=== PATIENT | female | born 1935 | race African-American/Black ===

== ENCOUNTER 2018-01-03 16:26 | Inpatient (IN) | payer MEDICARE, OTHER ==
[~2018-01-03] VITALS: Ht 157.5 cm; Wt 895.8 kg
[2018-01-03 16:40] VITALS: BP 126/58
[2018-01-03] MEDS ORDERED: Solu-MEDROL 125mg Inj IVP ONE (16:45)
[2018-01-03] MEDS: Albuterol ud Inhalation HHN SCH ×3 (16:48→17:19)
[2018-01-03] MEDS: Ipratropium 0.02% Inh Soln 2.5ml UD HHN SCH ×3 (16:48→17:19)
[2018-01-03] MEDS ORDERED: AMIODARONE HCL400 M1 ORAL (16:50)
[2018-01-03] MEDS ORDERED: ASPIRIN81 MG ORAL (16:50)
[2018-01-03] MEDS ORDERED: COLACE100 MG ORAL (16:53)
[2018-01-03] MEDS ORDERED: ATORVASTATIN CA40 MG ORAL (16:53)
[2018-01-03] MEDS ORDERED: CRANBERRY450 M4 PO (16:53)
[2018-01-03] MEDS ORDERED: MULTIVITAMINS1 EAC8 ORAL (16:53)
[2018-01-03] MEDS ORDERED: ADVAIR 250-501 EACH INH ×2 (16:53→18:33)
[2018-01-03] MEDS ORDERED: POTASSIUM CHLO20 ME1 ORAL (16:53)
[2018-01-03] MEDS ORDERED: CARVEDILOL6.25 MG ORAL ×2 (16:53→18:29)
[2018-01-03] MEDS ORDERED: HEPARIN SO5000 UNIT2 SUBQ (16:53)
[2018-01-03] MEDS ORDERED: ZANTAC150 MG ORAL (16:54)
[2018-01-03] MEDS ORDERED: ACETAMINOPHEN325 M1 ORAL ×2 (16:54→18:44)
[2018-01-03] MEDS ORDERED: MONTELUKAST SOD10 MG ORAL ×2 (16:54→18:36)
[2018-01-03] MEDS ORDERED: ROXICODONE15 MG ORAL (16:54)
[2018-01-03] MEDS ORDERED: LORazepam Inj 2mg/ml 1ml IV ONE (17:00)
[2018-01-03] MEDS ORDERED: SIMETHICONE80 MG ORAL ×2 (17:03→18:48)
[2018-01-03] MEDS ORDERED: NITROSTAT0.4 M2 SL (17:03)
[2018-01-03] MEDS ORDERED: ZOFRAN4 M1 ORAL (17:03)
[2018-01-03 17:42] LABS: BASOPHILS % (AUTO) 0.8 % (0.0-2.0); HEMATOCRIT 39.9 % (37.0-47.0); HEMOGLOBIN 12.4 G/DL (12.0-16.0); LYMPHOCYTES % (AUTO) 26.7 % (20.0-45.0); MEAN CORPUSCULAR VOLUME 86 FL (80-99); MONOCYTES % (AUTO) 10.1 % (1.0-10.0); NEUTROPHILS % (AUTO) 62.4 % (45.0-75.0); PLATELET COUNT 184 K/UL (150-450); RED BLOOD COUNT 4.66 M/UL (4.20-5.40); RED CELL DISTRIBUTION WIDTH 14.8 % (11.6-14.8); WHITE BLOOD COUNT 7.1 K/UL (4.8-10.8)
[2018-01-03 18:00] VITALS: BP 134/61
[2018-01-03] MEDS ORDERED: Oseltamivir 75mg cap ORAL ONE (18:15)
[2018-01-03] MEDS ORDERED: PACERONE100 MG ORAL (18:25)
[2018-01-03] MEDS ORDERED: CRANBERRY450 M3 PO (18:27)
[2018-01-03 18:30] LABS: ALANINE AMINOTRANSFERASE 86 U/L (12-78); ALBUMIN 3.3 G/DL (3.4-5.0); ALBUMIN/GLOBULIN RATIO 0.7 (1.0-2.7); ALKALINE PHOSPHATASE 131 U/L (46-116); ASPARTATE AMINO TRANSFERASE 79 U/L (15-37); BILIRUBIN,TOTAL 0.2 MG/DL (0.2-1.0); BLOOD UREA NITROGEN 67 mg/dL (7-18); CALCIUM 8.4 MG/DL (8.5-10.1); CARBON DIOXIDE 27 MMOL/L (21-32); CKMB 0.7 NG/ML (0.0-3.6); CREATINE KINASE 113 U/L (26-308); CREATININE 1.9 MG/DL (0.55-1.30)
[2018-01-03 18:33] LABS: CHLORIDE 99 MMOL/L (98-107); POTASSIUM 5.9 MMOL/L (3.5-5.1); SODIUM 132 MMOL/L (136-145)
[2018-01-03] MEDS ORDERED: ATORVASTATIN CA80 MG ORAL (18:35)
[2018-01-03] MEDS ORDERED: OXYCODONE HCL5 M2 ORAL (18:45)
[2018-01-03] MEDS ORDERED: Albuterol/Ipratropium 3ml neb HHN PRN (18:45)
[2018-01-03] MEDS ORDERED: Nitroglycerin Subl 0.4mg tab SL PRN (18:45)
[2018-01-03] MEDS ORDERED: Sodium Polystyrene Sulfonate 15gm Powder ORAL ONE (18:45)
[2018-01-03] MEDS ORDERED: Azithromycin 500 MG in NS 275 ML IV ONE (18:45)
[2018-01-03] MEDS ORDERED: LORazepam Inj 2mg/ml 1ml IV PRN (18:45)
[2018-01-03] MEDS ORDERED: Piperacillin/Tazobactam 3.375 GM in NS 110 ML IVPB ONE (18:45)
[2018-01-03] MEDS ORDERED: Promethazine/Codeine 5ml UD ORAL PRN (18:45)
[2018-01-03] MEDS ORDERED: Azithromycin 500mg Inj IV ONE ×2 (18:48→20:11)
[2018-01-03] MEDS ORDERED: Zosyn 3.375gm inj ONE (18:50)
--- NOTE | 2018-01-03 18:51 | Emergency Room Report ---
History of Present Illness General Chief Complaint: Dyspnea/Respdistress Source: Medical Record Present Illness HPI 82-year-old female presents to ED for evaluation. Patient presents with shortness of breath. Starting today at [facility]. History of COPD. Started on breathing treatments. Upon arrival patient appears anxious, screaming. Denies chest pain. Denies fevers chills at bedside states patient has history of CHF and COPD. Does have some anxiety. Susceptible to fluid overload. No other aggravating or relieving factors. Denies any other associated symptoms Allergies: Coded Allergies: MORPHINE (Verified Allergy, Unknown, 01/03/18) Uncoded Allergies: LACTOSE (Allergy, Unknown, 01/03/18) Patient History Past Medical History: HTN, CAD, COPD Past Surgical History: pacemaker Pertinent Family History: none Social History: Denies: smoking, alcohol use, drug use Now: No Immunizations: UTD Reviewed Nursing Documentation: PMH: Agreed, PSxH: Agreed Nursing Documentation-PMH Past Medical History: No History, Except For Hx Cardiac Problems: Yes - heart failure, CAD, Anemia Hx Hypertension: Yes Hx Pacemaker: Yes Hx COPD: Yes Review of Systems All Other Systems: negative except mentioned in HPI Physical Exam Vital Signs Date Time Temp Pulse Resp B/P (MAP) Pulse Ox O2 Delivery O2 Flow Rate FiO2 01/03/18 16:25 97.8 87 26 107/67 97 Non-Rebreather 97.9 01/03/18 16:40 21 01/03/18 16:40 8.0 Sp02 EP Interpretation: reviewed, normal General Appearance: alert, GCS 15, non-toxic, mild distress Head: normocephalic, atraumatic Eyes: bilateral eye normal inspection, bilateral eye PERRL ENT: hearing grossly normal, normal pharynx, no angioedema, normal voice Neck: full range of motion, supple/symm/no masses Respiratory: chest non-tender, crackles, speaking full sentences, wheezing Cardiovascular #1: regular rate, rhythm, no edema Cardiovascular #2: 2+ carotid (R), 2+ carotid (L), 2+ radial (R), 2+ radial (L) , 2+ dorsalis pedis (R), 2+ dorsalis pedis (L) Gastrointestinal: normal bowel sounds, non tender, soft, non-distended, no guarding, no rebound Rectal: deferred Genitourinary: normal inspection, no CVA tenderness Musculoskeletal: back normal, gait/station normal, normal range of motion, non- tender Neurologic: alert, oriented x3, responsive, motor strength/tone normal, sensory intact, speech normal Psychiatric: judgement/insight normal, memory normal, no suicidal/homicidal ideation, anxious Reflexes: 3+ bicep (R), 3+ bicep (L), 3+ tricep (R), 3+ tricep (L), 3+ knee (R) , 3+ knee (L) Skin: normal color, no rash, warm/dry, well hydrated Lymphatic: no adenopathy Procedures Critical Care Time Critical Care Time i. I feel this is a highly complex case requiring extensive working including EKG/Rhythm strip, Xray/CT/US, Blood/urine lab work, repeat exams while in ED, and administration of strong opiates/narcotics for pain control, admission to hospital or close patient follow up. Total time: 30 min bedside evaluation and treatment excludes procedures (EKG). Reason for critical care: COPD, respiratory distress, hyperkalemia, elevated troponin Possible complications: hypotension, hypertension, MA, shock, arrhythmias, metabolic acidosis, end organ damage, respiratory failure. Interventions: Labs, EKG, chest x-ray, nebulizer treatment, ABG, BiPAP. Kayexalate. Antibiotics. Aspirin. Course: Patient presented with shortness of breath. nebulizer treatments started. ABG shows acidosis. BIPAP started. Lactic elevated. Troponin 0.241. Potassium 5.9. Given Kayexalate. Given antibiotics. Given aspirin. Consultations: nursing staff, EMS, family Performed by: Dr Durand Tolerated well condition = serious j. because of unstable vital signs this patient had a condition that could potentially threaten life or limb. I feel this is a critical patient who required my full attention while patient was considered critical. Total Critical Care Time excluding procedures was greater than 35 minutes Medical Decision Making Diagnostic Impression: Primary Impression: CHF exacerbation Qualified Codes: I50.9 - Heart failure, unspecified Additional Impressions: COPD exacerbation Renal insufficiency Hyperkalemia, diminished renal excretion Elevated troponin I level Influenza B ER Course Hospital Course 82-year-old F presenting to ED with SOB. h/o COPD/CHF Differential diagnoses include: Pneumonia, CHF exacerbation, pneumothorax, fluid overload Clinical course Patient placed on stretcher. On potline monitor with stable vitals. After initial history and physical, I ordered nebulizer treatments. I ordered labs, IV fluids, EKG, chest x-ray, blood cultures, UA. Labs - no leukocytosis noted, hemoglobin/hematocrit stable, BUN/Cr elevated, K 5.9, trop 0.241, lactate elevated him influenza B-positive CXR - cardiomegaly, bilateral interstitial congestion. pacemaker. ?PNA EKG - paced rhythm ABG shows some acidosis. BiPAP started. Patient given Ativan. Tolerating BiPAP abx given. Given aspirin. Given Kayexalate. given tamiflu Case discussed with Dr. Garcia and he agreed to the patient to his service for further care and support I feel this is a highly complex case requiring extensive working including EKG/ Rhythm strip, Xray/CT/US, Blood/urine lab work, repeat exams while in ED, and administration of strong opiates/narcotics for pain control, admission to hospital or close patient follow up. Diagnosis - COPD exacerbation, CHF exacerbation, renal insufficiency, hyperkalemia, elevated troponin, influenza B Patient admitted to [facility] in serious condition Labs Test 01/03/18 17:20 01/03/18 17:35 White Blood Count 7.1 K/UL (4.8-10.8) Red Blood Count 4.66 M/UL (4.20-5.40) Hemoglobin 12.4 G/DL (12.0-16.0) Hematocrit 39.9 % (37.0-47.0) Mean Corpuscular Volume 86 FL (80-99) Mean Corpuscular Hemoglobin 26.6 PG (27.0-31.0) Mean Corpuscular Hemoglobin Concent 31.1 G/DL (32.0-36.0) Red Cell Distribution Width 14.8 % (11.6-14.8) Platelet Count 184 K/UL (150-450) Mean Platelet Volume 7.7 FL (6.5-10.1) Neutrophils (%) (Auto) 62.4 % (45.0-75.0) Lymphocytes (%) (Auto) 26.7 % (20.0-45.0) Monocytes (%) (Auto) 10.1 % (1.0-10.0) Eosinophils (%) (Auto) 0.0 % (0.0-3.0) Basophils (%) (Auto) 0.8 % (0.0-2.0) Sodium Level 132 MMOL/L (136-145) Potassium Level 5.9 MMOL/L (3.5-5.1) Chloride Level 99 MMOL/L (98-107) Carbon Dioxide Level 27 MMOL/L (21-32) Blood Urea Nitrogen 67 mg/dL (7-18) Creatinine 1.9 MG/DL (0.55-1.30) Estimat Glomerular Filtration Rate mL/min (>60) Glucose Level 120 MG/DL (74-106) Lactic Acid Level 2.40 mmol/L (0.66-2.22) Calcium Level 8.4 MG/DL (8.5-10.1) Total Bilirubin 0.2 MG/DL (0.2-1.0) Aspartate Amino Transf (AST/SGOT) 79 U/L (15-37) Alanine Aminotransferase (ALT/SGPT) 86 U/L (12-78) Alkaline Phosphatase 131 U/L (46-116) Total Creatine Kinase 113 U/L (26-308) Creatine Kinase MB 0.7 NG/ML (0.0-3.6) Creatine Kinase MB Relative Index 0.6 Troponin I 0.241 ng/mL (0.000-0.056) Pro-B-Type Natriuretic Peptide 6307 pg/mL (0-125) Total Protein 7.8 G/DL (6.4-8.2) Albumin 3.3 G/DL (3.4-5.0) Globulin 4.5 g/dL Albumin/Globulin Ratio 0.7 (1.0-2.7) Arterial Blood pH 7.248 (7.350-7.450) Arterial Blood Partial Pressure CO2 54.6 mmHg (35.0-45.0) Arterial Blood Partial Pressure O2 214.6 mmHg (75.0-100.0) Arterial Blood HCO3 23.3 mmol/L (22.0-26.0) Arterial Blood Oxygen Saturation 98.7 % (92.0-98.0) Arterial Blood Base Excess -4.4 Jorden Test Positive EKG Diagnostic Results Rate: normal Rhythm: other - paced ST Segments: no acute changes ASA given to the pt in ED: Yes Rhythm Strip Diag. Results EP Interpretation: yes Rhythm: no PVC's, no ectopy Chest X-Ray Diagnostic Results Chest X-Ray Diagnostic Results : Chest X-Ray Ordered: Yes # of Views/Limited/Complete: 1 View Indication: Shortness of Breath Interpretation: no pneumothorax, other - cardiomegaly. bilateral interstitial congestion. pacemaker Impression: Other - chf Electronically Signed by: Electronically signed by Obed Durand MD Last Vital Signs Date Time Temp Pulse Resp B/P (MAP) Pulse Ox O2 Delivery O2 Flow Rate FiO2 01/03/18 18:21 73 30 96 Facial 25 01/03/18 18:00 90.7 134/61 8.0 90.7 Status: improved Disposition: ADMITTED INPATIENT Condition: Serious Referrals: NON PHYSICIAN (PCP) OBED DURAND M.D. Jan 03, 2018 18:51
[2018-01-03] MEDS ORDERED: FUROSEMIDE40 MG ORAL (18:53)
[2018-01-03] MEDS ORDERED: PANTOPRAZOLE SO40 MG ORAL (18:54)
[2018-01-03] MEDS ORDERED: DUONEB 0.5-3(2.53 ML HHN (18:58)
[2018-01-03 20:00] VITALS: BP 112/50
[2018-01-03 21:00] VITALS: BP 96/45
[2018-01-03] MEDS: Atorvastatin 80mg tab ORAL SCH (21:00)
[2018-01-03] MEDS: Heparin 5000 units/ml inj SUBQ SCH (21:00)
[2018-01-03] MEDS: Solu-MEDROL 125mg Inj IV SCH (23:20)
[2018-01-04] MEDS: Solu-MEDROL 125mg Inj IV SCH ×4 (05:49→23:35)
[2018-01-04 06:58] LABS: BASOPHILS % (AUTO) 0.4 % (0.0-2.0); HEMATOCRIT 32.5 % (37.0-47.0); HEMOGLOBIN 10.3 G/DL (12.0-16.0); LYMPHOCYTES % (AUTO) 11.2 % (20.0-45.0); MEAN CORPUSCULAR VOLUME 85 FL (80-99); MONOCYTES % (AUTO) 4.3 % (1.0-10.0); NEUTROPHILS % (AUTO) 84.1 % (45.0-75.0); PLATELET COUNT 135 K/UL (150-450); RED BLOOD COUNT 3.82 M/UL (4.20-5.40); RED CELL DISTRIBUTION WIDTH 14.5 % (11.6-14.8); WHITE BLOOD COUNT 4.7 K/UL (4.8-10.8)
[2018-01-04 07:08] LABS: ALANINE AMINOTRANSFERASE 69 U/L (12-78); ALBUMIN 2.6 G/DL (3.4-5.0); ALBUMIN/GLOBULIN RATIO 0.6 (1.0-2.7); ALKALINE PHOSPHATASE 105 U/L (46-116); ANION GAP 8 mmol/L (5-15); ASPARTATE AMINO TRANSFERASE 65 U/L (15-37); BILIRUBIN,TOTAL 0.2 MG/DL (0.2-1.0); BLOOD UREA NITROGEN 63 mg/dL (7-18); CALCIUM 7.9 MG/DL (8.5-10.1); CARBON DIOXIDE 25 MMOL/L (21-32); CHLORIDE 107 MMOL/L (98-107); CREATININE 1.8 MG/DL (0.55-1.30); POTASSIUM 5.3 MMOL/L (3.5-5.1); SODIUM 139 MMOL/L (136-145)
[2018-01-04 07:25] LABS: APPEARANCE,URINE CLEAR; BILIRUBIN, URINE NEGATIVE (NEGATIVE); COLOR,URINE PALE YELLOW; GLUCOSE, URINE (UA) NEGATIVE (NEGATIVE); KETONES,URINE NEGATIVE (NEGATIVE); LEUKOCYTE ESTERASE ,URINE NEGATIVE (NEGATIVE); NITRITE,URINE NEGATIVE (NEGATIVE); PH,URINE 6 (4.5-8.0); PROTEIN,URINE 3+ (NEGATIVE); UROBILINOGEN,URINE NORMAL MG/DL (0.0-1.0)
[2018-01-04 08:00] VITALS: BP 99/62
--- NOTE | 2018-01-04 08:08 | Consultation ---
History of Present Illness General Chief Complaint: Dyspnea/Respdistress Present Illness Allergies: Coded Allergies: MORPHINE (Verified Allergy, Unknown, 01/03/18) Uncoded Allergies: LACTOSE (Allergy, Unknown, 01/03/18) Medication History Scheduled Amiodarone Hcl* (Pacerone*), 100 MG ORAL DAILY, (Reported) Aspirin* (Aspirin*), 81 MG ORAL DAILY, (Reported) Atorvastatin Calcium* (Lipitor*), 80 MG ORAL BEDTIME, (Reported) Carvedilol* (Carvedilol*), 6.25 MG ORAL BID, (Reported) Cranberry Fruit Concentrate (Cranberry), 450 MG PO DAILY, (Reported) Docusate Sodium* (Colace*), 100 MG ORAL DAILY, (Reported) Fluticasone/Salmeterol (Advair 250-50 Diskus), 1 PUFF INH BID, (Reported) Furosemide* (Lasix*), 40 MG ORAL BID, (Reported) Heparin Sod (Porcine) (Heparin Sodium*), 5,000 UNITS SUBQ EVERY 12 HOURS, ( Reported) Montelukast Sodium* (Montelukast Sodium*), 10 MG ORAL BEDTIME, (Reported) Multivitamin With Minerals (Multivitamins With Minerals*), 1 TAB ORAL DAILY, ( Reported) Pantoprazole* (Pantoprazole*), 40 MG ORAL DAILY, (Reported) Potassium Chloride* (K-Dur*), 20 MEQ ORAL TWICE A DAY, (Reported) Ranitidine Hcl* (Zantac*), 150 MG ORAL BEDTIME, (Reported) Scheduled PRN Acetaminophen* (Acetaminophen 325MG Tablet*), 650 MG ORAL Q6H PRN for Mild Pain/ Temp > 100.5, (Reported) Ipratropium/Albuterol Sulfate (DuoNeb 0.5-3(2.5)mg/3ml), 3 ML HHN TID PRN for Shortness of Breath, (Reported) Nitroglycerin (Nitrostat), 0.4 MG SL for chest pain, (Reported) Ondansetron (Zofran), 4 MG ORAL Q6H PRN for Nausea & Vomiting, (Reported) Oxycodone Hcl* (Oxycodone Hcl*), 5 MG ORAL Q6H PRN for For Pain, (Reported) Simethicone* (Simethicone*), 80 MG ORAL Q6HR PRN for GAS PAIN, (Reported) Patient History Healthcare decision maker ASHLEY MADERA Resuscitation status Full Code Advanced Directive on File Yes Physical Exam Last 24 Hour Vital Signs Date Time Temp Pulse Resp B/P (MAP) Pulse Ox O2 Delivery O2 Flow Rate FiO2 01/04/18 05:46 60 20 98 Facial 25 01/04/18 04:00 60 01/04/18 04:00 8.0 25 01/04/18 03:23 61 22 99 Facial 25 01/04/18 00:58 60 20 98 Facial 25 01/04/18 00:00 8.0 25 01/04/18 00:00 60 01/03/18 22:31 60 20 98 Facial 25 01/03/18 21:10 99.8 60 22 96/45 99 8.0 25 99.8 01/03/18 21:09 70 22 99 Facial 25 01/03/18 21:00 99.8 60 20 96/45 98 8.0 25 99.8 01/03/18 20:00 100.1 64 18 112/50 99 8.0 25 100.1 01/03/18 18:21 73 30 96 Facial 25 01/03/18 18:00 90.7 60 27 134/61 100 Simple Mask 8.0 90.7 01/03/18 17:56 62 28 97 Room Air 21 01/03/18 16:48 69 31 97 Room Air 21 01/03/18 16:40 80 31 Simple Mask 8.0 21 01/03/18 16:40 99.2 80 31 126/58 100 Simple Mask 8.0 99.2 01/03/18 16:40 69 31 Room Air 21 01/03/18 16:25 97.8 87 26 107/67 97 Non-Rebreather 97.9 Intake and Output 01/03/18 01/04/18 19:00 07:00 Intake Total 0 ml 210 ml Output Total 300 ml Balance 0 ml -90 ml Intake Oral 0 ml IV Total 210 ml Output Urine Total 300 ml # Bowel Movements 4 Laboratory Tests Test 01/03/18 17:20 01/03/18 17:35 01/03/18 18:15 01/04/18 05:45 White Blood Count 7.1 K/UL (4.8-10.8) 4.7 K/UL (4.8-10.8) L Red Blood Count 4.66 M/UL (4.20-5.40) 3.82 M/UL (4.20-5.40) L Hemoglobin 12.4 G/DL (12.0-16.0) 10.3 G/DL (12.0-16.0) L Hematocrit 39.9 % (37.0-47.0) 32.5 % (37.0-47.0) L Mean Corpuscular Volume 86 FL (80-99) 85 FL (80-99) Mean Corpuscular Hemoglobin 26.6 PG (27.0-31.0) L 27.0 PG (27.0-31.0) Mean Corpuscular Hemoglobin Concent 31.1 G/DL (32.0-36.0) L 31.8 G/DL (32.0-36.0) L Red Cell Distribution Width 14.8 % (11.6-14.8) 14.5 % (11.6-14.8) Platelet Count 184 K/UL (150-450) 135 K/UL (150-450) L Mean Platelet Volume 7.7 FL (6.5-10.1) 8.1 FL (6.5-10.1) Neutrophils (%) (Auto) 62.4 % (45.0-75.0) 84.1 % (45.0-75.0) H Lymphocytes (%) (Auto) 26.7 % (20.0-45.0) 11.2 % (20.0-45.0) L Monocytes (%) (Auto) 10.1 % (1.0-10.0) H 4.3 % (1.0-10.0) Eosinophils (%) (Auto) 0.0 % (0.0-3.0) 0.0 % (0.0-3.0) Basophils (%) (Auto) 0.8 % (0.0-2.0) 0.4 % (0.0-2.0) Sodium Level 132 MMOL/L (136-145) L 139 MMOL/L (136-145) Potassium Level 5.9 MMOL/L (3.5-5.1) H 5.3 MMOL/L (3.5-5.1) H Chloride Level 99 MMOL/L (98-107) 107 MMOL/L (98-107) Carbon Dioxide Level 27 MMOL/L (21-32) 25 MMOL/L (21-32) Blood Urea Nitrogen 67 mg/dL (7-18) H 63 mg/dL (7-18) H Creatinine 1.9 MG/DL (0.55-1.30) H 1.8 MG/DL (0.55-1.30) H Estimat Glomerular Filtration Rate mL/min (>60) mL/min (>60) Glucose Level 120 MG/DL (74-106) H 201 MG/DL (74-106) H Lactic Acid Level 2.40 mmol/L (0.66-2.22) H 1.30 mmol/L (0.66-2.22) Calcium Level 8.4 MG/DL (8.5-10.1) L 7.9 MG/DL (8.5-10.1) L Total Bilirubin 0.2 MG/DL (0.2-1.0) 0.2 MG/DL (0.2-1.0) Aspartate Amino Transf (AST/SGOT) 79 U/L (15-37) H 65 U/L (15-37) H Alanine Aminotransferase (ALT/SGPT) 86 U/L (12-78) H 69 U/L (12-78) Alkaline Phosphatase 131 U/L (46-116) H 105 U/L (46-116) Total Creatine Kinase 113 U/L (26-308) Creatine Kinase MB 0.7 NG/ML (0.0-3.6) Creatine Kinase MB Relative Index 0.6 Troponin I 0.241 ng/mL (0.000-0.056) Pro-B-Type Natriuretic Peptide 6307 pg/mL (0-125) H Total Protein 7.8 G/DL (6.4-8.2) 6.6 G/DL (6.4-8.2) Albumin 3.3 G/DL (3.4-5.0) L 2.6 G/DL (3.4-5.0) L Globulin 4.5 g/dL 4.0 g/dL Albumin/Globulin Ratio 0.7 (1.0-2.7) L 0.6 (1.0-2.7) L Arterial Blood pH 7.248 (7.350-7.450) Arterial Blood Partial Pressure CO2 54.6 mmHg (35.0-45.0) H Arterial Blood Partial Pressure O2 214.6 mmHg (75.0-100.0) H Arterial Blood HCO3 23.3 mmol/L (22.0-26.0) Arterial Blood Oxygen Saturation 98.7 % (92.0-98.0) H Arterial Blood Base Excess -4.4 Jorden Test Positive Anion Gap 8 mmol/L (5-15) Microbiology Date/Time Source Procedure Growth Status 01/03/18 16:42 Nasal Nares Influenza Types A,B Antigen (MARI) - Final Complete Height (Feet): 5 Height (Inches): 2.00 Weight (Pounds): 196 Medications Current Medications Medications (Trade) Dose Ordered Sig/Jordan Route PRN Reason Start Time Stop Time Status Last Admin Dose Admin Acetaminophen (Tylenol) 650 mg Q4H PRN ORAL fever 01/03/18 18:45 02/02/18 18:44 Albuterol/ Ipratropium (Albuterol/ Ipratropium) 3 ml Q4H PRN HHN dyspnea 01/03/18 18:45 01/08/18 18:44 Amiodarone HCl (Cordarone) 100 mg DAILY ORAL 01/04/18 09:00 02/03/18 08:59 Atorvastatin Calcium (Lipitor) 80 mg BEDTIME ORAL 01/03/18 21:00 02/02/18 20:59 Carvedilol (Coreg) 6.25 mg BID ORAL 01/04/18 09:00 02/03/18 08:59 Clonidine HCl (Catapres Tab) 0.1 mg Q4H PRN ORAL sbp more than 160 01/03/18 18:45 02/02/18 18:44 Dextrose (Dextrose 50%) STAT PRN IV Hypoglycemia 01/03/18 18:45 02/02/18 18:44 Heparin Sodium (Porcine) (Heparin 5000 units/ml) 5,000 units EVERY 12 HOURS SUBQ 01/03/18 21:00 02/02/18 20:59 Levofloxacin 100 ml @ 100 mls/hr Q24H IVPB 01/03/18 23:00 01/10/18 22:59 01/03/18 23:20 Lorazepam (Ativan 2mg/ml 1ml) 0.5 mg Q4H PRN IV For Anxiety 01/03/18 18:45 01/10/18 18:44 Methylprednisolone Sodium Succinate (Solu-MEDROL) 60 mg EVERY 6 HOURS IV 01/04/18 00:00 02/03/18 00:00 01/04/18 05:49 Nitroglycerin (Ntg) 0.4 mg Q5M X 3 DOSES PRN SL Prn Chest Pain 01/03/18 18:45 02/02/18 18:44 Ondansetron HCl (Zofran) 4 mg Q6H PRN IVP Nausea & Vomiting 01/03/18 18:45 02/02/18 18:44 Promethazine HCl/ Codeine (Phenergan with Codeine) 5 ml Q6H PRN ORAL cough 01/03/18 18:45 02/02/18 18:44 Temazepam (Restoril) 15 mg HSPRN PRN ORAL Insomnia 01/03/18 18:45 01/10/18 18:44 Assessment/Plan Assessment/Plan ASSESSMENT acute hypoxemic RF acute COPD exacerbation probably acute CHF exacerbation elevated troponin hyperkalemia influenza B infection ROSA vs CKD HTN pacemaker PAF anemia [facility] OF [facility] O2 titrate to keep sat above 92%, not hypercapnic at thsi timeb pulm toilet IV steroids trial of theophylline a/tussive prn empiric abx + Tamiflu droplet isolation sputum cx serial troponin cardio eval ECHO resume home meds : Amiodarone, statin, BB apparently hx of PAF, not om a/coagulation just ASA SR on tele check TSH monitor renal parameters, lytes, correct as needed CKD? vs ROSA monitor counts DVT prophylaxis case discussed and evaluated by supervising physician Estuardo ([facility]Komal NP Jan 04, 2018 08:08
--- NOTE | 2018-01-04 09:21 | History and Physical ---
History of Present Illness General Date patient seen: Jan 04, 2018 Time patient seen: 08:30 Reason for Hospitalization: Dyspnea/Respdistress Present Illness HPI 82-year-old female with PMH of COPD, CHF, HTN, pacemaker presented to ED with shortness of breath. Upon arrival patient appeared anxious, screaming. Denied chest pain. Denied fevers chills Workup in ED revealed no leukocytosis, hypoxia, tachypnea, afebrile initially placed on NRM stable HH elevated troponin-0.241 lactic acid-2.4 K-5.9 renal insufficiency BUN-67 and creat-1.9 elevated LFT CXR with evidence of CHF pro BNP 6307 ECG with paced rhythm ABG with hypercapnia and acidosis influenza screen + influenza B patient was admitted for further management Allergies: Coded Allergies: MORPHINE (Verified Allergy, Unknown, 01/03/18) Uncoded Allergies: LACTOSE (Allergy, Unknown, 01/03/18) Medication History Scheduled Amiodarone Hcl* (Pacerone*), 100 MG ORAL DAILY, (Reported) Aspirin* (Aspirin*), 81 MG ORAL DAILY, (Reported) Atorvastatin Calcium* (Lipitor*), 80 MG ORAL BEDTIME, (Reported) Carvedilol* (Carvedilol*), 6.25 MG ORAL BID, (Reported) Cranberry Fruit Concentrate (Cranberry), 450 MG PO DAILY, (Reported) Docusate Sodium* (Colace*), 100 MG ORAL DAILY, (Reported) Fluticasone/Salmeterol (Advair 250-50 Diskus), 1 PUFF INH BID, (Reported) Furosemide* (Lasix*), 40 MG ORAL BID, (Reported) Heparin Sod (Porcine) (Heparin Sodium*), 5,000 UNITS SUBQ EVERY 12 HOURS, ( Reported) Montelukast Sodium* (Montelukast Sodium*), 10 MG ORAL BEDTIME, (Reported) Multivitamin With Minerals (Multivitamins With Minerals*), 1 TAB ORAL DAILY, ( Reported) Pantoprazole* (Pantoprazole*), 40 MG ORAL DAILY, (Reported) Potassium Chloride* (K-Dur*), 20 MEQ ORAL TWICE A DAY, (Reported) Ranitidine Hcl* (Zantac*), 150 MG ORAL BEDTIME, (Reported) Scheduled PRN Acetaminophen* (Acetaminophen 325MG Tablet*), 650 MG ORAL Q6H PRN for Mild Pain/ Temp > 100.5, (Reported) Ipratropium/Albuterol Sulfate (DuoNeb 0.5-3(2.5)mg/3ml), 3 ML HHN TID PRN for Shortness of Breath, (Reported) Nitroglycerin (Nitrostat), 0.4 MG SL for chest pain, (Reported) Ondansetron (Zofran), 4 MG ORAL Q6H PRN for Nausea & Vomiting, (Reported) Oxycodone Hcl* (Oxycodone Hcl*), 5 MG ORAL Q6H PRN for For Pain, (Reported) Simethicone* (Simethicone*), 80 MG ORAL Q6HR PRN for GAS PAIN, (Reported) Patient History Healthcare decision maker ASHLEY MADERA Resuscitation status Full Code Advanced Directive on File Yes Review of Systems ROS Narrative unable to provide info due to being on BIPAP Physical Exam General Appearance: alert, other - elderly morbidly obese AA female on BiPAP Lines, tubes and drains: peripheral, other - BiPAP mask on 15 FiO2 25% HEENT: normocephalic, atraumatic, anicteric Respiratory/Chest: crackles/rales, expiratory wheezing - some exp whezes , other - pacemaker Cardiovascular/Chest: normal rate - AV pacing Abdomen: normal bowel sounds, non tender - obese , soft Extremities: non-tender, no calf tenderness Skin Exam: warm/dry Neurologic: alert, responsive Musculoskeletal: atrophy - BLE Last 24 Hour Vital Signs Date Time Temp Pulse Resp B/P (MAP) Pulse Ox O2 Delivery O2 Flow Rate FiO2 01/04/18 09:14 68 21 98 Facial 25 01/04/18 06:58 60 18 98 Facial 25 01/04/18 05:46 60 20 98 Facial 25 01/04/18 04:00 60 01/04/18 04:00 8.0 25 01/04/18 03:23 61 22 99 Facial 25 01/04/18 00:58 60 20 98 Facial 25 01/04/18 00:00 8.0 25 01/04/18 00:00 60 01/03/18 22:31 60 20 98 Facial 25 01/03/18 21:10 99.8 60 22 96/45 99 8.0 25 99.8 01/03/18 21:09 70 22 99 Facial 25 01/03/18 21:00 99.8 60 20 96/45 98 8.0 25 99.8 01/03/18 20:00 100.1 64 18 112/50 99 8.0 25 100.1 01/03/18 18:21 73 30 96 Facial 25 01/03/18 18:00 90.7 60 27 134/61 100 Simple Mask 8.0 90.7 01/03/18 17:56 62 28 97 Room Air 21 01/03/18 16:48 69 31 97 Room Air 21 01/03/18 16:40 80 31 Simple Mask 8.0 21 01/03/18 16:40 99.2 80 31 126/58 100 Simple Mask 8.0 99.2 01/03/18 16:40 69 31 Room Air 21 01/03/18 16:25 97.8 87 26 107/67 97 Non-Rebreather 97.9 Intake and Output 01/03/18 01/04/18 19:00 07:00 Intake Total 0 ml 210 ml Output Total 300 ml Balance 0 ml -90 ml Intake Oral 0 ml IV Total 210 ml Output Urine Total 300 ml # Bowel Movements 4 Laboratory Tests Test 01/03/18 17:20 01/03/18 17:35 01/03/18 18:15 01/04/18 05:45 White Blood Count 7.1 K/UL (4.8-10.8) 4.7 K/UL (4.8-10.8) L Red Blood Count 4.66 M/UL (4.20-5.40) 3.82 M/UL (4.20-5.40) L Hemoglobin 12.4 G/DL (12.0-16.0) 10.3 G/DL (12.0-16.0) L Hematocrit 39.9 % (37.0-47.0) 32.5 % (37.0-47.0) L Mean Corpuscular Volume 86 FL (80-99) 85 FL (80-99) Mean Corpuscular Hemoglobin 26.6 PG (27.0-31.0) L 27.0 PG (27.0-31.0) Mean Corpuscular Hemoglobin Concent 31.1 G/DL (32.0-36.0) L 31.8 G/DL (32.0-36.0) L Red Cell Distribution Width 14.8 % (11.6-14.8) 14.5 % (11.6-14.8) Platelet Count 184 K/UL (150-450) 135 K/UL (150-450) L Mean Platelet Volume 7.7 FL (6.5-10.1) 8.1 FL (6.5-10.1) Neutrophils (%) (Auto) 62.4 % (45.0-75.0) 84.1 % (45.0-75.0) H Lymphocytes (%) (Auto) 26.7 % (20.0-45.0) 11.2 % (20.0-45.0) L Monocytes (%) (Auto) 10.1 % (1.0-10.0) H 4.3 % (1.0-10.0) Eosinophils (%) (Auto) 0.0 % (0.0-3.0) 0.0 % (0.0-3.0) Basophils (%) (Auto) 0.8 % (0.0-2.0) 0.4 % (0.0-2.0) Sodium Level 132 MMOL/L (136-145) L 139 MMOL/L (136-145) Potassium Level 5.9 MMOL/L (3.5-5.1) H 5.3 MMOL/L (3.5-5.1) H Chloride Level 99 MMOL/L (98-107) 107 MMOL/L (98-107) Carbon Dioxide Level 27 MMOL/L (21-32) 25 MMOL/L (21-32) Blood Urea Nitrogen 67 mg/dL (7-18) H 63 mg/dL (7-18) H Creatinine 1.9 MG/DL (0.55-1.30) H 1.8 MG/DL (0.55-1.30) H Estimat Glomerular Filtration Rate mL/min (>60) mL/min (>60) Glucose Level 120 MG/DL (74-106) H 201 MG/DL (74-106) H Lactic Acid Level 2.40 mmol/L (0.66-2.22) H 1.30 mmol/L (0.66-2.22) Calcium Level 8.4 MG/DL (8.5-10.1) L 7.9 MG/DL (8.5-10.1) L Total Bilirubin 0.2 MG/DL (0.2-1.0) 0.2 MG/DL (0.2-1.0) Aspartate Amino Transf (AST/SGOT) 79 U/L (15-37) H 65 U/L (15-37) H Alanine Aminotransferase (ALT/SGPT) 86 U/L (12-78) H 69 U/L (12-78) Alkaline Phosphatase 131 U/L (46-116) H 105 U/L (46-116) Total Creatine Kinase 113 U/L (26-308) Creatine Kinase MB 0.7 NG/ML (0.0-3.6) Creatine Kinase MB Relative Index 0.6 Troponin I 0.241 ng/mL (0.000-0.056) Pro-B-Type Natriuretic Peptide 6307 pg/mL (0-125) H Total Protein 7.8 G/DL (6.4-8.2) 6.6 G/DL (6.4-8.2) Albumin 3.3 G/DL (3.4-5.0) L 2.6 G/DL (3.4-5.0) L Globulin 4.5 g/dL 4.0 g/dL Albumin/Globulin Ratio 0.7 (1.0-2.7) L 0.6 (1.0-2.7) L Arterial Blood pH 7.248 (7.350-7.450) Arterial Blood Partial Pressure CO2 54.6 mmHg (35.0-45.0) H Arterial Blood Partial Pressure O2 214.6 mmHg (75.0-100.0) H Arterial Blood HCO3 23.3 mmol/L (22.0-26.0) Arterial Blood Oxygen Saturation 98.7 % (92.0-98.0) H Arterial Blood Base Excess -4.4 Jorden Test Positive Anion Gap 8 mmol/L (5-15) Microbiology Date/Time Source Procedure Growth Status 01/03/18 16:42 Nasal Nares Influenza Types A,B Antigen (MARI) - Final Complete Height (Feet): 5 Height (Inches): 2.00 Weight (Pounds): 196 Medications Current Medications Medications (Trade) Dose Ordered Sig/Jordan Route PRN Reason Start Time Stop Time Status Last Admin Dose Admin Acetaminophen (Tylenol) 650 mg Q4H PRN ORAL fever 01/03/18 18:45 02/02/18 18:44 Albuterol/ Ipratropium (Albuterol/ Ipratropium) 3 ml Q4H PRN HHN dyspnea 01/03/18 18:45 01/08/18 18:44 Amiodarone HCl (Cordarone) 100 mg DAILY ORAL 01/04/18 09:00 02/03/18 08:59 Atorvastatin Calcium (Lipitor) 80 mg BEDTIME ORAL 01/03/18 21:00 02/02/18 20:59 Carvedilol (Coreg) 6.25 mg BID ORAL 01/04/18 09:00 02/03/18 08:59 Clonidine HCl (Catapres Tab) 0.1 mg Q4H PRN ORAL sbp more than 160 01/03/18 18:45 02/02/18 18:44 Dextrose (Dextrose 50%) STAT PRN IV Hypoglycemia 01/03/18 18:45 02/02/18 18:44 Heparin Sodium (Porcine) (Heparin 5000 units/ml) 5,000 units EVERY 12 HOURS SUBQ 01/03/18 21:00 02/02/18 20:59 Levofloxacin 100 ml @ 100 mls/hr Q24H IVPB 01/03/18 23:00 01/10/18 22:59 01/03/18 23:20 Lorazepam (Ativan 2mg/ml 1ml) 0.5 mg Q4H PRN IV For Anxiety 01/03/18 18:45 01/10/18 18:44 Methylprednisolone Sodium Succinate (Solu-MEDROL) 60 mg EVERY 6 HOURS IV 01/04/18 00:00 02/03/18 00:00 01/04/18 05:49 Nitroglycerin (Ntg) 0.4 mg Q5M X 3 DOSES PRN SL Prn Chest Pain 01/03/18 18:45 02/02/18 18:44 Ondansetron HCl (Zofran) 4 mg Q6H PRN IVP Nausea & Vomiting 01/03/18 18:45 02/02/18 18:44 Promethazine HCl/ Codeine (Phenergan with Codeine) 5 ml Q6H PRN ORAL cough 01/03/18 18:45 02/02/18 18:44 Temazepam (Restoril) 15 mg HSPRN PRN ORAL Insomnia 01/03/18 18:45 01/10/18 18:44 Assessment/Plan Assessment/Plan ASSESSMENT acute hypoxemic hypercapnic RF requiring BiPAP acute COPD exacerbation probably acute CHF exacerbation elevated troponin hyperkalemia influenza B infection ROSA vs CKD HTN pacemaker PAF anemia dysphagia elevated LFT, probably liver congestion PLAN OF CARE VALENTINE O2 titrate to keep sat above 92%, not hypercapnic at this time wean from BiPAP as tolerated pulm toilet IV steroids trial of theophylline a/tussive prn empiric abx + Tamiflu droplet isolation sputum cx serial troponin cardio eval ECHO resume home meds : Amiodarone, statin, BB apparently hx of PAF, not om a/coagulation just ASA SR on tele check TSH monitor renal parameters, lytes, correct as needed, Kayexalate today CKD? vs ROSA monitor counts DVT prophylaxis swallow eval in am trend LFT, likely congested liver case discussed and evaluated by supervising physician Estuardo (Komal Villarreal NP Jan 04, 2018 09:21
[2018-01-04] MEDS: Carvedilol 6.25mg Tab ORAL SCH ×2 (10:09→18:49)
[2018-01-04] MEDS: Amiodarone 200mg tab ORAL SCH (10:09)
[2018-01-04] MEDS: Heparin 5000 units/ml inj SUBQ SCH ×2 (10:26→22:01)
[2018-01-04 12:00] VITALS: BP 98/67
--- NOTE | 2018-01-04 12:04 | Diagnostic Imaging Report ---
Indication: Dyspnea Comparison: None A single view chest radiograph was obtained. Findings: There is enlargement of the cardiac silhouette with pulmonary vascular redistribution and prominence, hazy vessel margins and the suggestion of interstitial edema consistent with CHF. Pacemaker is noted. Bones are osteopenic. IMPRESSION: CHF/interstitial edema
[2018-01-04] MEDS ORDERED: Sodium Polystyrene Sulfonate 15gm Powder ORAL ONE (12:15)
--- NOTE | 2018-01-04 13:31 | Cardiology Progress Note ---
Assessment/Plan Assessment/Plan full note dictated [id number] Objective Last 24 Hour Vital Signs Date Time Temp Pulse Resp B/P (MAP) Pulse Ox O2 Delivery O2 Flow Rate FiO2 01/04/18 12:30 60 01/04/18 10:09 68 99/62 01/04/18 09:14 68 21 98 Facial 25 01/04/18 08:00 98.0 63 18 99/62 100 Bi-pap 25 98.0 01/04/18 08:00 60 01/04/18 06:58 60 18 98 Facial 25 01/04/18 05:46 60 20 98 Facial 25 01/04/18 04:00 60 01/04/18 04:00 8.0 25 01/04/18 03:23 61 22 99 Facial 25 01/04/18 00:58 60 20 98 Facial 25 01/04/18 00:00 8.0 25 01/04/18 00:00 60 01/03/18 22:31 60 20 98 Facial 25 01/03/18 21:10 99.8 60 22 96/45 99 8.0 25 99.8 01/03/18 21:09 70 22 99 Facial 25 01/03/18 21:00 99.8 60 20 96/45 98 8.0 25 99.8 01/03/18 20:00 100.1 64 18 112/50 99 8.0 25 100.1 01/03/18 18:21 73 30 96 Facial 25 01/03/18 18:00 90.7 60 27 134/61 100 Simple Mask 8.0 90.7 01/03/18 17:56 62 28 97 Room Air 21 01/03/18 16:48 69 31 97 Room Air 21 01/03/18 16:40 80 31 Simple Mask 8.0 21 01/03/18 16:40 99.2 80 31 126/58 100 Simple Mask 8.0 99.2 01/03/18 16:40 69 31 Room Air 21 01/03/18 16:25 97.8 87 26 107/67 97 Non-Rebreather 97.9 Intake and Output 01/03/18 01/04/18 19:00 07:00 Intake Total 0 ml 210 ml Output Total 300 ml Balance 0 ml -90 ml Intake Oral 0 ml IV Total 210 ml Output Urine Total 300 ml # Bowel Movements 4 Laboratory Tests Test 01/03/18 17:20 01/03/18 17:35 01/03/18 18:15 01/04/18 05:45 White Blood Count 7.1 K/UL (4.8-10.8) 4.7 K/UL (4.8-10.8) L Red Blood Count 4.66 M/UL (4.20-5.40) 3.82 M/UL (4.20-5.40) L Hemoglobin 12.4 G/DL (12.0-16.0) 10.3 G/DL (12.0-16.0) L Hematocrit 39.9 % (37.0-47.0) 32.5 % (37.0-47.0) L Mean Corpuscular Volume 86 FL (80-99) 85 FL (80-99) Mean Corpuscular Hemoglobin 26.6 PG (27.0-31.0) L 27.0 PG (27.0-31.0) Mean Corpuscular Hemoglobin Concent 31.1 G/DL (32.0-36.0) L 31.8 G/DL (32.0-36.0) L Red Cell Distribution Width 14.8 % (11.6-14.8) 14.5 % (11.6-14.8) Platelet Count 184 K/UL (150-450) 135 K/UL (150-450) L Mean Platelet Volume 7.7 FL (6.5-10.1) 8.1 FL (6.5-10.1) Neutrophils (%) (Auto) 62.4 % (45.0-75.0) 84.1 % (45.0-75.0) H Lymphocytes (%) (Auto) 26.7 % (20.0-45.0) 11.2 % (20.0-45.0) L Monocytes (%) (Auto) 10.1 % (1.0-10.0) H 4.3 % (1.0-10.0) Eosinophils (%) (Auto) 0.0 % (0.0-3.0) 0.0 % (0.0-3.0) Basophils (%) (Auto) 0.8 % (0.0-2.0) 0.4 % (0.0-2.0) Sodium Level 132 MMOL/L (136-145) L 139 MMOL/L (136-145) Potassium Level 5.9 MMOL/L (3.5-5.1) H 5.3 MMOL/L (3.5-5.1) H Chloride Level 99 MMOL/L (98-107) 107 MMOL/L (98-107) Carbon Dioxide Level 27 MMOL/L (21-32) 25 MMOL/L (21-32) Blood Urea Nitrogen 67 mg/dL (7-18) H 63 mg/dL (7-18) H Creatinine 1.9 MG/DL (0.55-1.30) H 1.8 MG/DL (0.55-1.30) H Estimat Glomerular Filtration Rate mL/min (>60) mL/min (>60) Glucose Level 120 MG/DL (74-106) H 201 MG/DL (74-106) H Lactic Acid Level 2.40 mmol/L (0.66-2.22) H 1.30 mmol/L (0.66-2.22) Calcium Level 8.4 MG/DL (8.5-10.1) L 7.9 MG/DL (8.5-10.1) L Total Bilirubin 0.2 MG/DL (0.2-1.0) 0.2 MG/DL (0.2-1.0) Aspartate Amino Transf (AST/SGOT) 79 U/L (15-37) H 65 U/L (15-37) H Alanine Aminotransferase (ALT/SGPT) 86 U/L (12-78) H 69 U/L (12-78) Alkaline Phosphatase 131 U/L (46-116) H 105 U/L (46-116) Total Creatine Kinase 113 U/L (26-308) Creatine Kinase MB 0.7 NG/ML (0.0-3.6) Creatine Kinase MB Relative Index 0.6 Troponin I 0.241 ng/mL (0.000-0.056) Pro-B-Type Natriuretic Peptide 6307 pg/mL (0-125) H Total Protein 7.8 G/DL (6.4-8.2) 6.6 G/DL (6.4-8.2) Albumin 3.3 G/DL (3.4-5.0) L 2.6 G/DL (3.4-5.0) L Globulin 4.5 g/dL 4.0 g/dL Albumin/Globulin Ratio 0.7 (1.0-2.7) L 0.6 (1.0-2.7) L Arterial Blood pH 7.248 (7.350-7.450) Arterial Blood Partial Pressure CO2 54.6 mmHg (35.0-45.0) H Arterial Blood Partial Pressure O2 214.6 mmHg (75.0-100.0) H Arterial Blood HCO3 23.3 mmol/L (22.0-26.0) Arterial Blood Oxygen Saturation 98.7 % (92.0-98.0) H Arterial Blood Base Excess -4.4 Jorden Test Positive Anion Gap 8 mmol/L (5-15) Test 01/04/18 08:45 Troponin I 0.208 ng/mL (0.000-0.056) Microbiology Date/Time Source Procedure Growth Status 01/03/18 16:42 Nasal Nares Influenza Types A,B Antigen (MARI) - Final Complete ARCENIO PLATT Jan 04, 2018 13:31
[2018-01-04 16:00] VITALS: BP 98/67
[2018-01-04] MEDS ORDERED: Tubing IV Secondary IV ONE (16:39)
[2018-01-04 20:00] VITALS: BP 134/67
[2018-01-04] MEDS: Atorvastatin 80mg tab ORAL SCH (21:00)
--- NOTE | 2018-01-04 23:30 | Consultation ---
DATE OF CONSULTATION: 01/04/2018 CARDIOLOGY CONSULTATION CONSULTING PHYSICIAN: Sean Otero M.D. REFERRING PHYSICIAN: Dayo Garcia M.D. REASON FOR REFERRAL: Shortness of breath and abnormal cardiac enzymes. HISTORY OF PRESENT ILLNESS: This is an 82-year-old female, who is a resident of a convalescent facility. The patient is usually followed at [facility] whose records I have had a chance to review. Information is obtained from review of the patient's present chart, from discussion with the patient's and daughter as well as the patient herself, and the emergency room physician's data. According to the data from the convalescent facility, the nurse practitioner has seen the patient with a notation in the chart that the patient reportedly having some labored breathing with wheezes, tachypneic with 26 and a low-grade temperature of 99.8 degrees, and the patient's daughter wanted her mother to be transferred to the hospital and the patient was brought to [facility] by paramedics. At the present time, the patient herself denies any chest pain, shortness of breath, dizziness, or lightheadedness. The patient's family indicates that yesterday when one of her family members went to see her, they noted audible wheezes and they asked for this transfer of the patient. Denies any chest pain. Denies any shortness of breath. Denies any PND. Denies any orthopnea, palpitations, dizziness, or lightheadedness. She has had extensive evaluation at [facility], recently hospitalized and discharged on 12/25/2017. 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 ALLERGIES: She is allergic to lactose and morphine. SOCIAL HISTORY: She is a resident of a convalescent facility at the present time and does not smoke at this time nor drink and there are no reports of drug use. REVIEW OF SYSTEMS: GASTROINTESTINAL: The patient denies. GENITOURINARY: The patient denies. CONSTITUTIONAL: She denies. PULMONARY: She denies. PHYSICAL EXAMINATION: GENERAL: Shows to be elderly female, on the face mask. NECK: Supple. No jugular venous distention. No abdominojugular reflux noted. LUNGS: There are audible inspiratory and expiratory wheezes. CARDIAC: Regular rhythm. No heaves or thrills. ABDOMEN: Soft. Positive bowel sounds. EXTREMITIES: There is 1+ edema of the lower extremities. NEUROLOGICAL: She is awake, alert, responsive, but disoriented. LABORATORY AND DIAGNOSTIC DATA: Sodium 139, potassium 5.2, chloride 107, bicarbonate 25, BUN 63, and creatinine 1.8. Compared to her previous, basic creatinine levels of 1.5 have been previously documented in the [facility] records. Glucose of 201. Troponin was 0.241 and subsequently 0.208. Albumin of 2.6. AST and ALT within normal limits. Urinalysis is 0 to 2 WBCs. A chest x-ray was performed showing CHF. Her proBNP at the time of admission was . The patient's electrocardiogram showed a lot of motion artifact initially, subsequently appears to have V pacing and possibly atrial pacing as well. The telemetry shows AV pacing as well. ASSESSMENT AND PLAN: 1. Bronchospasms. 2. Chronic heart failure, systolic and diastolic. 3. Possible history of atrial fibrillation, not clear. 4. Coronary disease history. 5. Chronic kidney disease. 6. Diabetes mellitus type 2. 7. Pulmonary hypertension. 8. Abnormal cardiac enzymes of questionable significance in light of renal insufficiency. Dr. Garcia, this patient was seen in cardiac consultation. The patient will be treated for congestive heart failure and she has significant wheezes, which may be likely from a pulmonary point of view, although cardiogenic cause not entirely excluded in light of her prior history. The cardiac enzymes are mildly abnormal and do not reach levels that are felt to be diagnostic for a myocardial infarction based on World Health Organization criteria. An echocardiogram will be ordered. Treatment of pulmonary status by yourself. Her usual cardiac medications including amiodarone, Crestor, and statins will be continued for the time being. Further recommendation depending on how she responds to the present dosages of the medication she is being offered. Sean Otero M.D. DR: MAXINE JOB#: [id number] CC:
[2018-01-05] VITALS: BP 126/55
[2018-01-05 04:00] VITALS: BP 115/85
[2018-01-05] MEDS ORDERED: Solu-MEDROL 125mg Inj IV SCH (06:00)
[2018-01-05 07:32] LABS: BASOPHILS % (AUTO) 0.5 % (0.0-2.0); HEMATOCRIT 36.3 % (37.0-47.0); HEMOGLOBIN 11.4 G/DL (12.0-16.0); MEAN CORPUSCULAR VOLUME 85 FL (80-99); MONOCYTES % (AUTO) 7.5 % (1.0-10.0); NEUTROPHILS % (AUTO) 81.1 % (45.0-75.0); PLATELET COUNT 141 K/UL (150-450); RED BLOOD COUNT 4.27 M/UL (4.20-5.40); RED CELL DISTRIBUTION WIDTH 14.7 % (11.6-14.8); WHITE BLOOD COUNT 6.3 K/UL (4.8-10.8)
[2018-01-05 08:00] VITALS: BP 129/71
[2018-01-05 08:44] LABS: ANION GAP 6 mmol/L (5-15); BLOOD UREA NITROGEN 62 mg/dL (7-18); CALCIUM 8.5 MG/DL (8.5-10.1); CARBON DIOXIDE 27 MMOL/L (21-32); CHLORIDE 108 MMOL/L (98-107); CHOLESTEROL 116 MG/DL (< 200); CREATININE 1.6 MG/DL (0.55-1.30); HDL CHOLESTEROL 54 MG/DL (40-60); POTASSIUM 4.2 MMOL/L (3.5-5.1); SODIUM 141 MMOL/L (136-145); TRIGLYCERIDES 98 MG/DL (30-150)
[2018-01-05] MEDS: Carvedilol 6.25mg Tab ORAL SCH ×2 (09:32→17:56)
[2018-01-05] MEDS: Amiodarone 200mg tab ORAL SCH (09:32)
[2018-01-05] MEDS: Heparin 5000 units/ml inj SUBQ SCH ×2 (09:35→20:57)
[2018-01-05] MEDS ORDERED: Morphine Sulfate 2mg/ml Inj IVP PRN (11:15)
--- NOTE | 2018-01-05 11:30 | Diagnostic Imaging Report ---
Indication: Shortness of breath Technique: One view of the chest Comparison: 01/03/2018 Findings: The heart is enlarged. There is a left chest biventricular AICD. Diffuse bilateral interstitial and airspace edema is unchanged Impression: Unchanged, over 2 days, findings as above.
[2018-01-05 12:30] VITALS: BP 100/65
--- NOTE | 2018-01-05 12:55 | Pulmonology Progress Note ---
Assessment/Plan Problems: (1) Acute respiratory failure (2) CHF exacerbation (3) Renal insufficiency (4) Influenza B (5) COPD exacerbation (6) Elevated troponin I level Assessment/Plan improving taper off BIPAP respiratory treatment continue abx taper off steroids d/w daughter, who wants her mom to b transferred to [facility] Subjective ROS Limited/Unobtainable: Yes Constitutional: Reports: no symptoms HEENT: Repors: no symptoms Respiratory: Reports: no symptoms Allergies: Coded Allergies: MORPHINE (Verified Allergy, Unknown, 01/03/18) Uncoded Allergies: LACTOSE (Allergy, Unknown, 01/03/18) Objective Last 24 Hour Vital Signs Date Time Temp Pulse Resp B/P (MAP) Pulse Ox O2 Delivery O2 Flow Rate FiO2 01/05/18 09:32 67 129/71 01/05/18 08:00 97.7 67 19 129/71 99 Bi-pap 97.7 01/05/18 08:00 63 01/05/18 04:00 97.6 64 22 115/85 100 Bi-pap 25 97.6 01/05/18 03:44 61 21 100 Facial 25 01/05/18 03:37 65 01/05/18 01:47 60 22 100 Facial 25 01/05/18 00:00 25 01/05/18 00:00 63 01/05/18 00:00 98.6 60 22 126/55 99 Bi-pap 25 98.6 01/04/18 23:17 63 23 100 Facial 25 01/04/18 21:00 8.0 40 01/04/18 20:11 59 22 96 Facial 25 01/04/18 20:00 60 01/04/18 20:00 97.7 64 20 134/67 97 Venturi Mask 8.0 40 97.7 01/04/18 18:49 60 98/67 01/04/18 16:00 98.1 60 19 98/67 100 Venturi Mask 8.0 40 98.1 01/04/18 16:00 8.0 40 Intake and Output 01/04/18 01/05/18 19:00 07:00 Intake Total 220 ml 50 ml Output Total 450 ml 500 ml Balance -230 ml -450 ml Intake Oral 220 ml 50 ml Output Urine Total 450 ml 500 ml # Voids 1 # Bowel Movements 3 4 General Appearance: WD/WN HEENT: normocephalic, atraumatic, anicteric Respiratory/Chest: lungs clear Breasts: no masses Cardiovascular: normal peripheral pulses Abdomen: normal bowel sounds, soft, non tender Extremities: no cyanosis Skin: no rash Neurologic/Psychiatric: ophthalmic nurse II-XII grossly normal Lymphatic: no neck adenopathy Microbiology Date/Time Source Procedure Growth Status 01/03/18 18:38 Blood Blood Culture - Preliminary NO GROWTH AFTER 24 HOURS Resulted 01/03/18 18:15 Blood Blood Culture - Preliminary NO GROWTH AFTER 24 HOURS Resulted 01/03/18 16:42 Nasal Nares Influenza Types A,B Antigen (MARI) - Final Complete Laboratory Tests 01/04/18 16:00: Troponin I 0.302H 01/05/18 00:30: Troponin I 0.270H 01/05/18 06:30: White Blood Count 6.3, Red Blood Count 4.27, Hemoglobin 11.4L, Hematocrit 36.3L , Mean Corpuscular Volume 85, Mean Corpuscular Hemoglobin 26.8L, Mean Corpuscular Hemoglobin Concent 31.5L, Red Cell Distribution Width 14.7, Platelet Count 141L, Mean Platelet Volume 7.6, Neutrophils (%) (Auto) 81.1H, Lymphocytes (%) (Auto) 11.0L, Monocytes (%) (Auto) 7.5, Eosinophils (%) (Auto) 0.0, Basophils (%) (Auto) 0.5, Sodium Level 141, Potassium Level 4.2, Chloride Level 108H, Carbon Dioxide Level 27, Anion Gap 6, Blood Urea Nitrogen 62H, Creatinine 1.6H, Estimat Glomerular Filtration Rate , Glucose Level 145H, Calcium Level 8.5, Triglycerides Level 98, Cholesterol Level 116, LDL Cholesterol 44, HDL Cholesterol 54, Cholesterol/HDL Ratio 2.1L, Thyroid Stimulating Hormone (TSH) 0.138L Current Medications Medications (Trade) Dose Ordered Sig/Jordan Route PRN Reason Start Time Stop Time Status Last Admin Dose Admin Acetaminophen (Tylenol) 650 mg Q4H PRN ORAL fever 01/03/18 18:45 02/02/18 18:44 Albuterol/ Ipratropium (Albuterol/ Ipratropium) 3 ml Q4H PRN HHN dyspnea 01/03/18 18:45 01/08/18 18:44 Amiodarone HCl (Cordarone) 100 mg DAILY ORAL 01/04/18 09:00 02/03/18 08:59 01/05/18 09:32 Atorvastatin Calcium (Lipitor) 80 mg BEDTIME ORAL 01/03/18 21:00 02/02/18 20:59 Carvedilol (Coreg) 6.25 mg BID ORAL 01/04/18 09:00 02/03/18 08:59 01/05/18 09:32 Clonidine HCl (Catapres Tab) 0.1 mg Q4H PRN ORAL sbp more than 160 01/03/18 18:45 02/02/18 18:44 Dextrose (Dextrose 50%) STAT PRN IV Hypoglycemia 01/03/18 18:45 02/02/18 18:44 Heparin Sodium (Porcine) (Heparin 5000 units/ml) 5,000 units EVERY 12 HOURS SUBQ 01/03/18 21:00 02/02/18 20:59 01/05/18 09:35 Levofloxacin 50 ml @ 50 mls/hr Q24H IVPB 01/05/18 23:00 01/12/18 22:59 Lorazepam (Ativan 2mg/ml 1ml) 0.5 mg Q4H PRN IV For Anxiety 01/03/18 18:45 01/10/18 18:44 Methylprednisolone Sodium Succinate (Solu-MEDROL) 60 mg DAILY IV 01/06/18 09:00 02/03/18 00:00 Nitroglycerin (Ntg) 0.4 mg Q5M X 3 DOSES PRN SL Prn Chest Pain 01/03/18 18:45 02/02/18 18:44 Ondansetron HCl (Zofran) 4 mg Q6H PRN IVP Nausea & Vomiting 01/03/18 18:45 02/02/18 18:44 Oseltamivir Phosphate (Tamiflu) 30 mg DAILY ORAL 01/05/18 12:00 01/08/18 09:01 Promethazine HCl/ Codeine (Phenergan with Codeine) 5 ml Q6H PRN ORAL cough 01/03/18 18:45 02/02/18 18:44 01/04/18 14:44 Temazepam (Restoril) 15 mg HSPRN PRN ORAL Insomnia 01/03/18 18:45 01/10/18 18:44 JACOBY CADENA Jan 05, 2018 12:55
[2018-01-05] MEDS: Albuterol/Ipratropium 3ml neb HHN SCH ×2 (13:36→20:36)
[2018-01-05 16:00] VITALS: BP 106/59
[2018-01-05 20:00] VITALS: BP 111/56
--- NOTE | 2018-01-05 20:14 | Cardiology Progress Note ---
Assessment/Plan Assessment/Plan 1. Bronchospasms. 2. Chronic heart failure, systolic and diastolic. 3. Possible history of atrial fibrillation, not clear. 4. Coronary disease history. 5. Chronic kidney disease. 6. Diabetes mellitus type 2. 7. Pulmonary hypertension. 8. Abnormal cardiac enzymes of questionable significance in light of renal insufficienc tele noted not as bronchospastic as yet has more crakles to day need more diuretic on steroids now will dc coreg for nwo tle reviewed trop no peak [place] not reach level of mi by WHO criteria Subjective Cardiovascular: Denies: chest pain, irregular heart rate, lightheadedness Respiratory: Denies: cough, shortness of breath Gastrointestinal/Abdominal: Denies: abdominal pain Genitourinary: Denies: burning Objective Last 24 Hour Vital Signs Date Time Temp Pulse Resp B/P (MAP) Pulse Ox O2 Delivery O2 Flow Rate FiO2 01/05/18 20:00 98.1 62 20 111/56 99 Nasal Cannula 4.0 98.1 01/05/18 17:56 63 106/59 01/05/18 16:00 97.9 63 19 106/59 98 Nasal Cannula 4.0 97.9 01/05/18 16:00 61 01/05/18 13:39 56 20 99 Nasal Cannula 5.0 40 01/05/18 13:39 40 01/05/18 13:36 59 20 95 Nasal Cannula 5.0 40 01/05/18 12:30 98.5 60 18 100/65 99 Nasal Cannula 4.0 98.5 01/05/18 12:00 62 01/05/18 12:00 66 01/05/18 09:32 67 129/71 01/05/18 08:00 97.7 67 19 129/71 99 Bi-pap 97.7 01/05/18 08:00 63 01/05/18 04:00 97.6 64 22 115/85 100 Bi-pap 25 97.6 01/05/18 03:44 61 21 100 Facial 25 01/05/18 03:37 65 01/05/18 01:47 60 22 100 Facial 25 01/05/18 00:00 25 01/05/18 00:00 63 01/05/18 00:00 98.6 60 22 126/55 99 Bi-pap 25 98.6 01/04/18 23:17 63 23 100 Facial 25 01/04/18 21:00 8.0 40 General Appearance: no apparent distress, alert Neck: no JVD Cardiovascular: normal rate Respiratory/Chest: crackles/rales, rhonchi - left Abdomen: normal bowel sounds, non tender, soft Extremities: no swelling Intake and Output 01/04/18 01/05/18 19:00 07:00 Intake Total 220 ml 50 ml Output Total 450 ml 500 ml Balance -230 ml -450 ml Intake Oral 220 ml 50 ml Output Urine Total 450 ml 500 ml # Voids 1 # Bowel Movements 3 4 Laboratory Tests Test 01/05/18 00:30 01/05/18 06:30 Troponin I 0.270 ng/mL (0.000-0.056) White Blood Count 6.3 K/UL (4.8-10.8) Red Blood Count 4.27 M/UL (4.20-5.40) Hemoglobin 11.4 G/DL (12.0-16.0) L Hematocrit 36.3 % (37.0-47.0) L Mean Corpuscular Volume 85 FL (80-99) Mean Corpuscular Hemoglobin 26.8 PG (27.0-31.0) L Mean Corpuscular Hemoglobin Concent 31.5 G/DL (32.0-36.0) L Red Cell Distribution Width 14.7 % (11.6-14.8) Platelet Count 141 K/UL (150-450) L Mean Platelet Volume 7.6 FL (6.5-10.1) Neutrophils (%) (Auto) 81.1 % (45.0-75.0) H Lymphocytes (%) (Auto) 11.0 % (20.0-45.0) L Monocytes (%) (Auto) 7.5 % (1.0-10.0) Eosinophils (%) (Auto) 0.0 % (0.0-3.0) Basophils (%) (Auto) 0.5 % (0.0-2.0) Sodium Level 141 MMOL/L (136-145) Potassium Level 4.2 MMOL/L (3.5-5.1) Chloride Level 108 MMOL/L (98-107) H Carbon Dioxide Level 27 MMOL/L (21-32) Anion Gap 6 mmol/L (5-15) Blood Urea Nitrogen 62 mg/dL (7-18) H Creatinine 1.6 MG/DL (0.55-1.30) H Estimat Glomerular Filtration Rate mL/min (>60) Glucose Level 145 MG/DL (74-106) H Calcium Level 8.5 MG/DL (8.5-10.1) Triglycerides Level 98 MG/DL (30-150) Cholesterol Level 116 MG/DL (< 200) LDL Cholesterol 44 mg/dL (<100) HDL Cholesterol 54 MG/DL (40-60) Cholesterol/HDL Ratio 2.1 (3.3-4.4) L Thyroid Stimulating Hormone (TSH) 0.138 uiU/mL (0.358-3.740) Microbiology Date/Time Source Procedure Growth Status 01/03/18 18:38 Blood Blood Culture - Preliminary NO GROWTH AFTER 24 HOURS Resulted 01/03/18 18:15 Blood Blood Culture - Preliminary NO GROWTH AFTER 24 HOURS Resulted 01/03/18 16:42 Nasal Nares Influenza Types A,B Antigen (MARI) - Final Complete ARCENIO PLATT Jan 05, 2018 20:14
[2018-01-05] MEDS: Atorvastatin 80mg tab ORAL SCH (20:56)
--- NOTE | 2018-01-05 21:56 | Consultation ---
Consult Note Consult Note ID DIC # [id number] KEYSHAWN MONTGOMERY M.D. Jan 05, 2018 21:56
[2018-01-05] MEDS: Levofloxacin 250mg/D5W 50ml IVPB SCH (22:32)
--- NOTE | 2018-01-05 23:02 | Consultation ---
History of Present Illness General Date patient seen: Jan 04, 2018 Chief Complaint: Dyspnea/Respdistress Present Illness HPI 82-year-old female, who is a resident of a convalescent facility. the pt pw anxiety and depressed mood per daughter the pt is more confused and has episodes of anxiety/ waxing and waning of consciousness Allergies: Coded Allergies: MORPHINE (Verified Allergy, Unknown, 01/03/18) Uncoded Allergies: LACTOSE (Allergy, Unknown, 01/03/18) Medication History Scheduled Amiodarone Hcl* (Pacerone*), 100 MG ORAL DAILY, (Reported) Aspirin* (Aspirin*), 81 MG ORAL DAILY, (Reported) Atorvastatin Calcium* (Lipitor*), 80 MG ORAL BEDTIME, (Reported) Carvedilol* (Carvedilol*), 6.25 MG ORAL BID, (Reported) Cranberry Fruit Concentrate (Cranberry), 450 MG PO DAILY, (Reported) Docusate Sodium* (Colace*), 100 MG ORAL DAILY, (Reported) Fluticasone/Salmeterol (Advair 250-50 Diskus), 1 PUFF INH BID, (Reported) Furosemide* (Lasix*), 40 MG ORAL BID, (Reported) Heparin Sod (Porcine) (Heparin Sodium*), 5,000 UNITS SUBQ EVERY 12 HOURS, ( Reported) Montelukast Sodium* (Montelukast Sodium*), 10 MG ORAL BEDTIME, (Reported) Multivitamin With Minerals (Multivitamins With Minerals*), 1 TAB ORAL DAILY, ( Reported) Pantoprazole* (Pantoprazole*), 40 MG ORAL DAILY, (Reported) Potassium Chloride* (K-Dur*), 20 MEQ ORAL TWICE A DAY, (Reported) Ranitidine Hcl* (Zantac*), 150 MG ORAL BEDTIME, (Reported) Scheduled PRN Acetaminophen* (Acetaminophen 325MG Tablet*), 650 MG ORAL Q6H PRN for Mild Pain/ Temp > 100.5, (Reported) Ipratropium/Albuterol Sulfate (DuoNeb 0.5-3(2.5)mg/3ml), 3 ML HHN TID PRN for Shortness of Breath, (Reported) Nitroglycerin (Nitrostat), 0.4 MG SL for chest pain, (Reported) Ondansetron (Zofran), 4 MG ORAL Q6H PRN for Nausea & Vomiting, (Reported) Oxycodone Hcl* (Oxycodone Hcl*), 5 MG ORAL Q6H PRN for For Pain, (Reported) Simethicone* (Simethicone*), 80 MG ORAL Q6HR PRN for GAS PAIN, (Reported) Patient History Limited by: medical condition History Provided By: Patient, Significant Other, PMD Healthcare decision maker ASHLEY MADERA Resuscitation status Full Code Advanced Directive on File Yes Past Medical/Surgical History Past Medical/Surgical History: (1) Acute coronary syndrome (2) Hyperkalemia, diminished renal excretion (3) Renal insufficiency (4) Influenza B (5) COPD exacerbation (6) CHF exacerbation (7) Elevated troponin I level (8) Elevated troponin (9) Acute respiratory failure Review of Systems Psychiatric: Reports: prior hx, anxiety, depressed feelings, emotional problems Physical Exam General Appearance: no apparent distress, alert, confused Last 24 Hour Vital Signs Date Time Temp Pulse Resp B/P (MAP) Pulse Ox O2 Delivery O2 Flow Rate FiO2 01/05/18 20:45 61 20 99 Nasal Cannula 4.0 36 01/05/18 20:45 40 01/05/18 20:37 Nasal Cannula 4.0 36 01/05/18 20:36 61 20 95 Nasal Cannula 4.0 36 01/05/18 20:00 70 01/05/18 20:00 98.1 61 20 111/56 98 Nasal Cannula 4.0 98.1 01/05/18 17:56 63 106/59 01/05/18 16:00 97.9 63 19 106/59 98 Nasal Cannula 4.0 97.9 01/05/18 16:00 61 01/05/18 13:39 56 20 99 Nasal Cannula 5.0 40 01/05/18 13:39 40 01/05/18 13:36 59 20 95 Nasal Cannula 5.0 40 01/05/18 12:30 98.5 60 18 100/65 99 Nasal Cannula 4.0 98.5 01/05/18 12:00 62 01/05/18 12:00 66 01/05/18 09:32 67 129/71 01/05/18 08:00 97.7 67 19 129/71 99 Bi-pap 97.7 01/05/18 08:00 63 01/05/18 04:00 97.6 64 22 115/85 100 Bi-pap 25 97.6 01/05/18 03:44 61 21 100 Facial 25 01/05/18 03:37 65 01/05/18 01:47 60 22 100 Facial 25 01/05/18 00:00 25 01/05/18 00:00 63 01/05/18 00:00 98.6 60 22 126/55 99 Bi-pap 25 98.6 01/04/18 23:17 63 23 100 Facial 25 Intake and Output 01/04/18 01/05/18 19:00 07:00 Intake Total 220 ml 50 ml Output Total 450 ml 500 ml Balance -230 ml -450 ml Intake Oral 220 ml 50 ml Output Urine Total 450 ml 500 ml # Voids 1 # Bowel Movements 3 4 Laboratory Tests Test 01/05/18 00:30 01/05/18 06:30 Troponin I 0.270 ng/mL (0.000-0.056) White Blood Count 6.3 K/UL (4.8-10.8) Red Blood Count 4.27 M/UL (4.20-5.40) Hemoglobin 11.4 G/DL (12.0-16.0) L Hematocrit 36.3 % (37.0-47.0) L Mean Corpuscular Volume 85 FL (80-99) Mean Corpuscular Hemoglobin 26.8 PG (27.0-31.0) L Mean Corpuscular Hemoglobin Concent 31.5 G/DL (32.0-36.0) L Red Cell Distribution Width 14.7 % (11.6-14.8) Platelet Count 141 K/UL (150-450) L Mean Platelet Volume 7.6 FL (6.5-10.1) Neutrophils (%) (Auto) 81.1 % (45.0-75.0) H Lymphocytes (%) (Auto) 11.0 % (20.0-45.0) L Monocytes (%) (Auto) 7.5 % (1.0-10.0) Eosinophils (%) (Auto) 0.0 % (0.0-3.0) Basophils (%) (Auto) 0.5 % (0.0-2.0) Sodium Level 141 MMOL/L (136-145) Potassium Level 4.2 MMOL/L (3.5-5.1) Chloride Level 108 MMOL/L (98-107) H Carbon Dioxide Level 27 MMOL/L (21-32) Anion Gap 6 mmol/L (5-15) Blood Urea Nitrogen 62 mg/dL (7-18) H Creatinine 1.6 MG/DL (0.55-1.30) H Estimat Glomerular Filtration Rate mL/min (>60) Glucose Level 145 MG/DL (74-106) H Calcium Level 8.5 MG/DL (8.5-10.1) Triglycerides Level 98 MG/DL (30-150) Cholesterol Level 116 MG/DL (< 200) LDL Cholesterol 44 mg/dL (<100) HDL Cholesterol 54 MG/DL (40-60) Cholesterol/HDL Ratio 2.1 (3.3-4.4) L Thyroid Stimulating Hormone (TSH) 0.138 uiU/mL (0.358-3.740) Height (Feet): 5 Height (Inches): 2.00 Weight (Pounds): 187 Medications Current Medications Medications (Trade) Dose Ordered Sig/Jordan Route PRN Reason Start Time Stop Time Status Last Admin Dose Admin Acetaminophen (Tylenol) 650 mg Q4H PRN ORAL fever 01/03/18 18:45 02/02/18 18:44 Albuterol/ Ipratropium (Albuterol/ Ipratropium) 3 ml Q6HRT HHN 01/05/18 13:00 01/10/18 12:59 01/05/18 20:36 Amiodarone HCl (Cordarone) 100 mg DAILY ORAL 01/04/18 09:00 02/03/18 08:59 01/05/18 09:32 Atorvastatin Calcium (Lipitor) 80 mg BEDTIME ORAL 01/03/18 21:00 02/02/18 20:59 01/05/18 20:56 Clonidine HCl (Catapres Tab) 0.1 mg Q4H PRN ORAL sbp more than 160 01/03/18 18:45 02/02/18 18:44 Dextrose (Dextrose 50%) STAT PRN IV Hypoglycemia 01/03/18 18:45 02/02/18 18:44 Heparin Sodium (Porcine) (Heparin 5000 units/ml) 5,000 units EVERY 12 HOURS SUBQ 01/03/18 21:00 02/02/18 20:59 01/05/18 20:57 Levofloxacin 50 ml @ 50 mls/hr Q24H IVPB 01/05/18 23:00 01/12/18 22:59 01/05/18 22:32 Lorazepam (Ativan 2mg/ml 1ml) 0.5 mg Q4H PRN IV For Anxiety 01/03/18 18:45 01/10/18 18:44 Methylprednisolone Sodium Succinate (Solu-MEDROL) 60 mg DAILY IV 01/06/18 09:00 02/03/18 00:00 Nitroglycerin (Ntg) 0.4 mg Q5M X 3 DOSES PRN SL Prn Chest Pain 01/03/18 18:45 02/02/18 18:44 Ondansetron HCl (Zofran) 4 mg Q6H PRN IVP Nausea & Vomiting 01/03/18 18:45 02/02/18 18:44 Oseltamivir Phosphate (Tamiflu) 30 mg DAILY ORAL 01/05/18 12:00 01/08/18 09:01 01/05/18 13:54 Promethazine HCl/ Codeine (Phenergan with Codeine) 5 ml Q6H PRN ORAL cough 01/03/18 18:45 02/02/18 18:44 01/04/18 14:44 Temazepam (Restoril) 15 mg HSPRN PRN ORAL Insomnia 01/03/18 18:45 01/10/18 18:44 Assessment/Plan Status: stable Assessment/Plan encephalopathy anxiety ativan prn Glory Valle M.D. Jan 05, 2018 23:02
--- NOTE | 2018-01-05 23:03 | General Progress Note ---
Assessment/Plan Status: stable Assessment/Plan encephalopathy anxiety ativan prn Subjective Date patient seen: Jan 05, 2018 Neurologic/Psychiatric: Reports: anxiety, depressed, emotional problems Allergies: Coded Allergies: MORPHINE (Verified Allergy, Unknown, 01/03/18) Uncoded Allergies: LACTOSE (Allergy, Unknown, 01/03/18) Objective Last 24 Hour Vital Signs Date Time Temp Pulse Resp B/P (MAP) Pulse Ox O2 Delivery O2 Flow Rate FiO2 01/05/18 20:45 61 20 99 Nasal Cannula 4.0 36 01/05/18 20:45 40 01/05/18 20:37 Nasal Cannula 4.0 36 01/05/18 20:36 61 20 95 Nasal Cannula 4.0 36 01/05/18 20:00 70 01/05/18 20:00 98.1 61 20 111/56 98 Nasal Cannula 4.0 98.1 01/05/18 17:56 63 106/59 01/05/18 16:00 97.9 63 19 106/59 98 Nasal Cannula 4.0 97.9 01/05/18 16:00 61 01/05/18 13:39 56 20 99 Nasal Cannula 5.0 40 01/05/18 13:39 40 01/05/18 13:36 59 20 95 Nasal Cannula 5.0 40 01/05/18 12:30 98.5 60 18 100/65 99 Nasal Cannula 4.0 98.5 01/05/18 12:00 62 01/05/18 12:00 66 01/05/18 09:32 67 129/71 01/05/18 08:00 97.7 67 19 129/71 99 Bi-pap 97.7 01/05/18 08:00 63 01/05/18 04:00 97.6 64 22 115/85 100 Bi-pap 25 97.6 01/05/18 03:44 61 21 100 Facial 25 01/05/18 03:37 65 01/05/18 01:47 60 22 100 Facial 25 01/05/18 00:00 25 01/05/18 00:00 63 01/05/18 00:00 98.6 60 22 126/55 99 Bi-pap 25 98.6 01/04/18 23:17 63 23 100 Facial 25 Intake and Output 01/04/18 01/05/18 19:00 07:00 Intake Total 220 ml 50 ml Output Total 450 ml 500 ml Balance -230 ml -450 ml Intake Oral 220 ml 50 ml Output Urine Total 450 ml 500 ml # Voids 1 # Bowel Movements 3 4 Laboratory Tests 01/05/18 00:30: Troponin I 0.270H 01/05/18 06:30: White Blood Count 6.3, Red Blood Count 4.27, Hemoglobin 11.4L, Hematocrit 36.3L , Mean Corpuscular Volume 85, Mean Corpuscular Hemoglobin 26.8L, Mean Corpuscular Hemoglobin Concent 31.5L, Red Cell Distribution Width 14.7, Platelet Count 141L, Mean Platelet Volume 7.6, Neutrophils (%) (Auto) 81.1H, Lymphocytes (%) (Auto) 11.0L, Monocytes (%) (Auto) 7.5, Eosinophils (%) (Auto) 0.0, Basophils (%) (Auto) 0.5, Sodium Level 141, Potassium Level 4.2, Chloride Level 108H, Carbon Dioxide Level 27, Anion Gap 6, Blood Urea Nitrogen 62H, Creatinine 1.6H, Estimat Glomerular Filtration Rate , Glucose Level 145H, Calcium Level 8.5, Triglycerides Level 98, Cholesterol Level 116, LDL Cholesterol 44, HDL Cholesterol 54, Cholesterol/HDL Ratio 2.1L, Thyroid Stimulating Hormone (TSH) 0.138L Height (Feet): 5 Height (Inches): 2.00 Weight (Pounds): 187 General Appearance: no apparent distress, alert, confused Glory Valle M.D. Jan 05, 2018 23:03
[2018-01-06] VITALS (7 sets, daily range): BP systolic 99–131; BP diastolic 52–89
[2018-01-06] MEDS: Albuterol/Ipratropium 3ml neb HHN SCH ×4 (01:00→19:31)
--- NOTE | 2018-01-06 07:58 | Pulmonology Progress Note ---
Assessment/Plan Problems: (1) Acute respiratory failure (2) CHF exacerbation (3) Renal insufficiency (4) Influenza B (5) COPD exacerbation (6) Elevated troponin I level Assessment/Plan improving taper off BIPAP, tolerating 4 liter NC now respiratory treatment continue abx, as per Id taper off steroids down to 40 mg qd chest pt incentive spirometry Subjective ROS Limited/Unobtainable: No Constitutional: Reports: no symptoms HEENT: Repors: no symptoms Respiratory: Reports: no symptoms Allergies: Coded Allergies: MORPHINE (Verified Allergy, Unknown, 01/03/18) Uncoded Allergies: LACTOSE (Allergy, Unknown, 01/03/18) Objective Last 24 Hour Vital Signs Date Time Temp Pulse Resp B/P (MAP) Pulse Ox O2 Delivery O2 Flow Rate FiO2 01/06/18 07:11 66 22 99 Nasal Cannula 4.0 36 01/06/18 07:00 62 23 99 Nasal Cannula 4.0 36 01/06/18 06:59 99 Nasal Cannula 4.0 36 01/06/18 06:59 Nasal Cannula 4.0 36 01/06/18 04:00 98.2 61 24 115/52 100 Nasal Cannula 4.0 98.2 01/06/18 04:00 60 01/06/18 02:04 Nasal Cannula 4.0 36 01/06/18 02:04 Nasal Cannula 4.0 36 01/06/18 00:00 97.7 61 20 117/55 100 Nasal Cannula 4.0 97.7 01/05/18 20:45 61 20 99 Nasal Cannula 4.0 36 01/05/18 20:45 40 01/05/18 20:37 Nasal Cannula 4.0 36 01/05/18 20:36 61 20 95 Nasal Cannula 4.0 36 01/05/18 20:00 70 01/05/18 20:00 98.1 61 20 111/56 98 Nasal Cannula 4.0 98.1 01/05/18 17:56 63 106/59 01/05/18 16:00 97.9 63 19 106/59 98 Nasal Cannula 4.0 97.9 01/05/18 16:00 61 01/05/18 13:39 56 20 99 Nasal Cannula 5.0 40 01/05/18 13:39 40 01/05/18 13:36 59 20 95 Nasal Cannula 5.0 40 01/05/18 12:30 98.5 60 18 100/65 99 Nasal Cannula 4.0 98.5 01/05/18 12:00 62 01/05/18 12:00 66 01/05/18 09:32 67 129/71 01/05/18 08:00 97.7 67 19 129/71 99 Bi-pap 97.7 01/05/18 08:00 63 Intake and Output 01/05/18 01/06/18 19:00 07:00 Intake Total 240 ml 50 ml Output Total 200 ml 350 ml Balance 40 ml -300 ml Intake Oral 240 ml IV Total 50 ml Output Urine Total 200 ml 350 ml # Bowel Movements 2 2 General Appearance: WD/WN HEENT: normocephalic, atraumatic Respiratory/Chest: chest wall non-tender, lungs clear Breasts: no masses Cardiovascular: normal peripheral pulses Abdomen: normal bowel sounds, soft, non tender Genitourinary: normal external genitalia Extremities: no cyanosis Skin: no lesions Microbiology Date/Time Source Procedure Growth Status 01/03/18 18:38 Blood Blood Culture - Preliminary NO GROWTH AFTER 24 HOURS Resulted 01/03/18 18:15 Blood Blood Culture - Preliminary NO GROWTH AFTER 24 HOURS Resulted 01/03/18 16:42 Nasal Nares Influenza Types A,B Antigen (MARI) - Final Complete 01/03/18 20:55 Rectum VRE Culture - Final Enterococcus Faecium - Vre Complete Current Medications Medications (Trade) Dose Ordered Sig/Jordan Route PRN Reason Start Time Stop Time Status Last Admin Dose Admin Acetaminophen (Tylenol) 650 mg Q4H PRN ORAL fever 01/03/18 18:45 02/02/18 18:44 Albuterol/ Ipratropium (Albuterol/ Ipratropium) 3 ml Q6HRT HHN 01/05/18 13:00 01/10/18 12:59 01/06/18 07:07 Amiodarone HCl (Cordarone) 100 mg DAILY ORAL 01/04/18 09:00 02/03/18 08:59 01/05/18 09:32 Atorvastatin Calcium (Lipitor) 80 mg BEDTIME ORAL 01/03/18 21:00 02/02/18 20:59 01/05/18 20:56 Clonidine HCl (Catapres Tab) 0.1 mg Q4H PRN ORAL sbp more than 160 01/03/18 18:45 02/02/18 18:44 Dextrose (Dextrose 50%) STAT PRN IV Hypoglycemia 01/03/18 18:45 02/02/18 18:44 Heparin Sodium (Porcine) (Heparin 5000 units/ml) 5,000 units EVERY 12 HOURS SUBQ 01/03/18 21:00 02/02/18 20:59 01/05/18 20:57 Levofloxacin 50 ml @ 50 mls/hr Q24H IVPB 01/05/18 23:00 01/12/18 22:59 01/05/18 22:32 Lorazepam (Ativan 2mg/ml 1ml) 0.5 mg Q4H PRN IV For Anxiety 01/03/18 18:45 01/10/18 18:44 Methylprednisolone Sodium Succinate (Solu-MEDROL) 60 mg DAILY IV 01/06/18 09:00 02/03/18 00:00 Nitroglycerin (Ntg) 0.4 mg Q5M X 3 DOSES PRN SL Prn Chest Pain 01/03/18 18:45 02/02/18 18:44 Ondansetron HCl (Zofran) 4 mg Q6H PRN IVP Nausea & Vomiting 01/03/18 18:45 02/02/18 18:44 Oseltamivir Phosphate (Tamiflu) 30 mg DAILY ORAL 01/05/18 12:00 01/08/18 09:01 01/05/18 13:54 Promethazine HCl/ Codeine (Phenergan with Codeine) 5 ml Q6H PRN ORAL cough 01/03/18 18:45 02/02/18 18:44 01/04/18 14:44 Temazepam (Restoril) 15 mg HSPRN PRN ORAL Insomnia 01/03/18 18:45 01/10/18 18:44 JACOBY CADENA Jan 06, 2018 07:58
[2018-01-06] MEDS ORDERED: Solu-MEDROL 40mg Inj IVP SCH (09:00)
[2018-01-06] MEDS ORDERED: Solu-MEDROL 125mg Inj IV SCH (09:00)
[2018-01-06] MEDS ORDERED: Albuterol/Ipratropium 3ml neb HHN PRN (09:30)
[2018-01-06] MEDS: Amiodarone 200mg tab ORAL SCH (10:00)
[2018-01-06] MEDS: Heparin 5000 units/ml inj SUBQ SCH ×2 (10:03→21:04)
--- NOTE | 2018-01-06 10:47 | Infectious Diseases Prog Note ---
Assessment/Plan Assessment/Plan A: influenza B infection COPD Exacerb / Bronchitis CHF exacerbation elevated troponin ROSA vs CKD HTN pacemaker PAF anemia dysphagia elevated LFT, probably liver congestion P: cont pt on Levaquin and Tamiflu d# 1 / 5 IV steroids Monitor CBC Monitor BMP Monitor Cultures droplet isolation cardio eval Monitor C- Xray Subjective Allergies: Coded Allergies: MORPHINE (Verified Allergy, Unknown, 01/03/18) Uncoded Allergies: LACTOSE (Allergy, Unknown, 01/03/18) Subjective SOB Objective Vital Signs Last 24 Hour Vital Signs Date Time Temp Pulse Resp B/P (MAP) Pulse Ox O2 Delivery O2 Flow Rate FiO2 01/06/18 10:15 62 23 98 Nasal Cannula 3.0 32 01/06/18 10:05 58 24 100 Nasal Cannula 4.0 36 01/06/18 08:00 98.0 101 20 99/61 100 Nasal Cannula 4.0 98.0 01/06/18 07:39 62 01/06/18 07:11 66 22 99 Nasal Cannula 4.0 36 01/06/18 07:00 62 23 99 Nasal Cannula 4.0 36 01/06/18 06:59 99 Nasal Cannula 4.0 36 01/06/18 06:59 Nasal Cannula 4.0 36 01/06/18 04:00 98.2 61 24 115/52 100 Nasal Cannula 4.0 98.2 01/06/18 04:00 60 01/06/18 02:04 Nasal Cannula 4.0 36 01/06/18 02:04 Nasal Cannula 4.0 36 01/06/18 00:00 97.7 61 20 117/55 100 Nasal Cannula 4.0 97.7 01/05/18 20:45 61 20 99 Nasal Cannula 4.0 36 01/05/18 20:45 40 01/05/18 20:37 Nasal Cannula 4.0 36 01/05/18 20:36 61 20 95 Nasal Cannula 4.0 36 01/05/18 20:00 70 01/05/18 20:00 98.1 61 20 111/56 98 Nasal Cannula 4.0 98.1 01/05/18 17:56 63 106/59 01/05/18 16:00 97.9 63 19 106/59 98 Nasal Cannula 4.0 97.9 01/05/18 16:00 61 01/05/18 13:39 56 20 99 Nasal Cannula 5.0 40 01/05/18 13:39 40 01/05/18 13:36 59 20 95 Nasal Cannula 5.0 40 01/05/18 12:30 98.5 60 18 100/65 99 Nasal Cannula 4.0 98.5 01/05/18 12:00 62 01/05/18 12:00 66 Height (Feet): 5 Height (Inches): 2.00 Weight (Pounds): 187 HEENT: atraumatic Respiratory/Chest: no accessory muscle use Cardiovascular: no gallop/murmur Abdomen: soft, non tender Microbiology Date/Time Source Procedure Growth Status 01/03/18 18:38 Blood Blood Culture - Preliminary NO GROWTH AFTER 24 HOURS Resulted 01/03/18 18:15 Blood Blood Culture - Preliminary NO GROWTH AFTER 24 HOURS Resulted 01/03/18 20:55 Nasal Nares MRSA Culture - Final NO METHICILLIN RESISTANT STAPH AUREUS... Complete 01/03/18 16:42 Nasal Nares Influenza Types A,B Antigen (MARI) - Final Complete 01/03/18 20:55 Rectum VRE Culture - Final Enterococcus Faecium - Vre Complete Current Medications Medications (Trade) Dose Ordered Sig/Jordan Route PRN Reason Start Time Stop Time Status Last Admin Dose Admin Acetaminophen (Tylenol) 650 mg Q4H PRN ORAL fever 01/03/18 18:45 02/02/18 18:44 Albuterol/ Ipratropium (Albuterol/ Ipratropium) 3 ml Q4H PRN HHN Shortness of Breath 01/06/18 09:30 01/11/18 09:29 01/06/18 10:07 Albuterol/ Ipratropium (Albuterol/ Ipratropium) 3 ml Q6HRT HHN 01/05/18 13:00 01/10/18 12:59 01/06/18 07:07 Amiodarone HCl (Cordarone) 100 mg DAILY ORAL 01/04/18 09:00 02/03/18 08:59 01/06/18 10:00 Atorvastatin Calcium (Lipitor) 80 mg BEDTIME ORAL 01/03/18 21:00 02/02/18 20:59 01/05/18 20:56 Clonidine HCl (Catapres Tab) 0.1 mg Q4H PRN ORAL sbp more than 160 01/03/18 18:45 02/02/18 18:44 Dextrose (Dextrose 50%) STAT PRN IV Hypoglycemia 01/03/18 18:45 02/02/18 18:44 Heparin Sodium (Porcine) (Heparin 5000 units/ml) 5,000 units EVERY 12 HOURS SUBQ 01/03/18 21:00 02/02/18 20:59 01/06/18 10:03 Levofloxacin 50 ml @ 50 mls/hr Q24H IVPB 01/05/18 23:00 01/12/18 22:59 01/05/18 22:32 Lorazepam (Ativan 2mg/ml 1ml) 0.5 mg Q4H PRN IV For Anxiety 01/03/18 18:45 01/10/18 18:44 Methylprednisolone Sodium Succinate (Solu-MEDROL) 40 mg DAILY IVP 01/06/18 09:00 02/05/18 08:59 01/06/18 10:00 Nitroglycerin (Ntg) 0.4 mg Q5M X 3 DOSES PRN SL Prn Chest Pain 01/03/18 18:45 02/02/18 18:44 Ondansetron HCl (Zofran) 4 mg Q6H PRN IVP Nausea & Vomiting 01/03/18 18:45 02/02/18 18:44 Oseltamivir Phosphate (Tamiflu) 30 mg DAILY ORAL 01/05/18 12:00 01/08/18 09:01 01/06/18 10:00 Promethazine HCl/ Codeine (Phenergan with Codeine) 5 ml Q6H PRN ORAL cough 01/03/18 18:45 02/02/18 18:44 01/04/18 14:44 Temazepam (Restoril) 15 mg HSPRN PRN ORAL Insomnia 01/03/18 18:45 01/10/18 18:44 KEYSHAWN MONTGOMERY M.D. Jan 06, 2018 10:47
--- NOTE | 2018-01-06 14:26 | Cardiology Progress Note ---
Assessment/Plan Assessment/Plan 1. Bronchospasms. 2. Chronic heart failure, systolic and diastolic. 3. Possible history of atrial fibrillation, not clear. 4. Coronary disease history. 5. Chronic kidney disease. 6. Diabetes mellitus type 2. 7. Pulmonary hypertension. 8. Abnormal cardiac enzymes of questionable significance in light of renal insufficienc tele noted has more wheezes today need more diuretic on steroids now will dc coreg for nwo tele reviewed v or av pacing trop no peak [place] not reach level of mi by WHO criteria has had spem epigastric pain and tenderness will repeat troop and amylase and lipase Subjective Respiratory: Reports: cough, shortness of breath Gastrointestinal/Abdominal: Reports: abdominal pain - epigstric Genitourinary: Denies: burning Objective Last 24 Hour Vital Signs Date Time Temp Pulse Resp B/P (MAP) Pulse Ox O2 Delivery O2 Flow Rate FiO2 01/06/18 13:24 98 Nasal Cannula 3.0 32 01/06/18 13:24 64 20 98 Nasal Cannula 3.0 32 01/06/18 13:10 58 24 98 Nasal Cannula 3.0 32 01/06/18 12:00 97.2 64 17 131/58 97 Nasal Cannula 3.0 97.2 01/06/18 11:51 68 01/06/18 10:15 62 23 98 Nasal Cannula 3.0 32 01/06/18 10:05 58 24 100 Nasal Cannula 4.0 36 01/06/18 08:00 98.0 101 20 99/61 100 Nasal Cannula 4.0 98.0 01/06/18 07:39 62 01/06/18 07:11 66 22 99 Nasal Cannula 4.0 36 01/06/18 07:00 62 23 99 Nasal Cannula 4.0 36 01/06/18 06:59 99 Nasal Cannula 4.0 36 01/06/18 06:59 Nasal Cannula 4.0 36 01/06/18 04:00 98.2 61 24 115/52 100 Nasal Cannula 4.0 98.2 01/06/18 04:00 60 01/06/18 02:04 Nasal Cannula 4.0 36 01/06/18 02:04 Nasal Cannula 4.0 36 01/06/18 00:00 97.7 61 20 117/55 100 Nasal Cannula 4.0 97.7 01/05/18 20:45 61 20 99 Nasal Cannula 4.0 36 01/05/18 20:45 40 01/05/18 20:37 Nasal Cannula 4.0 36 01/05/18 20:36 61 20 95 Nasal Cannula 4.0 36 01/05/18 20:00 70 01/05/18 20:00 98.1 61 20 111/56 98 Nasal Cannula 4.0 98.1 01/05/18 17:56 63 106/59 01/05/18 16:00 97.9 63 19 106/59 98 Nasal Cannula 4.0 97.9 01/05/18 16:00 61 General Appearance: alert Neck: supple Cardiovascular: normal rate Respiratory/Chest: expiratory wheezing, inspiratory wheezing Abdomen: normal bowel sounds, non tender, soft Extremities: no swelling Intake and Output 01/05/18 01/06/18 19:00 07:00 Intake Total 240 ml 50 ml Output Total 200 ml 350 ml Balance 40 ml -300 ml Intake Oral 240 ml IV Total 50 ml Output Urine Total 200 ml 350 ml # Bowel Movements 2 2 Microbiology Date/Time Source Procedure Growth Status 01/03/18 18:38 Blood Blood Culture - Preliminary NO GROWTH AFTER 24 HOURS Resulted 01/03/18 18:15 Blood Blood Culture - Preliminary NO GROWTH AFTER 24 HOURS Resulted 01/03/18 20:55 Nasal Nares MRSA Culture - Final NO METHICILLIN RESISTANT STAPH AUREUS... Complete 01/03/18 16:42 Nasal Nares Influenza Types A,B Antigen (MARI) - Final Complete 01/03/18 20:55 Rectum VRE Culture - Final Enterococcus Faecium - Vre Complete ARCENIO PLATT Jan 06, 2018 14:26
--- NOTE | 2018-01-06 17:00 | Consultation ---
DATE OF CONSULTATION: 01/05/2018 INFECTIOUS DISEASES CONSULTATION CONSULTING PHYSICIAN: Mikey Paula M.D. REQUESTING PHYSICIAN: Dayo Gracia M.D. REASON FOR CONSULTATION: Evaluation of the patient for influenza, pneumonia, antibiotic management. HISTORY OF PRESENT ILLNESS: The patient is an 82-year-old female with multiple medical problems, who came to this hospital with chief complaint of shortness of breath. The patient was found to have influenza. The patient has been started on antibiotic treatment. Infectious diseases consultation has been requested for further evaluation of the patient and antibiotic management. PAST MEDICAL HISTORY: 1. CHF. 2. CAD. 3. Status post pacemaker placement. 4. Hypertension. 5. COPD. 6. Anemia. MEDICATIONS: The patient is on Solu-Medrol, Levaquin, and Tamiflu. ALLERGIES: and morphine. FAMILY HISTORY: Not contributory. REVIEW OF SYSTEMS: HEENT: No recent change in vision or hearing. PULMONARY: As mentioned above. The patient has cough, wheezing, sputum production. CARDIOVASCULAR: No chest pain or palpitation. GASTROINTESTINAL/ABDOMEN: No nausea or vomiting. GENITOURINARY: No dysuria. MUSCULOSKELETAL: No pain in extremity. PHYSICAL EXAMINATION: VITAL SIGNS: Temperature 98 degrees, blood pressure respiratory rate 18, and pulse 62. HEENT: No pale conjunctivae. No icterus. NECK: No lymphadenopathy. CHEST: Bilateral wheezes. HEART: S1 and S2. ABDOMEN: Soft, obese, and nontender. EXTREMITIES: No cyanosis at this time. NEUROLOGIC: Awake and alert. LABORATORY DATA: White blood cells 6, hemoglobin 11, and platelet 141. UA unremarkable. BUN 62 and creatinine 1.6. AST 65, ALT 69, and alkaline phosphatase 105. Troponin 0.27. Blood culture is pending. Influenza B positive. ASSESSMENT: The patient is an 82-year-old female with 1. Influenza B. 2. Shortness of breath. 3. Bronchitis. 4. CHF. PLAN: 1. We will continue the patient on Tamiflu and Levaquin day #11/07. 2. Monitor CBC. 3. Monitor BMP. 4. Monitor cultures (blood, sputum). 5. Monitor chest x-ray. 6. Droplet isolation. 7. Based on the patient's clinical course and labs, we will do further recommendation. Mikey Paula M.D. DR: ANH JOB#: [id number] CC:
[2018-01-06 17:30] LABS: ALANINE AMINOTRANSFERASE 72 U/L (12-78); ALBUMIN/GLOBULIN RATIO 0.8 (1.0-2.7); ALKALINE PHOSPHATASE 101 U/L (46-116); AMYLASE 163 U/L (25-115); ANION GAP 8 mmol/L (5-15); ASPARTATE AMINO TRANSFERASE 63 U/L (15-37); BILIRUBIN,TOTAL 0.1 MG/DL (0.2-1.0); BLOOD UREA NITROGEN 63 mg/dL (7-18); CALCIUM 8.6 MG/DL (8.5-10.1); CARBON DIOXIDE 26 MMOL/L (21-32); CHLORIDE 109 MMOL/L (98-107); CREATININE 1.6 MG/DL (0.55-1.30); SODIUM 144 MMOL/L (136-145)
[2018-01-06 17:31] LABS: POTASSIUM 6.2 MMOL/L (3.5-5.1)
--- NOTE | 2018-01-06 18:21 | General Progress Note ---
Assessment/Plan Status: stable Assessment/Plan encephalopathy anxiety ativan prn d/w daughter Subjective Date patient seen: Jan 06, 2018 Neurologic/Psychiatric: Reports: anxiety, depressed Allergies: Coded Allergies: MORPHINE (Verified Allergy, Unknown, 01/03/18) Uncoded Allergies: LACTOSE (Allergy, Unknown, 01/03/18) Objective Last 24 Hour Vital Signs Date Time Temp Pulse Resp B/P (MAP) Pulse Ox O2 Delivery O2 Flow Rate FiO2 01/06/18 15:51 72 01/06/18 15:31 97.0 69 20 128/53 97 Nasal Cannula 3.0 97.0 01/06/18 13:24 98 Nasal Cannula 3.0 32 01/06/18 13:24 64 20 98 Nasal Cannula 3.0 32 01/06/18 13:10 58 24 98 Nasal Cannula 3.0 32 01/06/18 12:00 97.2 64 17 131/58 97 Nasal Cannula 3.0 97.2 01/06/18 11:51 68 01/06/18 10:15 62 23 98 Nasal Cannula 3.0 32 01/06/18 10:05 58 24 100 Nasal Cannula 4.0 36 01/06/18 08:00 98.0 101 20 99/61 100 Nasal Cannula 4.0 98.0 01/06/18 07:39 62 01/06/18 07:11 66 22 99 Nasal Cannula 4.0 36 01/06/18 07:00 62 23 99 Nasal Cannula 4.0 36 01/06/18 06:59 99 Nasal Cannula 4.0 36 01/06/18 06:59 Nasal Cannula 4.0 36 01/06/18 04:00 98.2 61 24 115/52 100 Nasal Cannula 4.0 98.2 01/06/18 04:00 60 01/06/18 02:04 Nasal Cannula 4.0 36 01/06/18 02:04 Nasal Cannula 4.0 36 01/06/18 00:00 97.7 61 20 117/55 100 Nasal Cannula 4.0 97.7 01/05/18 20:45 61 20 99 Nasal Cannula 4.0 36 01/05/18 20:45 40 01/05/18 20:37 Nasal Cannula 4.0 36 01/05/18 20:36 61 20 95 Nasal Cannula 4.0 36 01/05/18 20:00 70 01/05/18 20:00 98.1 61 20 111/56 98 Nasal Cannula 4.0 98.1 Intake and Output 01/05/18 01/06/18 19:00 07:00 Intake Total 240 ml 50 ml Output Total 200 ml 350 ml Balance 40 ml -300 ml Intake Oral 240 ml IV Total 50 ml Output Urine Total 200 ml 350 ml # Bowel Movements 2 2 Laboratory Tests 01/06/18 16:40: Sodium Level 144, Potassium Level 6.2*H, Chloride Level 109H, Carbon Dioxide Level 26, Anion Gap 8, Blood Urea Nitrogen 63H, Creatinine 1.6H, Estimat Glomerular Filtration Rate , Glucose Level 119H, Calcium Level 8.6, Total Bilirubin 0.1L, Aspartate Amino Transf (AST/SGOT) 63H, Alanine Aminotransferase (ALT/SGPT) 72, Alkaline Phosphatase 101, Troponin I 0.307H, Total Protein 6.8, Albumin 3.0L, Globulin 3.8, Albumin/Globulin Ratio 0.8L, Amylase Level 163H, Lipase 89 01/06/18 18:15: Sodium Level [Pending], Potassium Level [Pending], Chloride Level [Pending], Carbon Dioxide Level [Pending], Blood Urea Nitrogen [Pending], Creatinine [ Pending], Estimat Glomerular Filtration Rate [Pending], Glucose Level [Pending] , Calcium Level [Pending], Total Bilirubin [Pending], Aspartate Amino Transf ( AST/SGOT) [Pending], Alanine Aminotransferase (ALT/SGPT) [Pending], Alkaline Phosphatase [Pending], Total Protein [Pending], Albumin [Pending], Globulin [ Pending] Height (Feet): 5 Height (Inches): 2.00 Weight (Pounds): 187 General Appearance: no apparent distress, alert, confused Glory Valle M.D. Jan 06, 2018 18:21
[2018-01-06 18:34] LABS: ANION GAP 8 mmol/L (5-15); BLOOD UREA NITROGEN 55 mg/dL (7-18); CALCIUM 8.8 MG/DL (8.5-10.1); CARBON DIOXIDE 28 MMOL/L (21-32); CHLORIDE 110 MMOL/L (98-107); CREATININE 1.6 MG/DL (0.55-1.30); POTASSIUM 3.6 MMOL/L (3.5-5.1); SODIUM 146 MMOL/L (136-145)
[2018-01-06 18:38] LABS: ALANINE AMINOTRANSFERASE 53 U/L (12-78); ALBUMIN 2.8 G/DL (3.4-5.0); ALBUMIN/GLOBULIN RATIO 0.6 (1.0-2.7); ALKALINE PHOSPHATASE 87 U/L (46-116); ASPARTATE AMINO TRANSFERASE 42 U/L (15-37); BILIRUBIN,TOTAL 0.3 MG/DL (0.2-1.0)
[2018-01-06] MEDS: Atorvastatin 80mg tab ORAL SCH (21:02)
[2018-01-06] MEDS: Levofloxacin 250mg/D5W 50ml IVPB SCH (22:36)
[2018-01-07] MEDS: Albuterol/Ipratropium 3ml neb HHN SCH ×4 (01:32→18:59)
[2018-01-07 04:00] VITALS: BP 128/52
[2018-01-07 06:59] LABS: HEMATOCRIT 32.7 % (37.0-47.0); HEMOGLOBIN 10.5 G/DL (12.0-16.0); MEAN CORPUSCULAR VOLUME 85 FL (80-99); PLATELET COUNT 144 K/UL (150-450); RED BLOOD COUNT 3.83 M/UL (4.20-5.40); RED CELL DISTRIBUTION WIDTH 14.9 % (11.6-14.8); WHITE BLOOD COUNT 3.4 K/UL (4.8-10.8)
[2018-01-07 07:28] LABS: ALANINE AMINOTRANSFERASE 48 U/L (12-78); ALBUMIN 2.5 G/DL (3.4-5.0); ALBUMIN/GLOBULIN RATIO 0.6 (1.0-2.7); ALKALINE PHOSPHATASE 77 U/L (46-116); ANION GAP 6 mmol/L (5-15); ASPARTATE AMINO TRANSFERASE 35 U/L (15-37); BILIRUBIN,TOTAL 0.3 MG/DL (0.2-1.0); BLOOD UREA NITROGEN 50 mg/dL (7-18); CALCIUM 8.6 MG/DL (8.5-10.1); CARBON DIOXIDE 30 MMOL/L (21-32); CHLORIDE 111 MMOL/L (98-107); CREATININE 1.4 MG/DL (0.55-1.30); POTASSIUM 3.4 MMOL/L (3.5-5.1); SODIUM 147 MMOL/L (136-145)
--- NOTE | 2018-01-07 07:39 | Pulmonology Progress Note ---
Assessment/Plan Problems: (1) Acute respiratory failure (2) CHF exacerbation (3) Renal insufficiency (4) Influenza B (5) COPD exacerbation (6) Elevated troponin I level Assessment/Plan improving taper off BIPAP, tolerating 4 liter NC now respiratory treatment continue abx, as per Id on flomax and steroids taper off steroids down to 20 mg qd chest pt incentive spirometry Subjective ROS Limited/Unobtainable: No Constitutional: Reports: no symptoms HEENT: Repors: no symptoms Respiratory: Reports: no symptoms Allergies: Coded Allergies: MORPHINE (Verified Allergy, Unknown, 01/03/18) Uncoded Allergies: LACTOSE (Allergy, Unknown, 01/03/18) Objective Last 24 Hour Vital Signs Date Time Temp Pulse Resp B/P (MAP) Pulse Ox O2 Delivery O2 Flow Rate FiO2 01/07/18 07:35 65 20 100 Nasal Cannula 3.0 32 01/07/18 07:28 65 20 100 Nasal Cannula 3.0 32 01/07/18 07:28 100 Nasal Cannula 3.0 32 01/07/18 07:28 Nasal Cannula 3.0 32 01/07/18 04:00 96.1 69 19 128/52 99 Nasal Cannula 3.0 96.1 01/07/18 04:00 64 01/07/18 01:29 73 20 100 Nasal Cannula 3.0 32 01/07/18 01:25 87 24 97 Nasal Cannula 3.0 32 01/07/18 00:00 68 01/06/18 23:58 97.5 70 20 110/54 99 Nasal Cannula 3.0 97.5 01/06/18 20:00 69 01/06/18 19:55 97.7 70 20 116/89 100 Nasal Cannula 3.0 97.7 01/06/18 19:08 66 21 100 Nasal Cannula 3.0 32 01/06/18 19:02 70 22 99 Nasal Cannula 3.0 32 01/06/18 19:00 Nasal Cannula 3.0 32 01/06/18 19:00 100 Nasal Cannula 3.0 32 01/06/18 15:51 72 01/06/18 15:31 97.0 69 20 128/53 97 Nasal Cannula 3.0 97.0 01/06/18 13:24 98 Nasal Cannula 3.0 32 01/06/18 13:24 64 20 98 Nasal Cannula 3.0 32 01/06/18 13:10 58 24 98 Nasal Cannula 3.0 32 01/06/18 12:00 97.2 64 17 131/58 97 Nasal Cannula 3.0 97.2 01/06/18 11:51 68 01/06/18 10:15 62 23 98 Nasal Cannula 3.0 32 01/06/18 10:05 58 24 100 Nasal Cannula 4.0 36 01/06/18 08:00 98.0 101 20 99/61 100 Nasal Cannula 4.0 98.0 01/06/18 07:39 62 Intake and Output 01/06/18 01/07/18 19:00 07:00 Intake Total 50 ml Output Total 1 ml 500 ml Balance -1 ml -450 ml IV Total 50 ml Output Urine Total 1 ml 500 ml # Bowel Movements 1 General Appearance: WD/WN, no acute distress HEENT: normocephalic, atraumatic Respiratory/Chest: chest wall non-tender, lungs clear Breasts: no masses Cardiovascular: normal peripheral pulses, normal rate Abdomen: normal bowel sounds, soft, non tender Genitourinary: normal external genitalia Extremities: no cyanosis Skin: no rash 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, no motor/sensory deficits, oriented x 3 Lymphatic: no groin adenopathy Laboratory Tests 01/06/18 16:40: Sodium Level 144, Potassium Level 6.2*H, Chloride Level 109H, Carbon Dioxide Level 26, Anion Gap 8, Blood Urea Nitrogen 63H, Creatinine 1.6H, Estimat Glomerular Filtration Rate , Glucose Level 119H, Calcium Level 8.6, Total Bilirubin 0.1L, Aspartate Amino Transf (AST/SGOT) 63H, Alanine Aminotransferase (ALT/SGPT) 72, Alkaline Phosphatase 101, Troponin I 0.307H, Total Protein 6.8, Albumin 3.0L, Globulin 3.8, Albumin/Globulin Ratio 0.8L, Amylase Level 163H, Lipase 89 01/06/18 18:15: Sodium Level 146H, Potassium Level 3.6, Chloride Level 110H, Carbon Dioxide Level 28, Anion Gap 8, Blood Urea Nitrogen 55H, Creatinine 1.6H, Estimat Glomerular Filtration Rate , Glucose Level 170H, Calcium Level 8.8, Total Bilirubin 0.3, Aspartate Amino Transf (AST/SGOT) 42H, Alanine Aminotransferase ( ALT/SGPT) 53, Alkaline Phosphatase 87, Total Protein 7.2, Albumin 2.8L, Globulin 4.4, Albumin/Globulin Ratio 0.6L 01/07/18 05:30: Sodium Level 147H, Potassium Level 3.4L, Chloride Level 111H, Carbon Dioxide Level 30, Anion Gap 6, Blood Urea Nitrogen 50H, Creatinine 1.4H, Estimat Glomerular Filtration Rate , Glucose Level 128H, Calcium Level 8.6, Total Bilirubin 0.3, Aspartate Amino Transf (AST/SGOT) 35, Alanine Aminotransferase ( ALT/SGPT) 48, Alkaline Phosphatase 77, Total Protein 6.8, Albumin 2.5L, Globulin 4.3, Albumin/Globulin Ratio 0.6L, White Blood Count 3.4L, Red Blood Count 3.83L, Hemoglobin 10.5L, Hematocrit 32.7L, Mean Corpuscular Volume 85, Mean Corpuscular Hemoglobin 27.4, Mean Corpuscular Hemoglobin Concent 32.1, Red Cell Distribution Width 14.9H, Platelet Count 144L, Mean Platelet Volume 8.9, Neutrophils (%) (Auto) , Lymphocytes (%) (Auto) , Monocytes (%) (Auto) , Eosinophils (%) (Auto) , Basophils (%) (Auto) , Neutrophils % (Manual) [Pending] , Lymphocytes % (Manual) [Pending], Platelet Estimate [Pending], Platelet Morphology [Pending], Pro-B-Type Natriuretic Peptide > 93720V Current Medications Medications (Trade) Dose Ordered Sig/Jordan Route PRN Reason Start Time Stop Time Status Last Admin Dose Admin Acetaminophen (Tylenol) 650 mg Q4H PRN ORAL fever 01/03/18 18:45 02/02/18 18:44 01/06/18 21:06 Albuterol/ Ipratropium (Albuterol/ Ipratropium) 3 ml Q4H PRN HHN Shortness of Breath 01/06/18 09:30 01/11/18 09:29 01/06/18 10:07 Albuterol/ Ipratropium (Albuterol/ Ipratropium) 3 ml Q6HRT HHN 01/05/18 13:00 01/10/18 12:59 01/07/18 07:29 Amiodarone HCl (Cordarone) 100 mg DAILY ORAL 01/04/18 09:00 02/03/18 08:59 01/06/18 10:00 Atorvastatin Calcium (Lipitor) 80 mg BEDTIME ORAL 01/03/18 21:00 02/02/18 20:59 01/06/18 21:02 Clonidine HCl (Catapres Tab) 0.1 mg Q4H PRN ORAL sbp more than 160 01/03/18 18:45 02/02/18 18:44 Dextrose (Dextrose 50%) STAT PRN IV Hypoglycemia 01/03/18 18:45 02/02/18 18:44 Heparin Sodium (Porcine) (Heparin 5000 units/ml) 5,000 units EVERY 12 HOURS SUBQ 01/03/18 21:00 02/02/18 20:59 01/06/18 21:04 Levofloxacin 50 ml @ 50 mls/hr Q24H IVPB 01/05/18 23:00 01/12/18 22:59 01/06/18 22:36 Lorazepam (Ativan 2mg/ml 1ml) 0.5 mg Q4H PRN IV For Anxiety 01/03/18 18:45 01/10/18 18:44 Methylprednisolone Sodium Succinate (Solu-MEDROL) 40 mg DAILY IVP 01/06/18 09:00 02/05/18 08:59 01/06/18 10:00 Nitroglycerin (Ntg) 0.4 mg Q5M X 3 DOSES PRN SL Prn Chest Pain 01/03/18 18:45 02/02/18 18:44 Ondansetron HCl (Zofran) 4 mg Q6H PRN IVP Nausea & Vomiting 01/03/18 18:45 02/02/18 18:44 Oseltamivir Phosphate (Tamiflu) 30 mg DAILY ORAL 01/05/18 12:00 01/08/18 09:01 01/06/18 10:00 Promethazine HCl/ Codeine (Phenergan with Codeine) 5 ml Q6H PRN ORAL cough 01/03/18 18:45 02/02/18 18:44 01/04/18 14:44 Temazepam (Restoril) 15 mg HSPRN PRN ORAL Insomnia 01/03/18 18:45 01/10/18 18:44 JACOBY CADENA Jan 07, 2018 07:39
[2018-01-07 08:00] VITALS: BP 126/47
[2018-01-07] MEDS: Amiodarone 200mg tab ORAL SCH (09:19)
[2018-01-07] MEDS: Solu-MEDROL 40mg Inj IVP SCH (09:19)
[2018-01-07] MEDS: Heparin 5000 units/ml inj SUBQ SCH ×2 (09:20→20:19)
--- NOTE | 2018-01-07 11:21 | Diagnostic Imaging Report ---
Indication: Dyspnea Comparison: 01/05/2018 A single view chest radiograph was obtained. Findings: There is evidence of pulmonary vascular congestion and interstitial edema. The heart is enlarged. Findings are probably unchanged. Pacemaker again noted. IMPRESSION: CHF
[2018-01-07 12:00] VITALS: BP 113/62
--- NOTE | 2018-01-07 15:15 | Infectious Diseases Prog Note ---
Assessment/Plan Assessment/Plan A: influenza B infection COPD Exacerb / Bronchitis CHF exacerbation elevated troponin ROSA vs CKD HTN pacemaker PAF anemia dysphagia elevated LFT, probably liver congestion P: cont pt on Levaquin and Tamiflu d# 2 / 5 IV steroids Monitor CBC Monitor BMP Monitor Cultures droplet isolation cardio eval Monitor C- Xray Subjective Constitutional: Denies: no symptoms, fever, chills, fatigue, anorexia, drenching sweats, other Allergies: Coded Allergies: MORPHINE (Verified Allergy, Unknown, 01/03/18) Uncoded Allergies: LACTOSE (Allergy, Unknown, 01/03/18) Objective Vital Signs Last 24 Hour Vital Signs Date Time Temp Pulse Resp B/P (MAP) Pulse Ox O2 Delivery O2 Flow Rate FiO2 01/07/18 14:04 66 20 100 Nasal Cannula 3.0 32 01/07/18 13:57 61 20 100 Nasal Cannula 3.0 32 01/07/18 12:00 97.5 62 20 113/62 99 Nasal Cannula 2.0 97.5 01/07/18 11:36 62 01/07/18 08:00 97.5 64 20 126/47 99 Nasal Cannula 2.0 97.5 01/07/18 07:35 65 20 100 Nasal Cannula 3.0 32 01/07/18 07:32 63 01/07/18 07:28 65 20 100 Nasal Cannula 3.0 32 01/07/18 07:28 100 Nasal Cannula 3.0 32 01/07/18 07:28 Nasal Cannula 3.0 32 01/07/18 04:00 96.1 69 19 128/52 99 Nasal Cannula 3.0 96.1 01/07/18 04:00 64 01/07/18 01:29 73 20 100 Nasal Cannula 3.0 32 01/07/18 01:25 87 24 97 Nasal Cannula 3.0 32 01/07/18 00:00 68 01/06/18 23:58 97.5 70 20 110/54 99 Nasal Cannula 3.0 97.5 01/06/18 20:00 69 01/06/18 19:55 97.7 70 20 116/89 100 Nasal Cannula 3.0 97.7 01/06/18 19:08 66 21 100 Nasal Cannula 3.0 32 01/06/18 19:02 70 22 99 Nasal Cannula 3.0 32 01/06/18 19:00 Nasal Cannula 3.0 32 01/06/18 19:00 100 Nasal Cannula 3.0 32 01/06/18 15:51 72 01/06/18 15:31 97.0 69 20 128/53 97 Nasal Cannula 3.0 97.0 Height (Feet): 5 Height (Inches): 2.00 Weight (Pounds): 190 HEENT: anicteric Cardiovascular: normal rate Abdomen: no organomegaly Laboratory Tests Test 01/06/18 16:40 01/06/18 18:15 01/07/18 05:30 Sodium Level 144 MMOL/L (136-145) 146 MMOL/L (136-145) H 147 MMOL/L (136-145) H Potassium Level 6.2 MMOL/L (3.5-5.1) *H 3.6 MMOL/L (3.5-5.1) 3.4 MMOL/L (3.5-5.1) L Chloride Level 109 MMOL/L (98-107) H 110 MMOL/L (98-107) H 111 MMOL/L (98-107) H Carbon Dioxide Level 26 MMOL/L (21-32) 28 MMOL/L (21-32) 30 MMOL/L (21-32) Anion Gap 8 mmol/L (5-15) 8 mmol/L (5-15) 6 mmol/L (5-15) Blood Urea Nitrogen 63 mg/dL (7-18) H 55 mg/dL (7-18) H 50 mg/dL (7-18) H Creatinine 1.6 MG/DL (0.55-1.30) H 1.6 MG/DL (0.55-1.30) H 1.4 MG/DL (0.55-1.30) H Estimat Glomerular Filtration Rate mL/min (>60) mL/min (>60) mL/min (>60) Glucose Level 119 MG/DL (74-106) H 170 MG/DL (74-106) H 128 MG/DL (74-106) H Calcium Level 8.6 MG/DL (8.5-10.1) 8.8 MG/DL (8.5-10.1) 8.6 MG/DL (8.5-10.1) Total Bilirubin 0.1 MG/DL (0.2-1.0) L 0.3 MG/DL (0.2-1.0) 0.3 MG/DL (0.2-1.0) Aspartate Amino Transf (AST/SGOT) 63 U/L (15-37) H 42 U/L (15-37) H 35 U/L (15-37) Alanine Aminotransferase (ALT/SGPT) 72 U/L (12-78) 53 U/L (12-78) 48 U/L (12-78) Alkaline Phosphatase 101 U/L (46-116) 87 U/L (46-116) 77 U/L (46-116) Troponin I 0.307 ng/mL (0.000-0.056) Total Protein 6.8 G/DL (6.4-8.2) 7.2 G/DL (6.4-8.2) 6.8 G/DL (6.4-8.2) Albumin 3.0 G/DL (3.4-5.0) L 2.8 G/DL (3.4-5.0) L 2.5 G/DL (3.4-5.0) L Globulin 3.8 g/dL 4.4 g/dL 4.3 g/dL Albumin/Globulin Ratio 0.8 (1.0-2.7) L 0.6 (1.0-2.7) L 0.6 (1.0-2.7) L Amylase Level 163 U/L (25-115) H Lipase 89 U/L (73-393) White Blood Count 3.4 K/UL (4.8-10.8) L Red Blood Count 3.83 M/UL (4.20-5.40) L Hemoglobin 10.5 G/DL (12.0-16.0) L Hematocrit 32.7 % (37.0-47.0) L Mean Corpuscular Volume 85 FL (80-99) Mean Corpuscular Hemoglobin 27.4 PG (27.0-31.0) Mean Corpuscular Hemoglobin Concent 32.1 G/DL (32.0-36.0) Red Cell Distribution Width 14.9 % (11.6-14.8) H Platelet Count 144 K/UL (150-450) L Mean Platelet Volume 8.9 FL (6.5-10.1) Neutrophils (%) (Auto) % (45.0-75.0) Lymphocytes (%) (Auto) % (20.0-45.0) Monocytes (%) (Auto) % (1.0-10.0) Eosinophils (%) (Auto) % (0.0-3.0) Basophils (%) (Auto) % (0.0-2.0) Differential Total Cells Counted 100 Neutrophils % (Manual) 58 % (45-75) Lymphocytes % (Manual) 23 % (20-45) Monocytes % (Manual) 19 % (1-10) H Eosinophils % (Manual) 0 % (0-3) Basophils % (Manual) 0 % (0-2) Band Neutrophils 0 % (0-8) Platelet Estimate Decreased L Platelet Morphology Normal Hypochromasia 1+ Anisocytosis 1+ Pro-B-Type Natriuretic Peptide > 05711 pg/mL (0-125) H Current Medications Medications (Trade) Dose Ordered Sig/Jordan Route PRN Reason Start Time Stop Time Status Last Admin Dose Admin Acetaminophen (Tylenol) 650 mg Q4H PRN ORAL fever 01/03/18 18:45 02/02/18 18:44 01/06/18 21:06 Albuterol/ Ipratropium (Albuterol/ Ipratropium) 3 ml Q4H PRN HHN Shortness of Breath 01/06/18 09:30 01/11/18 09:29 01/06/18 10:07 Albuterol/ Ipratropium (Albuterol/ Ipratropium) 3 ml Q6HRT HHN 01/05/18 13:00 01/10/18 12:59 01/07/18 13:57 Amiodarone HCl (Cordarone) 100 mg DAILY ORAL 01/04/18 09:00 02/03/18 08:59 01/07/18 09:19 Atorvastatin Calcium (Lipitor) 80 mg BEDTIME ORAL 01/03/18 21:00 02/02/18 20:59 01/06/18 21:02 Clonidine HCl (Catapres Tab) 0.1 mg Q4H PRN ORAL sbp more than 160 01/03/18 18:45 02/02/18 18:44 Dextrose (Dextrose 50%) STAT PRN IV Hypoglycemia 01/03/18 18:45 02/02/18 18:44 Heparin Sodium (Porcine) (Heparin 5000 units/ml) 5,000 units EVERY 12 HOURS SUBQ 01/03/18 21:00 02/02/18 20:59 01/07/18 09:20 Levofloxacin 50 ml @ 50 mls/hr Q24H IVPB 01/05/18 23:00 01/12/18 22:59 01/06/18 22:36 Lorazepam (Ativan 2mg/ml 1ml) 0.5 mg Q4H PRN IV For Anxiety 01/03/18 18:45 01/10/18 18:44 Methylprednisolone Sodium Succinate (Solu-MEDROL) 20 mg DAILY IVP 01/07/18 09:00 02/06/18 08:59 01/07/18 09:19 Nitroglycerin (Ntg) 0.4 mg Q5M X 3 DOSES PRN SL Prn Chest Pain 01/03/18 18:45 02/02/18 18:44 Ondansetron HCl (Zofran) 4 mg Q6H PRN IVP Nausea & Vomiting 01/03/18 18:45 02/02/18 18:44 Oseltamivir Phosphate (Tamiflu) 30 mg BID ORAL 01/07/18 18:00 01/09/18 23:59 Promethazine HCl/ Codeine (Phenergan with Codeine) 5 ml Q6H PRN ORAL cough 01/03/18 18:45 02/02/18 18:44 01/04/18 14:44 Temazepam (Restoril) 15 mg HSPRN PRN ORAL Insomnia 01/03/18 18:45 01/10/18 18:44 KEYSHAWN MONTGOMERY M.D. Jan 07, 2018 15:15
[2018-01-07 16:00] VITALS: BP 134/75
--- NOTE | 2018-01-07 19:38 | General Progress Note ---
Assessment/Plan Status: stable, progressing Assessment/Plan encephalopathy anxiety ativan prn d/w daughter Subjective Date patient seen: Jan 07, 2018 Neurologic/Psychiatric: Reports: anxiety, depressed, emotional problems Allergies: Coded Allergies: MORPHINE (Verified Allergy, Unknown, 01/03/18) Uncoded Allergies: LACTOSE (Allergy, Unknown, 01/03/18) Objective Last 24 Hour Vital Signs Date Time Temp Pulse Resp B/P (MAP) Pulse Ox O2 Delivery O2 Flow Rate FiO2 01/07/18 19:09 65 20 100 Nasal Cannula 2.0 28 01/07/18 18:59 97 Nasal Cannula 2.0 28 01/07/18 18:59 63 20 97 Nasal Cannula 2.0 28 01/07/18 18:59 Nasal Cannula 2.0 28 01/07/18 16:00 97.2 61 24 134/75 99 Nasal Cannula 2.0 97.2 01/07/18 15:14 61 01/07/18 14:04 66 20 100 Nasal Cannula 3.0 32 01/07/18 13:57 61 20 100 Nasal Cannula 3.0 32 01/07/18 12:00 97.5 62 20 113/62 99 Nasal Cannula 2.0 97.5 01/07/18 11:36 62 01/07/18 08:00 97.5 64 20 126/47 99 Nasal Cannula 2.0 97.5 01/07/18 07:35 65 20 100 Nasal Cannula 3.0 32 01/07/18 07:32 63 01/07/18 07:28 65 20 100 Nasal Cannula 3.0 32 01/07/18 07:28 100 Nasal Cannula 3.0 32 01/07/18 07:28 Nasal Cannula 3.0 32 01/07/18 04:00 96.1 69 19 128/52 99 Nasal Cannula 3.0 96.1 01/07/18 04:00 64 01/07/18 01:29 73 20 100 Nasal Cannula 3.0 32 01/07/18 01:25 87 24 97 Nasal Cannula 3.0 32 01/07/18 00:00 68 01/06/18 23:58 97.5 70 20 110/54 99 Nasal Cannula 3.0 97.5 01/06/18 20:00 69 01/06/18 19:55 97.7 70 20 116/89 100 Nasal Cannula 3.0 97.7 Intake and Output 01/06/18 01/07/18 19:00 07:00 Intake Total 50 ml Output Total 1 ml 500 ml Balance -1 ml -450 ml IV Total 50 ml Output Urine Total 1 ml 500 ml # Bowel Movements 1 Laboratory Tests 01/07/18 05:30: White Blood Count 3.4L, Red Blood Count 3.83L, Hemoglobin 10.5L, Hematocrit 32.7L, Mean Corpuscular Volume 85, Mean Corpuscular Hemoglobin 27.4, Mean Corpuscular Hemoglobin Concent 32.1, Red Cell Distribution Width 14.9H, Platelet Count 144L, Mean Platelet Volume 8.9, Neutrophils (%) (Auto) , Lymphocytes (%) (Auto) , Monocytes (%) (Auto) , Eosinophils (%) (Auto) , Basophils (%) (Auto) , Differential Total Cells Counted 100, Neutrophils % ( Manual) 58, Lymphocytes % (Manual) 23, Monocytes % (Manual) 19H, Eosinophils % ( Manual) 0, Basophils % (Manual) 0, Band Neutrophils 0, Platelet Estimate DecreasedL, Platelet Morphology Normal, Hypochromasia 1+, Anisocytosis 1+, Sodium Level 147H, Potassium Level 3.4L, Chloride Level 111H, Carbon Dioxide Level 30, Anion Gap 6, Blood Urea Nitrogen 50H, Creatinine 1.4H, Estimat Glomerular Filtration Rate , Glucose Level 128H, Calcium Level 8.6, Total Bilirubin 0.3, Aspartate Amino Transf (AST/SGOT) 35, Alanine Aminotransferase ( ALT/SGPT) 48, Alkaline Phosphatase 77, Pro-B-Type Natriuretic Peptide > 96138Y, Total Protein 6.8, Albumin 2.5L, Globulin 4.3, Albumin/Globulin Ratio 0.6L Height (Feet): 5 Height (Inches): 2.00 Weight (Pounds): 190 General Appearance: no apparent distress, alert Glory Valle M.D. Jan 07, 2018 19:38
--- NOTE | 2018-01-07 19:57 | Cardiology Progress Note ---
Assessment/Plan Assessment/Plan 1. Bronchospasms. 2. Chronic heart failure, systolic and diastolic. 3. Possible history of atrial fibrillation, not clear. 4. Coronary disease history. 5. Chronic kidney disease. 6. Diabetes mellitus type 2. 7. Pulmonary hypertension. 8. Abnormal cardiac enzymes of questionable significance in light of renal insufficienc tele noted has less wheezes today need more diuretic laix 40 mg bid on steroids now will dc coreg for nwo tele reviewed v or av pacing trop no peak [place] not reach level of mi by WHO criteria soudn better to day min elevated amylase and normal lipase Subjective Cardiovascular: Denies: chest pain, irregular heart rate, lightheadedness, palpitations Respiratory: Denies: shortness of breath Gastrointestinal/Abdominal: Denies: abdominal pain Genitourinary: Denies: burning Objective Last 24 Hour Vital Signs Date Time Temp Pulse Resp B/P (MAP) Pulse Ox O2 Delivery O2 Flow Rate FiO2 01/07/18 19:09 65 20 100 Nasal Cannula 2.0 28 01/07/18 18:59 97 Nasal Cannula 2.0 28 01/07/18 18:59 63 20 97 Nasal Cannula 2.0 28 01/07/18 18:59 Nasal Cannula 2.0 28 01/07/18 16:00 97.2 61 24 134/75 99 Nasal Cannula 2.0 97.2 01/07/18 15:14 61 01/07/18 14:04 66 20 100 Nasal Cannula 3.0 32 01/07/18 13:57 61 20 100 Nasal Cannula 3.0 32 01/07/18 12:00 97.5 62 20 113/62 99 Nasal Cannula 2.0 97.5 01/07/18 11:36 62 01/07/18 08:00 97.5 64 20 126/47 99 Nasal Cannula 2.0 97.5 01/07/18 07:35 65 20 100 Nasal Cannula 3.0 32 01/07/18 07:32 63 01/07/18 07:28 65 20 100 Nasal Cannula 3.0 32 01/07/18 07:28 100 Nasal Cannula 3.0 32 01/07/18 07:28 Nasal Cannula 3.0 32 01/07/18 04:00 96.1 69 19 128/52 99 Nasal Cannula 3.0 96.1 01/07/18 04:00 64 01/07/18 01:29 73 20 100 Nasal Cannula 3.0 32 01/07/18 01:25 87 24 97 Nasal Cannula 3.0 32 01/07/18 00:00 68 01/06/18 23:58 97.5 70 20 110/54 99 Nasal Cannula 3.0 97.5 01/06/18 20:00 69 01/06/18 19:55 97.7 70 20 116/89 100 Nasal Cannula 3.0 97.7 General Appearance: alert Neck: no JVD Cardiovascular: regular rhythm Respiratory/Chest: crackles/rales - left base Abdomen: normal bowel sounds, non tender, soft Extremities: no swelling Intake and Output 01/06/18 01/07/18 19:00 07:00 Intake Total 50 ml Output Total 1 ml 500 ml Balance -1 ml -450 ml IV Total 50 ml Output Urine Total 1 ml 500 ml # Bowel Movements 1 Laboratory Tests Test 01/07/18 05:30 White Blood Count 3.4 K/UL (4.8-10.8) L Red Blood Count 3.83 M/UL (4.20-5.40) L Hemoglobin 10.5 G/DL (12.0-16.0) L Hematocrit 32.7 % (37.0-47.0) L Mean Corpuscular Volume 85 FL (80-99) Mean Corpuscular Hemoglobin 27.4 PG (27.0-31.0) Mean Corpuscular Hemoglobin Concent 32.1 G/DL (32.0-36.0) Red Cell Distribution Width 14.9 % (11.6-14.8) H Platelet Count 144 K/UL (150-450) L Mean Platelet Volume 8.9 FL (6.5-10.1) Neutrophils (%) (Auto) % (45.0-75.0) Lymphocytes (%) (Auto) % (20.0-45.0) Monocytes (%) (Auto) % (1.0-10.0) Eosinophils (%) (Auto) % (0.0-3.0) Basophils (%) (Auto) % (0.0-2.0) Differential Total Cells Counted 100 Neutrophils % (Manual) 58 % (45-75) Lymphocytes % (Manual) 23 % (20-45) Monocytes % (Manual) 19 % (1-10) H Eosinophils % (Manual) 0 % (0-3) Basophils % (Manual) 0 % (0-2) Band Neutrophils 0 % (0-8) Platelet Estimate Decreased L Platelet Morphology Normal Hypochromasia 1+ Anisocytosis 1+ Sodium Level 147 MMOL/L (136-145) H Potassium Level 3.4 MMOL/L (3.5-5.1) L Chloride Level 111 MMOL/L (98-107) H Carbon Dioxide Level 30 MMOL/L (21-32) Anion Gap 6 mmol/L (5-15) Blood Urea Nitrogen 50 mg/dL (7-18) H Creatinine 1.4 MG/DL (0.55-1.30) H Estimat Glomerular Filtration Rate mL/min (>60) Glucose Level 128 MG/DL (74-106) H Calcium Level 8.6 MG/DL (8.5-10.1) Total Bilirubin 0.3 MG/DL (0.2-1.0) Aspartate Amino Transf (AST/SGOT) 35 U/L (15-37) Alanine Aminotransferase (ALT/SGPT) 48 U/L (12-78) Alkaline Phosphatase 77 U/L (46-116) Pro-B-Type Natriuretic Peptide > 99619 pg/mL (0-125) H Total Protein 6.8 G/DL (6.4-8.2) Albumin 2.5 G/DL (3.4-5.0) L Globulin 4.3 g/dL Albumin/Globulin Ratio 0.6 (1.0-2.7) L ARCENIO PLATT Jan 07, 2018 19:57
[2018-01-07 20:00] VITALS: BP 130/60
[2018-01-07] MEDS: Atorvastatin 80mg tab ORAL SCH (20:18)
[2018-01-07] MEDS: Levofloxacin 250mg/D5W 50ml IVPB SCH (22:56)
[2018-01-08] VITALS: BP 134/70
[2018-01-08] MEDS: Albuterol/Ipratropium 3ml neb HHN SCH ×4 (00:55→19:40)
[2018-01-08 04:00] VITALS: BP 137/76
[2018-01-08 08:00] VITALS: BP 114/71
[2018-01-08] MEDS: Amiodarone 200mg tab ORAL SCH ×2 (09:00→09:07)
[2018-01-08] MEDS: Solu-MEDROL 40mg Inj IVP SCH (09:05)
[2018-01-08] MEDS: Heparin 5000 units/ml inj SUBQ SCH ×2 (09:07→20:19)
[2018-01-08 12:00] VITALS: BP 128/76
[2018-01-08] MEDS ORDERED: TAMIFLU30 MG ORAL (12:21)
[2018-01-08] MEDS ORDERED: LEVOFLOXACIN500 MG ORAL (12:21)
--- NOTE | 2018-01-08 12:24 | Pulmonology Progress Note ---
Assessment/Plan Problems: (1) Acute respiratory failure (2) CHF exacerbation (3) Renal insufficiency (4) Influenza B (5) COPD exacerbation (6) Elevated troponin I level Assessment/Plan improving on nasal cannula respiratory treatment continue abx, as per Id on flomax and steroids on tamiflu and levofloxacin diuresed total of > 3 liters. chest pt incentive spirometry dc to correction Subjective ROS Limited/Unobtainable: No Constitutional: Reports: no symptoms HEENT: Repors: no symptoms Respiratory: Reports: no symptoms Allergies: Coded Allergies: MORPHINE (Verified Allergy, Unknown, 01/03/18) Uncoded Allergies: LACTOSE (Allergy, Unknown, 01/03/18) Objective Last 24 Hour Vital Signs Date Time Temp Pulse Resp B/P (MAP) Pulse Ox O2 Delivery O2 Flow Rate FiO2 01/08/18 12:17 65 18 97 Nasal Cannula 1.0 24 01/08/18 08:00 61 01/08/18 08:00 97.8 64 20 114/71 100 Nasal Cannula 2.0 97.8 01/08/18 07:11 65 18 99 Nasal Cannula 2.0 28 01/08/18 07:01 63 20 98 Nasal Cannula 2.0 28 01/08/18 07:01 98 Nasal Cannula 2.0 28 01/08/18 07:01 Nasal Cannula 2.0 28 01/08/18 04:00 96.6 72 22 137/76 99 Nasal Cannula 2.0 96.6 01/08/18 03:54 61 01/08/18 01:03 63 18 100 Nasal Cannula 2.0 28 01/08/18 00:55 61 18 98 Nasal Cannula 2.0 28 01/08/18 00:00 98.9 64 18 134/70 98 Nasal Cannula 2.0 98.9 01/07/18 23:56 60 01/07/18 20:00 98.1 67 21 130/60 99 Nasal Cannula 2.0 98.1 01/07/18 19:54 62 01/07/18 19:09 65 20 100 Nasal Cannula 2.0 28 01/07/18 18:59 97 Nasal Cannula 2.0 28 01/07/18 18:59 63 20 97 Nasal Cannula 2.0 28 01/07/18 18:59 Nasal Cannula 2.0 28 01/07/18 16:00 97.2 61 24 134/75 99 Nasal Cannula 2.0 97.2 01/07/18 15:14 61 01/07/18 14:04 66 20 100 Nasal Cannula 3.0 32 01/07/18 13:57 61 20 100 Nasal Cannula 3.0 32 Intake and Output 01/07/18 01/08/18 19:00 07:00 Intake Total 360 ml 110 ml Output Total 500 ml 1700 ml Balance -140 ml -1590 ml Intake Oral 360 ml 60 ml IV Total 50 ml Output Urine Total 500 ml 1700 ml General Appearance: WD/WN HEENT: normocephalic, atraumatic Respiratory/Chest: chest wall non-tender, lungs clear Breasts: no masses Cardiovascular: normal rate Abdomen: normal bowel sounds, soft, non tender Extremities: no clubbing 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, abnormal gait, oriented x 3 Current Medications Medications (Trade) Dose Ordered Sig/Jordan Route PRN Reason Start Time Stop Time Status Last Admin Dose Admin Acetaminophen (Tylenol) 650 mg Q4H PRN ORAL fever 01/03/18 18:45 02/02/18 18:44 01/06/18 21:06 Albuterol/ Ipratropium (Albuterol/ Ipratropium) 3 ml Q4H PRN HHN Shortness of Breath 01/06/18 09:30 01/11/18 09:29 01/06/18 10:07 Albuterol/ Ipratropium (Albuterol/ Ipratropium) 3 ml Q6HRT HHN 01/05/18 13:00 01/10/18 12:59 01/08/18 12:16 Amiodarone HCl (Cordarone) 100 mg DAILY ORAL 01/04/18 09:00 02/03/18 08:59 01/08/18 09:07 Atorvastatin Calcium (Lipitor) 80 mg BEDTIME ORAL 01/03/18 21:00 02/02/18 20:59 01/07/18 20:18 Clonidine HCl (Catapres Tab) 0.1 mg Q4H PRN ORAL sbp more than 160 01/03/18 18:45 02/02/18 18:44 Dextrose (Dextrose 50%) STAT PRN IV Hypoglycemia 01/03/18 18:45 02/02/18 18:44 Furosemide (Lasix) 40 mg BID IV 01/07/18 20:00 01/09/18 13:00 01/08/18 09:04 Heparin Sodium (Porcine) (Heparin 5000 units/ml) 5,000 units EVERY 12 HOURS SUBQ 01/03/18 21:00 02/02/18 20:59 01/08/18 09:07 Levofloxacin 50 ml @ 50 mls/hr Q24H IVPB 01/05/18 23:00 01/12/18 22:59 01/07/18 22:56 Lorazepam (Ativan 2mg/ml 1ml) 0.5 mg Q4H PRN IV For Anxiety 01/03/18 18:45 01/10/18 18:44 Methylprednisolone Sodium Succinate (Solu-MEDROL) 20 mg DAILY IVP 01/07/18 09:00 02/06/18 08:59 01/08/18 09:05 Nitroglycerin (Ntg) 0.4 mg Q5M X 3 DOSES PRN SL Prn Chest Pain 01/03/18 18:45 02/02/18 18:44 Ondansetron HCl (Zofran) 4 mg Q6H PRN IVP Nausea & Vomiting 01/03/18 18:45 02/02/18 18:44 Oseltamivir Phosphate (Tamiflu) 30 mg BID ORAL 01/07/18 18:00 01/09/18 23:59 01/08/18 09:05 Promethazine HCl/ Codeine (Phenergan with Codeine) 5 ml Q6H PRN ORAL cough 01/03/18 18:45 02/02/18 18:44 01/04/18 14:44 Temazepam (Restoril) 15 mg HSPRN PRN ORAL Insomnia 01/03/18 18:45 01/10/18 18:44 JACOBY CADENA Jan 08, 2018 12:23
[2018-01-08 16:00] VITALS: BP 130/75
--- NOTE | 2018-01-08 16:12 | General Progress Note ---
Assessment/Plan Status: stable Assessment/Plan encephalopathy anxiety ativan prn d/w daughter Subjective Date patient seen: Jan 08, 2018 Neurologic/Psychiatric: Reports: anxiety, depressed, emotional problems Allergies: Coded Allergies: MORPHINE (Verified Allergy, Unknown, 01/03/18) Uncoded Allergies: LACTOSE (Allergy, Unknown, 01/03/18) Subjective waxing and waning of consciousness Objective Last 24 Hour Vital Signs Date Time Temp Pulse Resp B/P (MAP) Pulse Ox O2 Delivery O2 Flow Rate FiO2 01/08/18 15:40 68 22 Nasal Cannula 1.0 24 01/08/18 12:28 67 20 99 Nasal Cannula 1.0 24 01/08/18 12:17 65 18 97 Nasal Cannula 1.0 24 01/08/18 12:00 97.3 67 18 128/76 97 Nasal Cannula 2.0 97.3 01/08/18 12:00 62 01/08/18 08:00 61 01/08/18 08:00 97.8 64 20 114/71 100 Nasal Cannula 2.0 97.8 01/08/18 07:11 65 18 99 Nasal Cannula 2.0 28 01/08/18 07:01 63 20 98 Nasal Cannula 2.0 28 01/08/18 07:01 98 Nasal Cannula 2.0 28 01/08/18 07:01 Nasal Cannula 2.0 28 01/08/18 04:00 96.6 72 22 137/76 99 Nasal Cannula 2.0 96.6 01/08/18 03:54 61 01/08/18 01:03 63 18 100 Nasal Cannula 2.0 28 01/08/18 00:55 61 18 98 Nasal Cannula 2.0 28 01/08/18 00:00 98.9 64 18 134/70 98 Nasal Cannula 2.0 98.9 01/07/18 23:56 60 01/07/18 20:00 98.1 67 21 130/60 99 Nasal Cannula 2.0 98.1 01/07/18 19:54 62 01/07/18 19:09 65 20 100 Nasal Cannula 2.0 28 01/07/18 18:59 97 Nasal Cannula 2.0 28 01/07/18 18:59 63 20 97 Nasal Cannula 2.0 28 01/07/18 18:59 Nasal Cannula 2.0 28 Intake and Output 3/7/18 3/8/18 19:00 07:00 Intake Total 360 ml 110 ml Output Total 500 ml 1700 ml Balance -140 ml -1590 ml Intake Oral 360 ml 60 ml IV Total 50 ml Output Urine Total 500 ml 1700 ml Height (Feet): 5 Height (Inches): 2.00 Weight (Pounds): 201 General Appearance: no apparent distress, alert, confused Glory Valle M.D. Jan 08, 2018 16:12
--- NOTE | 2018-01-08 19:39 | Cardiology Progress Note ---
Assessment/Plan Assessment/Plan 1. Bronchospasms. 2. Chronic heart failure, systolic and diastolic. 3. Possible history of atrial fibrillation, not clear. 4. Coronary disease history. 5. Chronic kidney disease. 6. Diabetes mellitus type 2. 7. Pulmonary hypertension. 8. Abnormal cardiac enzymes of questionable significance in light of renal insufficienc tele noted diuretic laix 40 mg bid on steroids now will dc coreg for nwo tele reviewed v or av pacing trop no peak [place] not reach level of mi by WHO criteria dc planning per dr linn Subjective Cardiovascular: Denies: chest pain, lightheadedness, palpitations Respiratory: Denies: shortness of breath Gastrointestinal/Abdominal: Denies: abdominal pain Genitourinary: Denies: burning Objective Last 24 Hour Vital Signs Date Time Temp Pulse Resp B/P (MAP) Pulse Ox O2 Delivery O2 Flow Rate FiO2 01/08/18 16:00 66 01/08/18 16:00 97.8 75 18 130/75 100 Nasal Cannula 2.0 97.8 01/08/18 15:40 68 22 Nasal Cannula 1.0 24 01/08/18 12:28 67 20 99 Nasal Cannula 1.0 24 01/08/18 12:17 65 18 97 Nasal Cannula 1.0 24 01/08/18 12:00 97.3 67 18 128/76 97 Nasal Cannula 2.0 97.3 01/08/18 12:00 62 01/08/18 08:00 61 01/08/18 08:00 97.8 64 20 114/71 100 Nasal Cannula 2.0 97.8 01/08/18 07:11 65 18 99 Nasal Cannula 2.0 28 01/08/18 07:01 63 20 98 Nasal Cannula 2.0 28 01/08/18 07:01 98 Nasal Cannula 2.0 28 01/08/18 07:01 Nasal Cannula 2.0 28 01/08/18 04:00 96.6 72 22 137/76 99 Nasal Cannula 2.0 96.6 01/08/18 03:54 61 01/08/18 01:03 63 18 100 Nasal Cannula 2.0 28 01/08/18 00:55 61 18 98 Nasal Cannula 2.0 28 01/08/18 00:00 98.9 64 18 134/70 98 Nasal Cannula 2.0 98.9 01/07/18 23:56 60 01/07/18 20:00 98.1 67 21 130/60 99 Nasal Cannula 2.0 98.1 01/07/18 19:54 62 General Appearance: no apparent distress, alert Neck: no JVD Cardiovascular: regular rhythm Respiratory/Chest: crackles/rales - lweft base Abdomen: normal bowel sounds, non tender, soft Extremities: moderate edema Intake and Output 01/07/18 01/08/18 19:00 07:00 Intake Total 360 ml 110 ml Output Total 500 ml 1700 ml Balance -140 ml -1590 ml Intake Oral 360 ml 60 ml IV Total 50 ml Output Urine Total 500 ml 1700 ml Microbiology Date/Time Source Procedure Growth Status 01/07/18 05:00 Sputum Expectorated Gram Stain - Final Resulted 01/07/18 05:00 Sputum Expectorated Sputum Culture Pending Resulted ARCENIO PLATT Jan 08, 2018 19:39
[2018-01-08 20:00] VITALS: BP 125/54
[2018-01-08] MEDS: Atorvastatin 80mg tab ORAL SCH (20:16)
--- NOTE | 2018-01-08 20:36 | Infectious Diseases Prog Note ---
Assessment/Plan Assessment/Plan A: influenza B infection COPD Exacerb / Bronchitis CHF exacerbation elevated troponin ROSA vs CKD HTN pacemaker PAF anemia dysphagia elevated LFT, probably liver congestion P: cont pt on Levaquin and Tamiflu d# 3 / 5 IV steroids Monitor CBC Monitor BMP Monitor Cultures droplet isolation cardio eval Monitor C- Xray Subjective Allergies: Coded Allergies: MORPHINE (Verified Allergy, Unknown, 01/03/18) Uncoded Allergies: LACTOSE (Allergy, Unknown, 01/03/18) Subjective afebrile Objective Vital Signs Last 24 Hour Vital Signs Date Time Temp Pulse Resp B/P (MAP) Pulse Ox O2 Delivery O2 Flow Rate FiO2 01/08/18 20:00 97.9 78 20 125/54 100 Nasal Cannula 2.0 97.9 01/08/18 19:57 75 20 100 Nasal Cannula 1.0 24 01/08/18 19:41 Nasal Cannula 2.0 28 01/08/18 19:41 98 Nasal Cannula 2.0 28 01/08/18 19:40 71 18 99 Nasal Cannula 1.0 24 01/08/18 16:00 66 01/08/18 16:00 97.8 75 18 130/75 100 Nasal Cannula 2.0 97.8 01/08/18 15:40 68 22 Nasal Cannula 1.0 24 01/08/18 12:28 67 20 99 Nasal Cannula 1.0 24 01/08/18 12:17 65 18 97 Nasal Cannula 1.0 24 01/08/18 12:00 97.3 67 18 128/76 97 Nasal Cannula 2.0 97.3 01/08/18 12:00 62 01/08/18 08:00 61 01/08/18 08:00 97.8 64 20 114/71 100 Nasal Cannula 2.0 97.8 01/08/18 07:11 65 18 99 Nasal Cannula 2.0 28 01/08/18 07:01 63 20 98 Nasal Cannula 2.0 28 01/08/18 07:01 98 Nasal Cannula 2.0 28 01/08/18 07:01 Nasal Cannula 2.0 28 01/08/18 04:00 96.6 72 22 137/76 99 Nasal Cannula 2.0 96.6 01/08/18 03:54 61 01/08/18 01:03 63 18 100 Nasal Cannula 2.0 28 01/08/18 00:55 61 18 98 Nasal Cannula 2.0 28 01/08/18 00:00 98.9 64 18 134/70 98 Nasal Cannula 2.0 98.9 01/07/18 23:56 60 Height (Feet): 5 Height (Inches): 2.00 Weight (Pounds): 201 HEENT: mucous membranes moist Respiratory/Chest: normal breath sounds Cardiovascular: normal rate Abdomen: soft, non tender Microbiology Date/Time Source Procedure Growth Status 01/07/18 05:00 Sputum Expectorated Gram Stain - Final Resulted 01/07/18 05:00 Sputum Expectorated Sputum Culture Pending Resulted Current Medications Medications (Trade) Dose Ordered Sig/Jordan Route PRN Reason Start Time Stop Time Status Last Admin Dose Admin Acetaminophen (Tylenol) 650 mg Q4H PRN ORAL fever 01/03/18 18:45 02/02/18 18:44 01/08/18 20:31 Albuterol/ Ipratropium (Albuterol/ Ipratropium) 3 ml Q4H PRN HHN Shortness of Breath 01/06/18 09:30 01/11/18 09:29 01/06/18 10:07 Albuterol/ Ipratropium (Albuterol/ Ipratropium) 3 ml Q6HRT HHN 01/05/18 13:00 01/10/18 12:59 01/08/18 19:40 Amiodarone HCl (Cordarone) 100 mg DAILY ORAL 01/04/18 09:00 02/03/18 08:59 01/08/18 09:07 Atorvastatin Calcium (Lipitor) 80 mg BEDTIME ORAL 01/03/18 21:00 02/02/18 20:59 01/08/18 20:16 Clonidine HCl (Catapres Tab) 0.1 mg Q4H PRN ORAL sbp more than 160 01/03/18 18:45 02/02/18 18:44 Dextrose (Dextrose 50%) STAT PRN IV Hypoglycemia 01/03/18 18:45 02/02/18 18:44 Furosemide (Lasix) 40 mg BID IV 01/07/18 20:00 01/09/18 13:00 01/08/18 18:12 Heparin Sodium (Porcine) (Heparin 5000 units/ml) 5,000 units EVERY 12 HOURS SUBQ 01/03/18 21:00 02/02/18 20:59 01/08/18 20:19 Levofloxacin 50 ml @ 50 mls/hr Q24H IVPB 01/05/18 23:00 01/12/18 22:59 01/07/18 22:56 Lorazepam (Ativan 2mg/ml 1ml) 0.5 mg Q4H PRN IV For Anxiety 01/03/18 18:45 01/10/18 18:44 Methylprednisolone Sodium Succinate (Solu-MEDROL) 20 mg DAILY IVP 01/07/18 09:00 02/06/18 08:59 01/08/18 09:05 Nitroglycerin (Ntg) 0.4 mg Q5M X 3 DOSES PRN SL Prn Chest Pain 01/03/18 18:45 02/02/18 18:44 Ondansetron HCl (Zofran) 4 mg Q6H PRN IVP Nausea & Vomiting 01/03/18 18:45 02/02/18 18:44 Oseltamivir Phosphate (Tamiflu) 30 mg BID ORAL 01/07/18 18:00 01/09/18 23:59 01/08/18 18:13 Promethazine HCl/ Codeine (Phenergan with Codeine) 5 ml Q6H PRN ORAL cough 01/03/18 18:45 02/02/18 18:44 01/04/18 14:44 Temazepam (Restoril) 15 mg HSPRN PRN ORAL Insomnia 01/03/18 18:45 01/10/18 18:44 KEYSHAWN MONTGOMERY M.D. Jan 08, 2018 20:36
[2018-01-08] MEDS: Levofloxacin 250mg/D5W 50ml IVPB SCH (22:57)
[2018-01-09] VITALS: BP 136/76
[2018-01-09] MEDS: Albuterol/Ipratropium 3ml neb HHN SCH ×4 (00:53→19:36)
[2018-01-09 04:00] VITALS: BP 133/62
[2018-01-09 05:57] LABS: BASOPHILS % (AUTO) 1.1 % (0.0-2.0); EOSINOPHILS % (AUTO) 0.1 % (0.0-3.0); HEMATOCRIT 35.3 % (37.0-47.0); HEMOGLOBIN 11.1 G/DL (12.0-16.0); LYMPHOCYTES % (AUTO) 23.2 % (20.0-45.0); MEAN CORPUSCULAR VOLUME 85 FL (80-99); MONOCYTES % (AUTO) 14.8 % (1.0-10.0); NEUTROPHILS % (AUTO) 60.8 % (45.0-75.0); PLATELET COUNT 168 K/UL (150-450); RED BLOOD COUNT 4.14 M/UL (4.20-5.40); RED CELL DISTRIBUTION WIDTH 14.8 % (11.6-14.8); WHITE BLOOD COUNT 4.1 K/UL (4.8-10.8)
[2018-01-09 06:41] LABS: ALANINE AMINOTRANSFERASE 35 U/L (12-78); ALBUMIN 2.5 G/DL (3.4-5.0); ALBUMIN/GLOBULIN RATIO 0.6 (1.0-2.7); ALKALINE PHOSPHATASE 69 U/L (46-116); ANION GAP 6 mmol/L (5-15); ASPARTATE AMINO TRANSFERASE 21 U/L (15-37); BILIRUBIN,TOTAL 0.3 MG/DL (0.2-1.0); BLOOD UREA NITROGEN 36 mg/dL (7-18); CALCIUM 8.7 MG/DL (8.5-10.1); CARBON DIOXIDE 33 MMOL/L (21-32); CHLORIDE 110 MMOL/L (98-107); CREATININE 1.2 MG/DL (0.55-1.30); POTASSIUM 3.8 MMOL/L (3.5-5.1); SODIUM 149 MMOL/L (136-145)
[2018-01-09 08:00] VITALS: BP 137/66
[2018-01-09] MEDS: Amiodarone 200mg tab ORAL SCH (09:11)
[2018-01-09] MEDS: Solu-MEDROL 40mg Inj IVP SCH (09:12)
[2018-01-09] MEDS: Heparin 5000 units/ml inj SUBQ SCH ×2 (09:14→21:56)
--- NOTE | 2018-01-09 10:59 | Diagnostic Imaging Report ---
Indication: Dyspnea Technique: One view of the chest Comparison: 01/07/2018 Findings: Left chest biventricular AICD is again demonstrated. There is slightly increased interstitial and airspace disease. The heart remains enlarged. Impression: Slight worsening interstitial and airspace edema, over 2 days Other stable findings as described
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
[2018-01-09 12:00] VITALS: BP 138/90
[2018-01-09] MEDS ORDERED: Nitroglycerin Subl 0.4mg tab SL PRN (15:30)
[2018-01-09 16:00] VITALS: BP 120/59
[2018-01-09] MEDS ORDERED: LORazepam Inj 2mg/ml 1ml IV PRN (16:00)
[2018-01-09] MEDS ORDERED: Promethazine/Codeine 5ml UD ORAL PRN (16:00)
[2018-01-09] MEDS ORDERED: Albuterol/Ipratropium 3ml neb HHN PRN (16:00)
--- NOTE | 2018-01-09 19:05 | Infectious Diseases Prog Note ---
Assessment/Plan Assessment/Plan A: influenza B infection COPD Exacerb / Bronchitis cxray : Slight worsening interstitial and airspace edema, over 2 days CHF exacerbation elevated troponin ROSA vs CKD HTN pacemaker PAF anemia dysphagia elevated LFT, probably liver congestion P: cont pt on Levaquin d# 7/7 and Tamiflu d# 5/5 IV steroids Monitor CBC Monitor BMP Monitor Cultures droplet isolation cardio eval Monitor C- Xray Subjective Allergies: Coded Allergies: MORPHINE (Verified Allergy, Unknown, 01/03/18) Uncoded Allergies: LACTOSE (Allergy, Unknown, 01/03/18) Subjective afebrile Objective Vital Signs Last 24 Hour Vital Signs Date Time Temp Pulse Resp B/P (MAP) Pulse Ox O2 Delivery O2 Flow Rate FiO2 01/09/18 16:00 97.8 65 20 120/59 100 97.8 01/09/18 12:56 73 18 99 Nasal Cannula 2.0 28 01/09/18 12:46 71 18 98 Nasal Cannula 2.0 28 01/09/18 12:00 97.7 73 20 138/90 100 Room Air 97.7 01/09/18 12:00 80 01/09/18 08:00 97.9 77 20 137/66 98 Nasal Cannula 2.0 97.9 01/09/18 08:00 79 01/09/18 06:29 79 20 99 Room Air 21 01/09/18 06:19 97 Room Air 21 01/09/18 06:19 Room Air 21 01/09/18 06:19 78 18 98 Room Air 21 01/09/18 04:00 79 01/09/18 04:00 97.7 81 24 133/62 99 Nasal Cannula 2.0 97.7 01/09/18 01:03 74 20 99 Nasal Cannula 1.0 24 01/09/18 00:54 73 18 98 Nasal Cannula 1.0 24 01/09/18 00:00 76 01/09/18 00:00 98.7 70 20 136/76 98 Nasal Cannula 2.0 98.7 01/08/18 20:00 97.9 78 20 125/54 100 Nasal Cannula 2.0 97.9 01/08/18 20:00 69 01/08/18 19:57 75 20 100 Nasal Cannula 1.0 24 01/08/18 19:41 Nasal Cannula 2.0 28 01/08/18 19:41 98 Nasal Cannula 2.0 28 01/08/18 19:40 71 18 99 Nasal Cannula 1.0 24 Height (Feet): 5 Height (Inches): 2.00 Weight (Pounds): 195 HEENT: anicteric Respiratory/Chest: no respiratory distress Cardiovascular: regular rhythm Abdomen: non distended Microbiology Date/Time Source Procedure Growth Status 01/07/18 05:00 Sputum Expectorated Gram Stain - Final Resulted 01/07/18 05:00 Sputum Culture - Preliminary Staphylococcus Aureus Usual Respiratory April Resulted Laboratory Tests Test 01/09/18 05:00 01/09/18 11:04 White Blood Count 4.1 K/UL (4.8-10.8) L Red Blood Count 4.14 M/UL (4.20-5.40) L Hemoglobin 11.1 G/DL (12.0-16.0) L Hematocrit 35.3 % (37.0-47.0) L Mean Corpuscular Volume 85 FL (80-99) Mean Corpuscular Hemoglobin 26.7 PG (27.0-31.0) L Mean Corpuscular Hemoglobin Concent 31.3 G/DL (32.0-36.0) L Red Cell Distribution Width 14.8 % (11.6-14.8) Platelet Count 168 K/UL (150-450) Mean Platelet Volume 7.8 FL (6.5-10.1) Neutrophils (%) (Auto) 60.8 % (45.0-75.0) Lymphocytes (%) (Auto) 23.2 % (20.0-45.0) Monocytes (%) (Auto) 14.8 % (1.0-10.0) H Eosinophils (%) (Auto) 0.1 % (0.0-3.0) Basophils (%) (Auto) 1.1 % (0.0-2.0) Sodium Level 149 MMOL/L (136-145) H Potassium Level 3.8 MMOL/L (3.5-5.1) Chloride Level 110 MMOL/L (98-107) H Carbon Dioxide Level 33 MMOL/L (21-32) H Anion Gap 6 mmol/L (5-15) Blood Urea Nitrogen 36 mg/dL (7-18) H Creatinine 1.2 MG/DL (0.55-1.30) Estimat Glomerular Filtration Rate mL/min (>60) Glucose Level 105 MG/DL (74-106) Calcium Level 8.7 MG/DL (8.5-10.1) Total Bilirubin 0.3 MG/DL (0.2-1.0) Aspartate Amino Transf (AST/SGOT) 21 U/L (15-37) Alanine Aminotransferase (ALT/SGPT) 35 U/L (12-78) Alkaline Phosphatase 69 U/L (46-116) Pro-B-Type Natriuretic Peptide > 39730 pg/mL (0-125) H Total Protein 6.7 G/DL (6.4-8.2) Albumin 2.5 G/DL (3.4-5.0) L Globulin 4.2 g/dL Albumin/Globulin Ratio 0.6 (1.0-2.7) L Arterial Blood pH 7.425 (7.350-7.450) Arterial Blood Partial Pressure CO2 53.1 mmHg (35.0-45.0) H Arterial Blood Partial Pressure O2 96.9 mmHg (75.0-100.0) Arterial Blood HCO3 34.1 mmol/L (22.0-26.0) H Arterial Blood Oxygen Saturation 97.3 % (92.0-98.0) Arterial Blood Base Excess 8.2 Jorden Test Positive Current Medications Medications (Trade) Dose Ordered Sig/Jordan Route PRN Reason Start Time Stop Time Status Last Admin Dose Admin Acetaminophen (Tylenol) 650 mg Q4H PRN ORAL fever 01/09/18 16:00 02/02/18 15:59 Albuterol/ Ipratropium (Albuterol/ Ipratropium) 3 ml Q4H PRN HHN Shortness of Breath 01/09/18 16:00 01/11/18 15:59 Albuterol/ Ipratropium (Albuterol/ Ipratropium) 3 ml Q6HRT HHN 01/09/18 19:00 01/10/18 12:59 Amiodarone HCl (Cordarone) 100 mg DAILY ORAL 01/10/18 09:00 02/03/18 08:59 Atorvastatin Calcium (Lipitor) 80 mg BEDTIME ORAL 01/09/18 21:00 02/02/18 20:59 Clonidine HCl (Catapres Tab) 0.1 mg Q4H PRN ORAL sbp more than 160 01/09/18 16:00 02/02/18 15:59 Dextrose (Dextrose 50%) STAT PRN IV Hypoglycemia 01/09/18 16:00 02/02/18 15:59 Heparin Sodium (Porcine) (Heparin 5000 units/ml) 5,000 units EVERY 12 HOURS SUBQ 01/09/18 21:00 02/02/18 20:59 Levofloxacin 50 ml @ 50 mls/hr Q24H IVPB 01/09/18 23:00 01/09/18 23:59 Lorazepam (Ativan 2mg/ml 1ml) 0.5 mg Q4H PRN IV For Anxiety 01/09/18 16:00 01/10/18 15:59 Methylprednisolone Sodium Succinate (Solu-MEDROL) 20 mg DAILY IVP 01/10/18 09:00 02/06/18 08:59 Nitroglycerin (Ntg) 0.4 mg Q5M X 3 DOSES PRN SL Prn Chest Pain 01/09/18 15:30 02/02/18 18:44 Ondansetron HCl (Zofran) 4 mg Q6H PRN IVP Nausea & Vomiting 01/09/18 16:00 02/02/18 15:59 Oseltamivir Phosphate (Tamiflu) 30 mg BID ORAL 01/09/18 18:00 01/09/18 23:59 01/09/18 18:22 Promethazine HCl/ Codeine (Phenergan with Codeine) 5 ml Q6H PRN ORAL cough 01/09/18 16:00 02/02/18 15:59 01/09/18 18:23 Temazepam (Restoril) 15 mg HSPRN PRN ORAL Insomnia 01/09/18 16:00 01/10/18 15:59 KEYSHAWN MONTGOMERY M.D. Jan 09, 2018 19:04
[2018-01-09 20:00] VITALS: BP 142/106
[2018-01-09] MEDS: Atorvastatin 80mg tab ORAL SCH (21:56)
--- NOTE | 2018-01-09 21:57 | General Progress Note ---
Assessment/Plan Assessment/Plan encephalopathy anxiety ativan prn d/w daughter Subjective Date patient seen: Jan 09, 2018 Allergies: Coded Allergies: MORPHINE (Verified Allergy, Unknown, 01/03/18) Uncoded Allergies: LACTOSE (Allergy, Unknown, 01/03/18) Subjective waxing and waning of consciousness Objective Last 24 Hour Vital Signs Date Time Temp Pulse Resp B/P (MAP) Pulse Ox O2 Delivery O2 Flow Rate FiO2 01/09/18 20:00 98.0 74 20 142/106 100 98.0 01/09/18 19:44 72 18 100 Nasal Cannula 2.0 28 01/09/18 19:36 99 Nasal Cannula 2.0 28 01/09/18 19:36 Nasal Cannula 2.0 28 01/09/18 19:30 70 18 99 Nasal Cannula 2.0 28 01/09/18 16:00 97.8 65 20 120/59 100 97.8 01/09/18 16:00 Nasal Cannula 2.0 01/09/18 12:56 73 18 99 Nasal Cannula 2.0 28 01/09/18 12:46 71 18 98 Nasal Cannula 2.0 28 01/09/18 12:00 97.7 73 20 138/90 100 Room Air 97.7 01/09/18 12:00 80 01/09/18 08:00 97.9 77 20 137/66 98 Nasal Cannula 2.0 97.9 01/09/18 08:00 79 01/09/18 06:29 79 20 99 Room Air 21 01/09/18 06:19 97 Room Air 21 01/09/18 06:19 Room Air 21 01/09/18 06:19 78 18 98 Room Air 21 01/09/18 04:00 79 01/09/18 04:00 97.7 81 24 133/62 99 Nasal Cannula 2.0 97.7 01/09/18 01:03 74 20 99 Nasal Cannula 1.0 24 01/09/18 00:54 73 18 98 Nasal Cannula 1.0 24 01/09/18 00:00 76 01/09/18 00:00 98.7 70 20 136/76 98 Nasal Cannula 2.0 98.7 Intake and Output 01/08/18 01/09/18 19:00 07:00 Intake Total 1000 ml 150 ml Output Total 450 ml Balance 1000 ml -300 ml Intake Oral 1000 ml 100 ml IV Total 50 ml Output Urine Total 450 ml # Bowel Movements 4 2 Laboratory Tests 01/09/18 05:00: White Blood Count 4.1L, Red Blood Count 4.14L, Hemoglobin 11.1L, Hematocrit 35.3L, Mean Corpuscular Volume 85, Mean Corpuscular Hemoglobin 26.7L, Mean Corpuscular Hemoglobin Concent 31.3L, Red Cell Distribution Width 14.8, Platelet Count 168, Mean Platelet Volume 7.8, Neutrophils (%) (Auto) 60.8, Lymphocytes (%) (Auto) 23.2, Monocytes (%) (Auto) 14.8H, Eosinophils (%) (Auto) 0.1, Basophils (%) (Auto) 1.1, Sodium Level 149H, Potassium Level 3.8, Chloride Level 110H, Carbon Dioxide Level 33H, Anion Gap 6, Blood Urea Nitrogen 36H, Creatinine 1.2, Estimat Glomerular Filtration Rate , Glucose Level 105, Calcium Level 8.7, Total Bilirubin 0.3, Aspartate Amino Transf (AST/SGOT) 21, Alanine Aminotransferase (ALT/SGPT) 35, Alkaline Phosphatase 69, Pro-B-Type Natriuretic Peptide > 89781C, Total Protein 6.7, Albumin 2.5L, Globulin 4.2, Albumin/ Globulin Ratio 0.6L 01/09/18 11:04: Arterial Blood pH 7.425, Arterial Blood Partial Pressure CO2 53.1H, Arterial Blood Partial Pressure O2 96.9, Arterial Blood HCO3 34.1H, Arterial Blood Oxygen Saturation 97.3, Arterial Blood Base Excess 8.2, Jorden Test Positive Height (Feet): 5 Height (Inches): 2.00 Weight (Pounds): 195 Golry Valle M.D. Jan 09, 2018 21:57
[2018-01-10] VITALS: BP 127/72
[2018-01-10] MEDS: Albuterol/Ipratropium 3ml neb HHN SCH ×2 (00:05→08:18)
[2018-01-10 04:28] VITALS: BP 126/55
[2018-01-10 08:00] VITALS: BP 120/96
[2018-01-10 08:23] LABS: EOSINOPHILS % (AUTO) 0.2 % (0.0-3.0); HEMATOCRIT 34.7 % (37.0-47.0); LYMPHOCYTES % (AUTO) 21.8 % (20.0-45.0); MEAN CORPUSCULAR VOLUME 86 FL (80-99); MONOCYTES % (AUTO) 13.8 % (1.0-10.0); NEUTROPHILS % (AUTO) 63.2 % (45.0-75.0); PLATELET COUNT 172 K/UL (150-450); RED BLOOD COUNT 4.06 M/UL (4.20-5.40); RED CELL DISTRIBUTION WIDTH 14.7 % (11.6-14.8); WHITE BLOOD COUNT 4.3 K/UL (4.8-10.8)
[2018-01-10 08:57] LABS: ALANINE AMINOTRANSFERASE 30 U/L (12-78); ALBUMIN 2.4 G/DL (3.4-5.0); ALBUMIN/GLOBULIN RATIO 0.6 (1.0-2.7); ALKALINE PHOSPHATASE 64 U/L (46-116); ANION GAP 1 mmol/L (5-15); ASPARTATE AMINO TRANSFERASE 18 U/L (15-37); BILIRUBIN,TOTAL 0.4 MG/DL (0.2-1.0); BLOOD UREA NITROGEN 25 mg/dL (7-18); CALCIUM 8.6 MG/DL (8.5-10.1); CARBON DIOXIDE 39 MMOL/L (21-32); CHLORIDE 107 MMOL/L (98-107); POTASSIUM 3.8 MMOL/L (3.5-5.1); SODIUM 147 MMOL/L (136-145)
[2018-01-10] MEDS: Solu-MEDROL 40mg Inj IVP SCH (09:47)
[2018-01-10] MEDS: Amiodarone 200mg tab ORAL SCH (09:48)
[2018-01-10] MEDS: Heparin 5000 units/ml inj SUBQ SCH ×2 (09:50→20:28)
--- NOTE | 2018-01-10 10:10 | Pulmonology Progress Note ---
Assessment/Plan Problems: (1) Acute respiratory failure (2) CHF exacerbation (3) Renal insufficiency (4) Influenza B (5) COPD exacerbation (6) Elevated troponin I level Assessment/Plan no new complains improving on nasal cannula respiratory treatment continue abx, as per Id on tamiflu and steroids on tamiflu and levofloxacin diuresed total of > 3 liters. chest pt incentive spirometry dc to intermediate when ok with Id Subjective ROS Limited/Unobtainable: No Interval Events: less cough Allergies: Coded Allergies: MORPHINE (Verified Allergy, Unknown, 01/03/18) Uncoded Allergies: LACTOSE (Allergy, Unknown, 01/03/18) Objective Last 24 Hour Vital Signs Date Time Temp Pulse Resp B/P (MAP) Pulse Ox O2 Delivery O2 Flow Rate FiO2 01/10/18 08:30 69 18 99 Nasal Cannula 2.0 28 01/10/18 08:20 98 Nasal Cannula 2.0 28 01/10/18 08:20 Nasal Cannula 2.0 28 01/10/18 08:19 65 18 98 Nasal Cannula 2.0 28 01/10/18 04:28 98.1 60 17 126/55 99 98.1 01/10/18 00:00 97.2 68 20 127/72 99 Nasal Cannula 97.2 01/10/18 00:00 68 20 98 Nasal Cannula 2.0 28 01/10/18 00:00 97.2 68 20 127/72 99 Nasal Cannula 2.0 97.2 68 68 01/09/18 22:15 146/102 01/09/18 20:00 98.0 74 20 142/106 100 98.0 01/09/18 19:44 72 18 100 Nasal Cannula 2.0 28 01/09/18 19:36 99 Nasal Cannula 2.0 28 01/09/18 19:36 Nasal Cannula 2.0 28 01/09/18 19:30 70 18 99 Nasal Cannula 2.0 28 01/09/18 16:00 97.8 65 20 120/59 100 97.8 01/09/18 16:00 Nasal Cannula 2.0 01/09/18 12:56 73 18 99 Nasal Cannula 2.0 28 01/09/18 12:46 71 18 98 Nasal Cannula 2.0 28 01/09/18 12:00 97.7 73 20 138/90 100 Room Air 97.7 01/09/18 12:00 80 Intake and Output 01/09/18 01/10/18 19:00 07:00 Intake Total 600 ml 530 ml Output Total 600 ml Balance 0 ml 530 ml Intake Oral 600 ml 480 ml IV Total 50 ml Output Urine Total 600 ml # Voids 2 4 # Bowel Movements 3 Objective General Appearance: WD/WN HEENT: normocephalic, atraumatic Respiratory/Chest: chest wall non-tender, normal breath sounds Breasts: no masses Cardiovascular: normal peripheral pulses Abdomen: normal bowel sounds, soft, non tender, non distended, no scars Extremities: no cyanosis Skin: no rash, no ulcers Laboratory Tests 01/09/18 11:04: Arterial Blood pH 7.425, Arterial Blood Partial Pressure CO2 53.1H, Arterial Blood Partial Pressure O2 96.9, Arterial Blood HCO3 34.1H, Arterial Blood Oxygen Saturation 97.3, Arterial Blood Base Excess 8.2, Jorden Test Positive 01/10/18 06:35: White Blood Count 4.3L, Red Blood Count 4.06L, Hemoglobin 11.0L, Hematocrit 34.7L, Mean Corpuscular Volume 86, Mean Corpuscular Hemoglobin 27.2, Mean Corpuscular Hemoglobin Concent 31.8L, Red Cell Distribution Width 14.7, Platelet Count 172, Mean Platelet Volume 7.8, Neutrophils (%) (Auto) 63.2, Lymphocytes (%) (Auto) 21.8, Monocytes (%) (Auto) 13.8H, Eosinophils (%) (Auto) 0.2, Basophils (%) (Auto) 1.0, Sodium Level 147H, Potassium Level 3.8, Chloride Level 107, Carbon Dioxide Level 39H, Anion Gap 1L, Blood Urea Nitrogen 25H, Creatinine 1.0, Estimat Glomerular Filtration Rate , Glucose Level 101, Calcium Level 8.6, Total Bilirubin 0.4, Aspartate Amino Transf (AST/SGOT) 18, Alanine Aminotransferase (ALT/SGPT) 30, Alkaline Phosphatase 64, Pro-B-Type Natriuretic Peptide 16047Y, Total Protein 6.4, Albumin 2.4L, Globulin 4.0, Albumin/Globulin Ratio 0.6L Current Medications Medications (Trade) Dose Ordered Sig/Jordan Route PRN Reason Start Time Stop Time Status Last Admin Dose Admin Acetaminophen (Tylenol) 650 mg Q4H PRN ORAL fever 01/09/18 16:00 02/02/18 15:59 Albuterol/ Ipratropium (Albuterol/ Ipratropium) 3 ml Q4H PRN HHN Shortness of Breath 01/09/18 16:00 01/11/18 15:59 Albuterol/ Ipratropium (Albuterol/ Ipratropium) 3 ml Q6HRT HHN 01/09/18 19:00 01/10/18 12:59 01/10/18 08:18 Amiodarone HCl (Cordarone) 100 mg DAILY ORAL 01/10/18 09:00 02/03/18 08:59 01/10/18 09:48 Atorvastatin Calcium (Lipitor) 80 mg BEDTIME ORAL 01/09/18 21:00 02/02/18 20:59 Clonidine HCl (Catapres Tab) 0.1 mg Q4H PRN ORAL sbp more than 160 01/09/18 16:00 02/02/18 15:59 01/09/18 22:15 Dextrose (Dextrose 50%) STAT PRN IV Hypoglycemia 01/09/18 16:00 02/02/18 15:59 Heparin Sodium (Porcine) (Heparin 5000 units/ml) 5,000 units EVERY 12 HOURS SUBQ 01/09/18 21:00 02/02/18 20:59 01/10/18 09:50 Lorazepam (Ativan 2mg/ml 1ml) 0.5 mg Q4H PRN IV For Anxiety 01/09/18 16:00 01/10/18 15:59 Methylprednisolone Sodium Succinate (Solu-MEDROL) 20 mg DAILY IVP 01/10/18 09:00 02/06/18 08:59 01/10/18 09:47 Nitroglycerin (Ntg) 0.4 mg Q5M X 3 DOSES PRN SL Prn Chest Pain 01/09/18 15:30 02/02/18 18:44 Ondansetron HCl (Zofran) 4 mg Q6H PRN IVP Nausea & Vomiting 01/09/18 16:00 02/02/18 15:59 Promethazine HCl/ Codeine (Phenergan with Codeine) 5 ml Q6H PRN ORAL cough 01/09/18 16:00 02/02/18 15:59 01/09/18 18:23 Temazepam (Restoril) 15 mg HSPRN PRN ORAL Insomnia 01/09/18 16:00 01/10/18 15:59 JACOBY CADENA Jan 10, 2018 10:10
--- NOTE | 2018-01-10 10:22 | Diagnostic Imaging Report ---
Indication: Shortness of breath Technique: XRAY Chest 1v Comparison: 01/09/2018 Findings: Cardiomediastinal silhouette is stable. Bilateral interstitial opacities are again noted. There is lung base atelectasis. Left chest pacemaker is unchanged. Osseous structures are stable. Impression: No significant change from 01/09/2018.
[2018-01-10 12:00] VITALS: BP 116/59
[2018-01-10 16:00] VITALS: BP 130/67
[2018-01-10] MEDS ORDERED: NS 275ml ONE ×2 (17:34)
[2018-01-10] MEDS ORDERED: Tubing IV Secondary IV ONE (17:34)
[2018-01-10 20:15] VITALS: BP 114/65
--- NOTE | 2018-01-10 20:16 | Infectious Diseases Prog Note ---
Assessment/Plan Assessment/Plan A: influenza B infection COPD Exacerb / Bronchitis Scx: MSSA ( colonizer ) cxray : Slight worsening interstitial and airspace edema, over 2 days CHF exacerbation elevated troponin ROSA vs CKD HTN pacemaker PAF anemia dysphagia elevated LFT, probably liver congestion P: Monitor pt off of AB Rx 01/09 SP Levaquin d# 7/7 and Tamiflu d# 5/5 IV steroids Monitor CBC Monitor BMP Monitor Cultures droplet isolation cardio eval Monitor C- Xray ok to DC from ID standpoint Subjective Allergies: Coded Allergies: MORPHINE (Verified Allergy, Unknown, 01/03/18) Uncoded Allergies: LACTOSE (Allergy, Unknown, 01/03/18) Subjective afebrile Objective Vital Signs Last 24 Hour Vital Signs Date Time Temp Pulse Resp B/P (MAP) Pulse Ox O2 Delivery O2 Flow Rate FiO2 01/10/18 19:02 Nasal Cannula 2.0 28 01/10/18 19:02 98 Nasal Cannula 2.0 28 01/10/18 16:00 97.4 65 18 130/67 99 Nasal Cannula 2.0 97.4 01/10/18 12:00 97.0 70 18 116/59 100 Nasal Cannula 2.0 97.0 01/10/18 08:30 69 18 99 Nasal Cannula 2.0 28 01/10/18 08:20 98 Nasal Cannula 2.0 28 01/10/18 08:20 Nasal Cannula 2.0 28 01/10/18 08:19 65 18 98 Nasal Cannula 2.0 28 01/10/18 08:00 97.5 75 18 120/96 95 Nasal Cannula 2.0 97.5 01/10/18 04:28 98.1 60 17 126/55 99 98.1 01/10/18 00:00 97.2 68 20 127/72 99 Nasal Cannula 97.2 01/10/18 00:00 68 20 98 Nasal Cannula 2.0 28 01/10/18 00:00 97.2 68 20 127/72 99 Nasal Cannula 2.0 97.2 68 68 01/09/18 22:15 146/102 Height (Feet): 5 Height (Inches): 2.00 Weight (Pounds): 184 HEENT: normocephalic Respiratory/Chest: no accessory muscle use Cardiovascular: no gallop/murmur Abdomen: non distended Laboratory Tests Test 01/10/18 06:35 White Blood Count 4.3 K/UL (4.8-10.8) L Red Blood Count 4.06 M/UL (4.20-5.40) L Hemoglobin 11.0 G/DL (12.0-16.0) L Hematocrit 34.7 % (37.0-47.0) L Mean Corpuscular Volume 86 FL (80-99) Mean Corpuscular Hemoglobin 27.2 PG (27.0-31.0) Mean Corpuscular Hemoglobin Concent 31.8 G/DL (32.0-36.0) L Red Cell Distribution Width 14.7 % (11.6-14.8) Platelet Count 172 K/UL (150-450) Mean Platelet Volume 7.8 FL (6.5-10.1) Neutrophils (%) (Auto) 63.2 % (45.0-75.0) Lymphocytes (%) (Auto) 21.8 % (20.0-45.0) Monocytes (%) (Auto) 13.8 % (1.0-10.0) H Eosinophils (%) (Auto) 0.2 % (0.0-3.0) Basophils (%) (Auto) 1.0 % (0.0-2.0) Sodium Level 147 MMOL/L (136-145) H Potassium Level 3.8 MMOL/L (3.5-5.1) Chloride Level 107 MMOL/L (98-107) Carbon Dioxide Level 39 MMOL/L (21-32) H Anion Gap 1 mmol/L (5-15) L Blood Urea Nitrogen 25 mg/dL (7-18) H Creatinine 1.0 MG/DL (0.55-1.30) Estimat Glomerular Filtration Rate mL/min (>60) Glucose Level 101 MG/DL (74-106) Calcium Level 8.6 MG/DL (8.5-10.1) Total Bilirubin 0.4 MG/DL (0.2-1.0) Aspartate Amino Transf (AST/SGOT) 18 U/L (15-37) Alanine Aminotransferase (ALT/SGPT) 30 U/L (12-78) Alkaline Phosphatase 64 U/L (46-116) Pro-B-Type Natriuretic Peptide 52423 pg/mL (0-125) H Total Protein 6.4 G/DL (6.4-8.2) Albumin 2.4 G/DL (3.4-5.0) L Globulin 4.0 g/dL Albumin/Globulin Ratio 0.6 (1.0-2.7) L Current Medications Medications (Trade) Dose Ordered Sig/Jordan Route PRN Reason Start Time Stop Time Status Last Admin Dose Admin Acetaminophen (Tylenol) 650 mg Q4H PRN ORAL fever 01/09/18 16:00 02/02/18 15:59 Albuterol/ Ipratropium (Albuterol/ Ipratropium) 3 ml Q4H PRN HHN Shortness of Breath 01/09/18 16:00 01/11/18 15:59 Amiodarone HCl (Cordarone) 100 mg DAILY ORAL 01/10/18 09:00 02/03/18 08:59 01/10/18 09:48 Atorvastatin Calcium (Lipitor) 80 mg BEDTIME ORAL 01/09/18 21:00 02/02/18 20:59 Clonidine HCl (Catapres Tab) 0.1 mg Q4H PRN ORAL sbp more than 160 01/09/18 16:00 02/02/18 15:59 01/09/18 22:15 Dextrose (Dextrose 50%) STAT PRN IV Hypoglycemia 01/09/18 16:00 02/02/18 15:59 Heparin Sodium (Porcine) (Heparin 5000 units/ml) 5,000 units EVERY 12 HOURS SUBQ 01/09/18 21:00 02/02/18 20:59 01/10/18 09:50 Methylprednisolone Sodium Succinate (Solu-MEDROL) 20 mg DAILY IVP 01/10/18 09:00 02/06/18 08:59 01/10/18 09:47 Nitroglycerin (Ntg) 0.4 mg Q5M X 3 DOSES PRN SL Prn Chest Pain 01/09/18 15:30 02/02/18 18:44 Ondansetron HCl (Zofran) 4 mg Q6H PRN IVP Nausea & Vomiting 01/09/18 16:00 02/02/18 15:59 Promethazine HCl/ Codeine (Phenergan with Codeine) 5 ml Q6H PRN ORAL cough 01/09/18 16:00 02/02/18 15:59 01/09/18 18:23 KEYSHAWN MONTGOMERY M.D. Jan 10, 2018 20:16
[2018-01-10] MEDS: Atorvastatin 80mg tab ORAL SCH (20:23)
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
--- NOTE | 2018-01-10 23:55 | General Progress Note ---
Assessment/Plan Status: stable, progressing Assessment/Plan encephalopathy anxiety ativan prn d/w daughter Subjective Neurologic/Psychiatric: Reports: anxiety, depressed, emotional problems Allergies: Coded Allergies: MORPHINE (Verified Allergy, Unknown, 01/03/18) Uncoded Allergies: LACTOSE (Allergy, Unknown, 01/03/18) Subjective waxing and waning of consciousness Objective Last 24 Hour Vital Signs Date Time Temp Pulse Resp B/P (MAP) Pulse Ox O2 Delivery O2 Flow Rate FiO2 01/10/18 21:22 98.2 01/10/18 20:15 98.2 62 17 114/65 100 98.2 01/10/18 19:02 Nasal Cannula 2.0 28 01/10/18 19:02 98 Nasal Cannula 2.0 28 01/10/18 16:00 97.4 65 18 130/67 99 Nasal Cannula 2.0 97.4 01/10/18 12:00 97.0 70 18 116/59 100 Nasal Cannula 2.0 97.0 01/10/18 08:30 69 18 99 Nasal Cannula 2.0 28 01/10/18 08:20 98 Nasal Cannula 2.0 28 01/10/18 08:20 Nasal Cannula 2.0 28 01/10/18 08:19 65 18 98 Nasal Cannula 2.0 28 01/10/18 08:00 97.5 75 18 120/96 95 Nasal Cannula 2.0 97.5 01/10/18 04:28 98.1 60 17 126/55 99 98.1 01/10/18 00:00 97.2 68 20 127/72 99 Nasal Cannula 97.2 01/10/18 00:00 68 20 98 Nasal Cannula 2.0 28 01/10/18 00:00 97.2 68 20 127/72 99 Nasal Cannula 2.0 97.2 68 68 Intake and Output 01/09/18 01/10/18 19:00 07:00 Intake Total 600 ml 530 ml Output Total 600 ml Balance 0 ml 530 ml Intake Oral 600 ml 480 ml IV Total 50 ml Output Urine Total 600 ml # Voids 2 4 # Bowel Movements 3 Laboratory Tests 01/10/18 06:35: White Blood Count 4.3L, Red Blood Count 4.06L, Hemoglobin 11.0L, Hematocrit 34.7L, Mean Corpuscular Volume 86, Mean Corpuscular Hemoglobin 27.2, Mean Corpuscular Hemoglobin Concent 31.8L, Red Cell Distribution Width 14.7, Platelet Count 172, Mean Platelet Volume 7.8, Neutrophils (%) (Auto) 63.2, Lymphocytes (%) (Auto) 21.8, Monocytes (%) (Auto) 13.8H, Eosinophils (%) (Auto) 0.2, Basophils (%) (Auto) 1.0, Sodium Level 147H, Potassium Level 3.8, Chloride Level 107, Carbon Dioxide Level 39H, Anion Gap 1L, Blood Urea Nitrogen 25H, Creatinine 1.0, Estimat Glomerular Filtration Rate , Glucose Level 101, Calcium Level 8.6, Total Bilirubin 0.4, Aspartate Amino Transf (AST/SGOT) 18, Alanine Aminotransferase (ALT/SGPT) 30, Alkaline Phosphatase 64, Pro-B-Type Natriuretic Peptide 08103F, Total Protein 6.4, Albumin 2.4L, Globulin 4.0, Albumin/Globulin Ratio 0.6L Height (Feet): 5 Height (Inches): 2.00 Weight (Pounds): 184 General Appearance: no apparent distress, alert, confused Glory Valle M.D. Jan 10, 2018 23:55
[2018-01-11 00:14] VITALS: BP 120/55
[2018-01-11 04:33] VITALS: BP 124/69
[2018-01-11 09:00] VITALS: BP 127/74
[2018-01-11] MEDS: Heparin 5000 units/ml inj SUBQ SCH (10:05)
[2018-01-11] MEDS: Solu-MEDROL 40mg Inj IVP SCH (10:05)
[2018-01-11] MEDS: Amiodarone 200mg tab ORAL SCH (10:05)
--- NOTE | 2018-01-11 11:56 | Pulmonology Progress Note ---
Assessment/Plan Problems: (1) Acute respiratory failure (2) CHF exacerbation (3) Renal insufficiency (4) Influenza B (5) COPD exacerbation (6) Elevated troponin I level Assessment/Plan improivng no new complains on nasal cannula respiratory treatment continue abx, as per Id on tamiflu and steroids on tamiflu and levofloxacin chest pt incentive spirometry dc to correction when ok with Id Subjective ROS Limited/Unobtainable: No Constitutional: Reports: no symptoms HEENT: Repors: no symptoms Respiratory: Reports: no symptoms Cardiovascular: Reports: no symptoms Allergies: Coded Allergies: MORPHINE (Verified Allergy, Unknown, 01/03/18) Uncoded Allergies: LACTOSE (Allergy, Unknown, 01/03/18) Objective Last 24 Hour Vital Signs Date Time Temp Pulse Resp B/P (MAP) Pulse Ox O2 Delivery O2 Flow Rate FiO2 01/11/18 11:23 97.3 01/11/18 09:00 97.3 64 19 127/74 100 Nasal Cannula 2.0 97.3 01/11/18 08:57 Nasal Cannula 2.0 28 01/11/18 08:56 99 Nasal Cannula 2.0 28 01/11/18 04:33 97.5 63 16 124/69 100 97.5 01/11/18 00:14 98.2 62 17 120/55 100 98.2 01/11/18 00:00 Nasal Cannula 2.0 01/10/18 21:22 98.2 01/10/18 20:15 98.2 62 17 114/65 100 98.2 01/10/18 20:00 Nasal Cannula 2.0 01/10/18 19:02 Nasal Cannula 2.0 28 01/10/18 19:02 98 Nasal Cannula 2.0 28 01/10/18 16:00 97.4 65 18 130/67 99 Nasal Cannula 2.0 97.4 01/10/18 12:00 97.0 70 18 116/59 100 Nasal Cannula 2.0 97.0 Intake and Output 01/10/18 01/11/18 19:00 07:00 Intake Total 500 ml 240 ml Balance 500 ml 240 ml Intake Oral 500 ml 240 ml # Voids 2 # Bowel Movements 2 Objective General Appearance: WD/WN HEENT: normocephalic, atraumatic Respiratory/Chest: chest wall non-tender, normal breath sounds Breasts: no masses Cardiovascular: normal peripheral pulses Abdomen: normal bowel sounds, soft, non tender, non distended, no scars Extremities: no cyanosis Skin: no rash, no ulcers Current Medications Medications (Trade) Dose Ordered Sig/Jordan Route PRN Reason Start Time Stop Time Status Last Admin Dose Admin Acetaminophen (Tylenol) 650 mg Q4H PRN ORAL fever 01/09/18 16:00 02/02/18 15:59 01/11/18 11:23 Albuterol/ Ipratropium (Albuterol/ Ipratropium) 3 ml Q4H PRN HHN Shortness of Breath 01/09/18 16:00 01/11/18 15:59 Amiodarone HCl (Cordarone) 100 mg DAILY ORAL 01/10/18 09:00 02/03/18 08:59 01/11/18 10:05 Atorvastatin Calcium (Lipitor) 80 mg BEDTIME ORAL 01/09/18 21:00 02/02/18 20:59 01/10/18 20:23 Clonidine HCl (Catapres Tab) 0.1 mg Q4H PRN ORAL sbp more than 160 01/09/18 16:00 02/02/18 15:59 01/09/18 22:15 Dextrose (Dextrose 50%) STAT PRN IV Hypoglycemia 01/09/18 16:00 02/02/18 15:59 Heparin Sodium (Porcine) (Heparin 5000 units/ml) 5,000 units EVERY 12 HOURS SUBQ 01/09/18 21:00 02/02/18 20:59 01/11/18 10:05 Methylprednisolone Sodium Succinate (Solu-MEDROL) 20 mg DAILY IVP 01/10/18 09:00 02/06/18 08:59 01/11/18 10:05 Nitroglycerin (Ntg) 0.4 mg Q5M X 3 DOSES PRN SL Prn Chest Pain 01/09/18 15:30 02/02/18 18:44 Ondansetron HCl (Zofran) 4 mg Q6H PRN IVP Nausea & Vomiting 01/09/18 16:00 02/02/18 15:59 Promethazine HCl/ Codeine (Phenergan with Codeine) 5 ml Q6H PRN ORAL cough 01/09/18 16:00 02/02/18 15:59 01/09/18 18:23 JACOBY CADENA Jan 11, 2018 11:56
[2018-01-11 12:00] VITALS: BP 130/73
[2018-01-11] MEDS ORDERED: NS 275ml ONE (15:53)
[2018-01-11] MEDS ORDERED: Tubing IV Secondary IV ONE (15:53)
--- NOTE | 2018-01-12 15:05 | Discharge Summary ---
Discharge Summary Hospital Course Date of Admission Jan 03, 2018 at 17:15 Date of Discharge Jan 11, 2018 at 15:54 Admitting Diagnosis chf/copd HPI Gita Ponce is a 82 year old female who was admitted on Jan 03, 2018 at 17 :15 for Congestive Heart Failure,Copd Hospital Course dc summary #[id number] Discharge Medications New Medications: Levofloxacin (Levofloxacin*) 500 Mg Tablet 500 MG ORAL DAILY for 3 Days, TAB Oseltamivir Phosphate (Tamiflu) 30 Mg Capsule 30 MG ORAL TWICE A DAY for 3 Days, CAP Continued Medications: Acetaminophen* (Acetaminophen 325MG Tablet*) 325 Mg Tablet 650 MG ORAL Q6H PRN for Mild Pain/Temp > 100.5 Amiodarone Hcl* (Pacerone*) 100 Mg Tablet 100 MG ORAL DAILY Carvedilol* (Carvedilol*) 6.25 Mg Tablet 6.25 MG ORAL BID Furosemide* (Lasix*) 40 Mg Tablet 40 MG ORAL BID Ondansetron (Zofran) 4 Mg Tablet 4 MG ORAL Q6H PRN for Nausea & Vomiting, TAB Oxycodone Hcl* (Oxycodone Hcl*) 5 Mg Capsule 5 MG ORAL Q6H PRN for For Pain Simethicone* (Simethicone*) 80 Mg Tab.chew 80 MG ORAL Q6HR PRN for GAS PAIN Discharge Condition Upon Discharge: stable Discharge Disposition Patient was discharged to SNF/Subacute Facility(03) Discharge Diagnoses: Estuardo (Edgardo)Komal NP Jan 12, 2018 15:05
--- NOTE | 2018-01-12 23:03 | General Progress Note ---
Assessment/Plan Assessment/Plan encephalopathy anxiety ativan prn d/w daughter Subjective Date patient seen: Jan 11, 2018 Allergies: Coded Allergies: MORPHINE (Verified Allergy, Unknown, 01/03/18) Uncoded Allergies: LACTOSE (Allergy, Unknown, 01/03/18) Subjective waxing and waning of consciousness Objective Height (Feet): 5 Height (Inches): 2.00 Weight (Pounds): 1974 Glory Valle M.D. Jan 12, 2018 23:03
--- NOTE | 2018-01-13 13:15 | Discharge Summary 2 SIG ---
DATE OF ADMISSION: 01/03/2018 DATE OF DISCHARGE: 01/11/2018 REASON FOR ADMISSION: 82 years old female with past medical history of COPD, CHF, hypertension, and pacemaker, presented to the emergency room with shortness of breath. Upon arrival, the patient was agitated . No chest pain. No fever. No chills. Workup in the ER revealed no leukocytosis. The patient was hypoxemic, tachypneic, initially placed on nonrebreathing mask. ABG showed hypercapnia and acidosis. Chest x-ray with evidence of CHF. Pro BNP- 6307. The patient subsequently was placed on the BiPAP. EKG showed paced rhythm. Stable hemoglobin and hematocrit. Elevated troponin- 0.241. Lactic acid -2.4. Potassium -5.9. Renal insufficiency with BUN- 67 and creatinine -1.9. Elevated LFT noted: AST-79 and ALT-86. Influenza screen was positive for influenza B. The patient was admitted with diagnoses of acute hypoxemic hypercapnic respiratory failure requiring BiPAP, acute COPD exacerbation, probably acute CHF exacerbation, elevated troponin, hyperkalemia, influenza B infection, acute kidney injury versus chronic kidney disease, hypertension, pacemaker, anemia, dysphagia, and elevated LFTs, probably liver congestion. HOSPITAL COURSE: The patient was admitted to [facility]. Cardiology and Infectious Diseases consults were requested. The patient started on IV steroids, trial of theophylline, and pulmonary toilet. The patient was initially on BiPAP, weaned from the BiPAP as tolerated. The patient started on empiric antibiotic and Tamiflu. Droplet isolation maintained. Sputum culture revealed Staph aureus. Per ID, it was colonization. Cardiology evaluation requested. Serial troponin with mild elevation. Home medications such as beta-miranda, amiodarone, and statin were resumed. The patient apparently had a history of paroxysmal atrial fibrillation. She was not on anticoagulation, only aspirin. On telemetry, she demonstrated paced rhythm, no acute ischemic changes. Per hoisting laborer, the patient with chronic heart failure systolic and diastolic. The patient was on medical management of heart failure with Lasix and beta-miranda, not DIMITRY inhibitor, given renal insufficiency. Beta-miranda stopped later due to bronchospasm. Troponin revealed no peak no [place]. It did not reach level to classify as MS by WHO criteria. Minimally elevated troponin probably due to renal insufficiency Renal parameters and electrolytes were closely monitored. Electrolytes were replaced as needed. Nephrotoxics were avoided. Kayexalate was given for hyperkalemia. Swallow evaluation revealed evidence of dysphagia. The patient was edentulous . Diet downgraded as per speech therapist recommendations with strict aspiration precaution. DVT prophylaxis provided. LFTs were trending. The patient was anemic, hemoglobin and hematocrit remained on the baseline, no changes. AST and ALT trended down to normal. Transaminitis resolved, likely due to congested liver. Chest x-ray revealed some improvement in CHF. Renal parameters closely monitored and creatinine from 1.9 down to 1.0 and BUN from 67 down to 25. The patient status post treatment for influenza B and empiric antibiotic treatment for bronchitis. Psychiatrist seen and evaluated the patient, optimized psychiatric medication regimen. The patient was stable for [facility]. FINAL DIAGNOSES: 1. Acute hypoxemic, hypercapnic respiratory failure requiring BiPAP, resolved. 2. Acute chronic obstructive pulmonary disease exacerbation, improved. 3. Bronchospasm. 4. Bronchitis. 5. Chronic heart failure, systolic and diastolic. 6. Abnormal cardiac enzymes( of questionable significance secondary to renal insufficiency). 7. Pulmonary hypertension. 8. Coronary artery disease. 9. Hyperkalemia, status post treatment. 10. Influenza B infection, status post treatment. 11. Acute kidney injury, resolved. 12. Hypertension. 13. Pacemaker. 14. Paroxysmal atrial fibrillation. 15. Anemia. 16. Dysphagia. 17. Elevated liver function tests, resolved. 18. Diabetes mellitus type 2. 19. Dysphagia. 20. Encephalopathy. 21. Anxiety. DISCHARGE MEDICATIONS: See medication reconciliation list. DISCHARGE INSTRUCTIONS: The [facility] to [facility] facility. FOLLOWUP: Follow up with medical doctor at the facility. Dayo Garcia M.D. [facility] N[facility] DR: Rene JOB#: [id number] CC: [facility]
== END 2018-01-11 15:54 | DRG 291 ==
LOC: EDBD 16:26 → EMR 16:30 → 2W 17:15 → EDBEDREQ 20:36 → 4E 01-09 16:27
PROC: 5A09357 Assistance with Respiratory Ventilation, Less than 24 Consecutive Hours, Continuous Positive Airway Pressure (ICD-10-PCS; principal; 2018-01-03)
DX: I13.0 Hypertensive heart and chronic kidney disease with heart failure and stage 1 through stage 4 chronic kidney disease, or unspecified chronic kidney disease (principal); J96.02 Acute respiratory failure with hypercapnia; N17.9 Acute kidney failure, unspecified; G93.40 Encephalopathy, unspecified; J96.01 Acute respiratory failure with hypoxia; J44.1 Chronic obstructive pulmonary disease with (acute) exacerbation; E87.5 Hyperkalemia; R13.10 Dysphagia, unspecified; I48.0 Paroxysmal atrial fibrillation; E11.22 Type 2 diabetes mellitus with diabetic chronic kidney disease; I27.20 Pulmonary hypertension, unspecified; G40.909 Epilepsy, unspecified, not intractable, without status epilepticus; I50.42 Chronic combined systolic (congestive) and diastolic (congestive) heart failure; I50.9 Heart failure, unspecified; J10.1 Influenza due to other identified influenza virus with other respiratory manifestations; N18.9 Chronic kidney disease, unspecified; Z95.810 Presence of automatic (implantable) cardiac defibrillator; I25.10 Atherosclerotic heart disease of native coronary artery without angina pectoris; Z95.5 Presence of coronary angioplasty implant and graft; I25.5 Ischemic cardiomyopathy; D50.9 Iron deficiency anemia, unspecified; I25.2 Old myocardial infarction; F41.9 Anxiety disorder, unspecified
CPT/HCPCS: 36415; 36600; 71045; 80048; 80053; 80061; 81003; 82150; 82550; 82553; 82803; 83605; 83690; 83880; 84443; 84484; 85007; 85025; 86710; 87040; 87070; 87081; 87181; 87205; 93005; 93306; 94640; 94660; 94664; 94760; 99291; J7620; J8499